=== PATIENT | male | born 1985 | race Caucasian/White ===

== ENCOUNTER 2017-06-03 14:30 | Outpatient (RCR) | payer MEDICARE, BC ==
[2016-04-05 09:57] VITALS: BMI 23.1
--- NOTE | 2017-05-27 15:45 | PT INITIAL EVALUATION ---
MEDICAL DIAGNOSIS: L) LE ulcer TREATMENT DIAGNOSIS: L) LE venous stasis ulcer s/p traumatic injury DATE OF ONSET: 05/20/17 SUBJECTIVE: . Pt reports that he had a "Grand Mal Seizure" about a week ago [place] of [place] cour[place]. At that time he reports that he lost consciousness and injured his L) LE. He developed wounds and edema on the L) LE and was referred for PT wound care by his PCP. REHAB PROBLEM LIST: Open wound L) LE and increased edema of L) LE PREVIOUS MEDICAL HISTORY: See EMR, complex psycho-social history, seizures OBJECTIVE: Wound measurements: L) anterior bang 1 cm L x 0.8 cm W x0.2 cm D Girth Measurements: R) LE: superior to malleoli: 27 cm mid calf: 31 cm L) LE superior to malleoli: 31 cm mid calf: 43 cm ABIs: R) LE: 1.12 L) LE: 1.3 ASSESSMENT: Pt presents with significant edema of the L) distal LE with a small wound present on the distal bang with surrounding excoriation and superficial scratches. PT assessed pt's ROM and resisted muscle testing, with no obvious increase in pain nor evidence of musculoskeletal injury at this time. PT cleansed the distal LE with a washcloth and soap and completed conservative, selective debridement of non-viable tissue and slough with tweezers to the depth of the subcutaneous tissue in order to reveal wound base on the anterior bang. ABIs were completed bilaterally and found to be WNL. PT placed petroleum based moisture barrier cream on the LE and then applied 2 stage compression wraps in a retrograde fashion. Pt educated on importance of LE elevation to assist with edema management and wound healing. He was encouraged to maintain LE wrap in place until f/u appt next Tuesday. All of this information was also relayed to the patient's mother who was present in the waiting room. The patient will benefit from skilled PT wound care to include sharps debridement, advanced wound care product selection and application as well as compression therapy to facilitate wound healing. Short Term Goals 1: Pt to remain dressing dry and intact in between visits 2: Wound to demonstrate 100% granulation tissue 3: Wound to gradually epithelialize from edges inward and demo 100% closure 4: Pt to obtain appropriate compression garment to manage LE edema Patient's Goals: Non expressed PLAN: Patient to be seen for skilled PT wound care to include sharps debridement, advanced wound care product selection and application as well as compression therapy to facilitate wound healing 2x/Week for up to 90 days Thank you for this referral. If you have any questions, comments, or concerns about this report or plan, please contact me at . Jing Sandra, PT, DPT [facility]
[~2017-06-03 14:30] MED LIST: ASPI-1403 PO; ASPI-1471 PO; CBD OIL; CEFU250T11 PO; CEPH500T7 PO; CHL25 PO; CHOL10005 PO; CHOL200038 PO; CLI150 PO; CLIN-75 PO; CYC10 PO; CYCL10TA29 PO; DIA5 PO; DIAZ-311 PO; DIV250 PO; DIV500 PO; DIVA250T84 PO; DIVA500T98 PO; FOL1 PO; FOLI-68 PO; GABA-503 PO; GABA-549 PO; HYDR-4309 PO; IBU800 PO; IBUP600T22 PO; IBUP800T37 PO; LAC100PT GT; LAC100PT PO; LAC200PT JT; LAC200PT PO; LACO150T4 PO; LAM25 PO; LAMO25TA64 PO; LEVO750T25 PO; LIDO20SO21 MM; LOR1 PO; LOR5 PO; LORA-1458 PO; MILK140C3 PO; MULT-7 PO; MULT-859 PO; NO MEDICATIONS; OLAN5TAB25 PO; OMEG-11 PO; PHEN100 PO; PRE20 PO; PRED20TA6 PO; PROM-110 PO; SERT20OR6 PO; SULF-198 PO; THIA100T2 PO; THIA100T3 PO; TRA50 PO; TRIA15OI20 TP; [UNRECOGNIZED DRUG - CODE] PO; [UNRECOGNIZED DRUG - OTHER]; no routine meds; vitamins
--- NOTE | 2017-06-03 16:58 | PT PLAN OF CARE ---
Physician: Dr. Bedoya Patient is being seen: Jorge Luis Mckeon Therapist: Jing Sandra, PT, DPT Medical Diagnosis: L) LE ulcer Treatment Diagnosis: L) LE venous stasis ulcer s/p traumatic injury Date of Onset: 05/20/17 Date of Initial Evaluation: 05/27/17 Date patient was last seen: 06/03/17 Number of treatments: 3 Number of cancellations/No shows: 0 INTERVENTIONS: Pt has been seen for advanced wound care product selection and skilled sharps debridement as well as compression wrap application. GOALS: Met 1: Pt to remain dressing dry and intact in between visits 2: Wound to demonstrate 100% granulation tissue 3: Wound to gradually epithelialize from edges inward and demo 100% closure 4: Pt to obtain appropriate compression garment to manage LE edema (pt and pt's mother report that he does own compression socks) PATIENT'S GOAL: Wound healing Status of Patient's Goals: Met Patient Compliance: Good Assessment: Pt reports decreased pain in the L) LE today. Scant drainage present on compression wrap of L) LE, with complete epithelization of wound on anterior bang. Area of distal LE demonstrates erythema and continued excoriation of skin with no definitive areas of breakdown requiring skilled PT debridement at this time. PT would like the pt to f/u with his PCP regarding the ongoing irritation and edema of the L) LE. With the pt's mother present, PT recommended that the pt continue to use mild soap to cleanse the LE, cover the area with gentle lotion and leave the LE open to air. The pt and his mother report that he does have compression socks, PT recommended that the pt wear these until f/u with PCP. Pt and mother are agreeable to this POC, message left with Dr. Bedoya's nurse. Thank you for this referral. If you have any questions, comments, or concerns about this report or plan, please contact me at . Jing Sandra, PT, [facility]
== END 2017-06-03 18:00 | disposition home or self-care (01) ==
LOC: PT 14:30
PROVIDERS: ATTEND Emergency Medicine
DX: I83.028 Varicose veins of left lower extremity with ulcer other part of lower leg (principal); R60.9 Edema, unspecified; G40.409 Other generalized epilepsy and epileptic syndromes, not intractable, without status epilepticus
CPT/HCPCS: 97161

== ENCOUNTER 2017-07-01 11:15 | Emergency (ER) | payer MEDICARE, BC ==
[2016-04-05 09:57] VITALS: Ht 182.9 cm; Wt 68.0 kg
[~2017-07-01] VITALS: Ht 182.9 cm; Wt 68.0 kg
[~2017-07-01 11:15] MED LIST changes: -COMPRESSION HOSE; -FURO-45 PO; -SERT-173 PO; +SERT20OR6 PO
--- NOTE | 2017-07-01 11:34 | ER Report ---
History and Physical Time Seen By MD: 11:34 Hx. of Stated Complaint: PT HAS A VERY SWOLLEN L LEG FOR 6-12 MONTHS. HE IS SEEN BY DR BEDOYA FOR THIS , BUT ALL ANTIBX INCREASE HIS SEIZURES. SO, HE HAS BEEN SELF MEDICATING WITH ALCOHOL. 1 LITER OF ETOH THIS AM. HAS NOT BEEN EATING MUCH BECAUSE THERE IS NO ONE TO COOK FOR HIM. HIS MOM VISITS EVERYDAY, BUT HIS DAD 19 YRS AGO AND HE IS VERY SAD ABOUT THIS HPI/ROS CHIEF COMPLAINT: Alcohol abuse, leg pain, depression HISTORY OF PRESENT ILLNESS: 31-year-old male patient presents to emergency room with complaint of alcohol abuse, leg pain and depression. Patient states that he drinks a significant amount of vodka on a daily basis. He states that he's had a liter of vodka this morning. He states that he drinks which seems to help his anxiety as well as his seizures. He states he's never had a seizure when he is drinking. He states that he drinks mostly because his father 17 years ago and he is just sad about that. He states that he cries daily about the passing of his father. He states that shortly after his father passed way that his grandmother moved him from [place] to [place]. He states that 5 years after they moved to [place] his grandmother . He states that he also is very sad about that she was an acting father figure. He states that he has a neighbor who cooks for him but he does not go to his house for dinner. He states that his mother comes over daily, but it is gotten the point where he is not letting her in the house. He states that he is not showered or brushed his teeth in several days. He that he is anxious about losing his leg. He states that he has pain and has difficult time walking because of that. REVIEW OF SYSTEMS: Respiratory: No cough, no dyspnea. Cardiovascular: No chest pain, no palpitations. Gastrointestinal: No vomiting, no abdominal pain. Musculoskeletal: No back pain. Allergies: Coded Allergies: Penicillins (Verified Allergy, Severe, ANAPHYLAXIS, 07/01/17) phenobarbital (Verified Allergy, Unknown, 07/01/17) Reported by Patient but states he doesnt know what happens to him. Uncoded Allergies: VERY SENSITIVE TO ALL MEDICATIONS (Allergy, Mild, 06/02/11) Home Meds Reported Medications [place]-3 Fatty Acids/Fish Oil (FISH OIL 1,000 MG CAPSULE) 1 Each Capsule, 1 EACH PO QDAY, CAPSULE 04/21/17 Cholecalciferol (Vitamin D3) (VITAMIN D3) 1,000 Unit Tablet, 1000 UNIT PO QDAY, TAB 04/21/17 Folic Acid (FOLIC ACID) 1 Mg Tablet, 1 MG PO QDAY, TAB 04/21/17 Thiamine Mononitrate (VITAMIN B-1) 100 Mg Tablet, 100 MG PO DAILY 02/13/17 Multivits,Ca,Minerals/Iron/FA (Thera M Plus Tablet) 1 Each Tablet, 1 TAB PO DAILY 02/13/17 Past Medical/Surgical History Patient has a past medical history of aneurysm, epilepsy, Tourette's, DVT, urinary incontinence, fracture of right tib-fib, jaw fracture, clavicle fracture , neck fracture, alcohol use, depression. Patient has a surgical history of right leg surgery. Patient has a family medical history of psychiatric problems. Reviewed Nurses Notes: Yes Hx Smoking: Yes Smoking Status: Former Smoker Exposure to Second Hand Smoke?: Yes Hx Substance Use Disorder: No (Patient reports drug problem 10 years ago) Hx Alcohol Use: Yes Constitutional Vital Sign - Last 24 Hours 07/01/17 07/01/17 07/01/17 07/01/17 11:12 11:15 11:30 11:45 Temp 99.5 Pulse 96 97 Resp 20 B/P (MAP) 122/79 125/87 (100) Pulse Ox 99 96 96 O2 Delivery Room Air 07/01/17 07/01/17 07/01/17 07/01/17 12:00 12:15 12:30 12:35 Pulse 99 ??? B/P (MAP) 118/87 (97) 115/74 (88) Pulse Ox 96 07/01/17 07/01/17 07/01/17 07/01/17 13:00 13:05 13:30 13:35 Pulse 95 120 B/P (MAP) 121/92 (102) 134/65 (88) Pulse Ox 97 100 07/01/17 07/01/17 07/01/17 07/01/17 14:00 14:05 14:10 14:30 Pulse 109 108 B/P (MAP) 120/65 (83) 113/64 (80) Pulse Ox 98 97 2/07/1707/01/17 07/01/17 07/01/17 15:00 15:10 15:30 15:50 Pulse 99 106 112 B/P (MAP) 118/74 (89) 120/80 (93) Pulse Ox 98 96 95 07/01/17 16:00 B/P (MAP) 112/70 (84) Physical Exam General Appearance: The patient is alert, has no immediate need for airway protection and no current signs of toxicity. ENT: Tympanic membranes are pearly-levi, auditory canals are patent, mixed mucous membranes are moist. Respiratory: Chest is non tender, lungs are clear to auscultation. Cardiac: regular rate and rhythm Gastrointestinal: Abdomen is soft and non tender, no masses, bowel sounds normal. Musculoskeletal: Neck: Neck is supple and non tender. Extremities have full range of motion and are non tender. Patient does have swelling, erythema to the left lower extremity. Skin: No rashes or lesions. DIFFERENTIAL DIAGNOSIS: After history and physical exam differential diagnosis was considered for DVT, cellulitis, depression, alcohol abuse. Medical Decision Making Data Points Result Diagram: 07/01/17 1104 07/01/17 1104 Laboratory Hematology Test 07/01/17 11:04 07/01/17 15:09 Red Blood Count 4.40 M/uL (4.00-5.60) Mean Corpuscular Volume 100.7 fL (80.0-96.0) Mean Corpuscular Hemoglobin 34.7 pg (26.0-33.0) Mean Corpuscular Hemoglobin Concent 34.4 g/dL (32.0-36.0) Red Cell Distribution Width 14.3 % (11.5-14.5) Mean Platelet Volume 7.3 fL (7.2-11.1) Neutrophils (%) (Auto) 72.0 % (39.4-72.5) Lymphocytes (%) (Auto) 18.0 % (17.6-49.6) Monocytes (%) (Auto) 8.9 % (4.1-12.4) Eosinophils (%) (Auto) 0.9 % (0.4-6.7) Basophils (%) (Auto) 0.2 % (0.3-1.4) Nucleated RBC Relative Count (auto) 0.1 /100WBC Neutrophils # (Auto) 4.6 K/uL (2.0-7.4) Lymphocytes # (Auto) 1.2 K/uL (1.3-3.6) Monocytes # (Auto) 0.6 K/uL (0.3-1.0) Eosinophils # (Auto) 0.1 K/uL (0.0-0.5) Basophils # (Auto) 0.0 K/uL (0.0-0.1) Nucleated RBC Absolute Count (auto) 0.00 K/uL Sodium Level 140 mmol/L (137-145) Potassium Level 3.8 mmol/L (3.5-5.0) Chloride Level 99 mmol/L (98-107) Carbon Dioxide Level 23 mmol/L (22-30) Blood Urea Nitrogen 11 mg/dl (9-21) Creatinine 0.80 mg/dl (0.66-1.25) Glomerular Filtration Rate Calc > 60.0 Random Glucose 111 mg/dl (75-110) Calcium Level 8.8 mg/dl (8.4-10.2) Magnesium Level 1.7 mg/dl (1.7-2.2) Total Bilirubin 1.2 mg/dl (0.2-1.3) Aspartate Amino Transf (AST/SGOT) 78 U/L (0-35) Alanine Aminotransferase (ALT/SGPT) 73 U/L (0-56) Alkaline Phosphatase 127 U/L (0-126) Total Protein 8.0 gm/dl (6.3-8.2) Albumin 4.3 g/dl (3.5-5.0) Thyroid Stimulating Hormone (TSH) 0.56 uIU/ml (0.46-4.68) Salicylates Level < 10 mg/L Salicylate Last Dose Date unk Acetaminophen Level < 10 ug/ml Serum Alcohol 98 mg/dl Troponin I < 0.012 ng/ml Chemistry Test 07/01/17 11:04 07/01/17 15:09 White Blood Count 6.5 k/uL (4.5-11.0) Red Blood Count 4.40 M/uL (4.00-5.60) Hemoglobin 15.2 g/dL (14.0-18.0) Hematocrit 44.3 % (42.0-52.0) Mean Corpuscular Volume 100.7 fL (80.0-96.0) Mean Corpuscular Hemoglobin 34.7 pg (26.0-33.0) Mean Corpuscular Hemoglobin Concent 34.4 g/dL (32.0-36.0) Red Cell Distribution Width 14.3 % (11.5-14.5) Platelet Count 207 K/uL (150-450) Mean Platelet Volume 7.3 fL (7.2-11.1) Neutrophils (%) (Auto) 72.0 % (39.4-72.5) Lymphocytes (%) (Auto) 18.0 % (17.6-49.6) Monocytes (%) (Auto) 8.9 % (4.1-12.4) Eosinophils (%) (Auto) 0.9 % (0.4-6.7) Basophils (%) (Auto) 0.2 % (0.3-1.4) Nucleated RBC Relative Count (auto) 0.1 /100WBC Neutrophils # (Auto) 4.6 K/uL (2.0-7.4) Lymphocytes # (Auto) 1.2 K/uL (1.3-3.6) Monocytes # (Auto) 0.6 K/uL (0.3-1.0) Eosinophils # (Auto) 0.1 K/uL (0.0-0.5) Basophils # (Auto) 0.0 K/uL (0.0-0.1) Nucleated RBC Absolute Count (auto) 0.00 K/uL Glomerular Filtration Rate Calc > 60.0 Calcium Level 8.8 mg/dl (8.4-10.2) Magnesium Level 1.7 mg/dl (1.7-2.2) Total Bilirubin 1.2 mg/dl (0.2-1.3) Aspartate Amino Transf (AST/SGOT) 78 U/L (0-35) Alanine Aminotransferase (ALT/SGPT) 73 U/L (0-56) Alkaline Phosphatase 127 U/L (0-126) Total Protein 8.0 gm/dl (6.3-8.2) Albumin 4.3 g/dl (3.5-5.0) Thyroid Stimulating Hormone (TSH) 0.56 uIU/ml (0.46-4.68) Salicylates Level < 10 mg/L Salicylate Last Dose Date unk Acetaminophen Level < 10 ug/ml Serum Alcohol 98 mg/dl Troponin I < 0.012 ng/ml Toxicology Test 07/01/17 11:04 Salicylates Level < 10 mg/L Salicylate Last Dose Date unk Acetaminophen Level < 10 ug/ml Serum Alcohol 98 mg/dl EKG/Imaging EKG Interpretation 12 lead EKG: Done at 1229 Rhythm: normal sinus rhythm with a ventricular rate of 92 bpm [place]: normal QRS: normal ST segments: normal 12 lead EKG: Done at 1434 Rhythm: Sinus tachycardia with ventricular rate of 108 bpm [place]: normal QRS: normal ST segments: normal Imaging Exam type: CHEST PA AND LAT History: chest tightness Comparison: March 17, 2017. Findings: The lungs are free of acute effusions, infiltrates or edema. There is no evidence of a pneumothorax or pneumomediastinum. The trachea is midline. The cardiac silhouette is normal in size. IMPRESSION: 1. No acute cardiac pulmonary process is seen Report Dictated By: Saray Castillo MD at 07/01/2017 2:59 PM Report E-Signed By: Saray Castillo MD at 07/01/2017 3:00 PM Exam type: VENOUS DOPP LOW LEFT EXTREMITY History: swelling Comparison: February 12, 2017. Findings: The left lower extremity veins were imaged including the left common femoral vein, greater saphenous vein superficial femoral vein, popliteal vein, peroneal vein, posterior tibial vein and anterior tibial vein revealing no evidence of trauma thrombi the veins were compressible and phasic.. Incidentally noted is a 1 x 3.2 cm fatty replaced left inguinal lymph node IMPRESSION: 1. No sonographic evidence of DVT involving the left lower extremity veins Report Dictated By: Saray Castillo MD at 07/01/2017 2:05 PM Report E-Signed By: Saray Castillo MD at 07/01/2017 2:07 PM ED Course/Re-evaluation ED Course Patient was admitted to exam, history and physical were obtained. Differential diagnoses were considered. On examination patient has swelling to the left lower extremity, is erythematous, he does have several areas where there was scratching and he has scabs. Labs for a behavioral health admission were done. Patient had an alcohol of 98, CBC was unremarkable, CMP showed no acute findings. An ultrasound of the left lower extremity was ordered. When the leather coater tech went in to do the ultrasound patient had a seizure. The seizure lasted approximately one minute. Patient was given 1 mg of Ativan. He then given 0.5 mg of Ativan orally prior to that. He was complaining of anxiety at that time. Was also complaining of chest tightness and a EKG, chest x-ray and troponin were done. The troponin was negative, EKG was a normal sinus rhythm with a ventricular rate of 95 bpm. The patient was postictal for a period of time. A repeat troponin was done as well as a repeat EKG. Patient had a sinus tachycardia with a ventricular rate of 105 bpm. Troponin was again negative. I went and discussed the findings with the patient. We discussed starting him on antibiotics for his cellulitis which he refused. We will go ahead and discharge patient home as we have no other means to help the patient. The patient was concerned about the swelling of his leg, however without a DVT the patient can elevate his leg as well as his compression. Patient has been given Ryan wrap to put on his legs in the past but the patient never used it. Patient is to follow-up with his primary care provider on July 07 at 1:30 PM. Patient verbalized understanding and agreement with plan. Decision to Disposition Date: Jul 01, 2017 Decision to Disposition Time: 15:54 Depart Departure Latest Vital Signs Vital Signs Date Time Temp Pulse Resp B/P (MAP) Pulse Ox O2 Delivery O2 Flow Rate FiO2 07/01/17 16:00 112/70 (84) 07/01/17 15:50 112 95 07/01/17 11:12 99.5 20 Room Air Impression: Primary Impression: Venous ulcer of left leg Additional Impressions: Cellulitis Seizure disorder Alcohol intoxication Condition: Improved Disposition: HOME OR SELF-CARE Referrals: STEPHANIE BEDOYA MD (PCP) Patient Instructions: Cellulitis (ED) Additional Instructions: Follow up with Dr. Bedoya, 07/07/2017 at 1:30pm. Quit drinking alcohol, go to [place] for inpatient treatment as you have been looking. Make sure that you are getting some exercise daily, walking as much as possible. Take Tylenol or Ibuprofen as needed for pain. Elevate the foot when not active. Start taking more ownership of your life, make things that you want to happen happen; walk, shower, quit drinking. Problem Qualifiers Additional Impressions: Cellulitis Site of cellulitis: extremity Site of cellulitis of extremity: lower extremity Laterality: left Qualified Codes: L03.116 - Cellulitis of left lower limb Alcohol intoxication Complication of substance-induced condition: uncomplicated Qualified Codes: F10.920 - Alcohol use, unspecified with intoxication, uncomplicated PURNIMA PICKETT Jul 01, 2017 11:34
[2017-07-01 11:42] LABS: PLATELET COUNT, AUTOMATED 207 K/uL (150-450)
[2017-07-01] MEDS ORDERED: THIAMINE HCL(*) 200 MG/2 ML IN 100 MG, FOLIC ACID(*) 50 MG/10 ML INJ 1 MG, MULTIVITAMIN... IV ONE (11:56)
--- NOTE | 2017-07-01 12:45 | EKG ---
FACILITY: [facility] PATIENT NAME: CONSUELO PERES : [id number] MR: [id number] V: [id number] EXAM DATE: ORDERING PHYSICIAN: PURNIMA PICKETT TECHNOLOGIST: Test Reason : Blood Pressure : / mmHG Vent. Rate : 092 BPM Atrial Rate : 092 BPM P-R Int : 138 ms QRS Dur : 086 ms QT Int : 374 ms P-R-T Axes : 050 068 055 degrees QTc Int : 462 ms Normal sinus rhythm Normal ECG When compared with ECG of 18-APR-2017 10:40, No significant change was found Confirmed by GUTIERREZ MORALES ([id number]) on 07/02/2017 7:44:47 AM Referred By: NIEVES Confirmed By:GUTIERREZ MORALES
[2017-07-01] MEDS ORDERED: LORazepam 0.5 MG TAB PO ONE (12:50)
[2017-07-01] MEDS ORDERED: LORazepam 2 MG/ML VIAL ONE (13:19)
--- NOTE | 2017-07-01 14:12 | RADIOLOGY IMAGING REPORT ---
FACILITY: [facility] PATIENT NAME: Jorge Luis Mckeon : 1985 MR: [id number] V: [id number] EXAM DATE: ORDERING PHYSICIAN: PURNIMA PICKETT TECHNOLOGIST: Location: [facility] [place] Patient: Jorge Luis Mckeon : 1985 Visit/Account:[id number] Date of Sevice: 07/01/2017 Exam type: VENOUS DOPP LOW LEFT EXTREMITY History: swelling Comparison: February 12, 2017. Findings: The left lower extremity veins were imaged including the left common femoral vein, greater saphenous vein superficial femoral vein, popliteal vein, peroneal vein, posterior tibial vein and anterior tibi al vein revealing no evidence of trauma thrombi the veins were compressible and phasic.. Incidentall y noted is a 1 x 3.2 cm fatty replaced left inguinal lymph node IMPRESSION: 1. No sonographic evidence of DVT involving the left lower extremity veins Report Dictated By: Saray Castillo MD at 07/01/2017 2:05 PM Report E-Signed By: Saray Castillo MD at 07/01/2017 2:07 PM WSN:[email or web address]
--- NOTE | 2017-07-01 15:04 | RADIOLOGY IMAGING REPORT ---
FACILITY: [facility] [place] PATIENT NAME: Jorge Luis Mckeon : 1985 MR: [id number] V: [id number] EXAM DATE: ORDERING PHYSICIAN: PURNIMA PICKETT TECHNOLOGIST: Location: [facility] Patient: Jorge Luis Mckeon : 1985 Visit/Account:[id number] Date of Sevice: 07/01/2017 Exam type: CHEST PA AND LAT History: chest tightness Comparison: March 17, 2017. Findings: The lungs are free of acute effusions, infiltrates or edema. There is no evidence of a pneumothorax or pneumomediastinum. The trachea is midline. The cardiac silhouette is normal in size. IMPRESSION: 1. No acute cardiac pulmonary process is seen Report Dictated By: Saray Castillo MD at 07/01/2017 2:59 PM Report E-Signed By: Saray Castillo MD at 07/01/2017 3:00 PM WSN:[email or web address]
--- NOTE | 2017-07-01 15:09 | EKG ---
FACILITY: [facility] [place] PATIENT NAME: CONSUELO PERES : [id number] MR: [id number] V: [id number] EXAM DATE: ORDERING PHYSICIAN: PURNIMA PICKETT TECHNOLOGIST: Test Reason : Blood Pressure : / mmHG Vent. Rate : 108 BPM Atrial Rate : 108 BPM P-R Int : 144 ms QRS Dur : 088 ms QT Int : 348 ms P-R-T Axes : 057 076 056 degrees QTc Int : 466 ms Sinus tachycardia Otherwise normal ECG When compared with ECG of 01-JUL-2017 12:29, No significant change was found Confirmed by GUTIERREZ MORALES ([id number]) on 07/02/2017 7:44:53 AM Referred By: Confirmed By:GUTIERREZ MORALES
[2017-07-01 16:00] VITALS: BP 112/70
== END 2017-07-01 16:36 | disposition home or self-care (01) ==
LOC: ER 11:17
DX: I86.8 Varicose veins of other specified sites (principal); F10.920 Alcohol use, unspecified with intoxication, uncomplicated; L03.116 Cellulitis of left lower limb; G40.909 Epilepsy, unspecified, not intractable, without status epilepticus
CPT/HCPCS: 71046; 83735; 84443; 84484; 85025; 93005; 93971; 99285; A9270; G0480; J2060; J3411; J3475; J7030; 80320; 80329; 82040; 82247; 82310; 82374; 82435; 82565; 82947; 84075; 84132; 84155; 84295; 84450; 84460; 84520; 96361; 96365; 96372; 96374; 96375

== ENCOUNTER → 2017-07-01 | Outpatient (CLI) | payer MEDICARE, BC ==
[2016-04-05 09:57] VITALS: BMI 23.1
[~2017-07-01] MED LIST changes: +COMPRESSION HOSE; +FURO-45 PO; +SERT-173 PO; -SERT20OR6 PO
== END ==
LOC: AMB 10:44
PROVIDERS: ATTEND Nurse Practitioner
DX: M79.605 Pain in left leg (principal); M79.89 Other specified soft tissue disorders; L98.9 Disorder of the skin and subcutaneous tissue, unspecified
CPT/HCPCS: A0425; A0427

== ENCOUNTER 2017-07-08 12:53 | Emergency (ER) | payer MEDICARE, BC ==
[2016-04-05 09:57] VITALS: Ht 185.4 cm; Wt 86.2 kg
[~2017-07-08] VITALS: Ht 185.4 cm; Wt 86.2 kg
[~2017-07-08 12:53] MED LIST changes: +SERT-173 PO; -SERT20OR6 PO
--- NOTE | 2017-07-08 13:26 | ER Report ---
History and Physical Time Seen By MD: 13:02 Hx. of Stated Complaint: LEFT LEG SWOLLEN AND PAINFUL HPI/ROS CHIEF COMPLAINT: Left leg pain and swelling HISTORY OF PRESENT ILLNESS: Patient is a 31-year-old male who presents the ED with complaint of left leg pain and swelling that is had for "a long time". He is unable to give me an exact day. I did ask him if he has any recent injuries. He states that he could have head injury because he has seizures often. He also states that he does have alcoholism and sometimes will fall. He states that he is trying to stop drinking. Patient states that he was seen by his primary care provider last week and did have an ultrasound of his leg that did not reveal any DVT. He states that his leg has been worse since. He states that he was not placed on any antibiotics. He states that the antibiotics causes seizures. He denies any fever. REVIEW OF SYSTEMS: Constitutional: No fever, no chills. Eyes: No discharge. ENT: No sore throat. Cardiovascular: No chest pain, no palpitations. Respiratory: No cough, no shortness of breath. Gastrointestinal: No abdominal pain, no vomiting. Genitourinary: No hematuria. Musculoskeletal: No back pain. Skin: See history of present illness. Neurological: No headache. Allergies: Coded Allergies: Penicillins (Verified Allergy, Severe, ANAPHYLAXIS, 07/08/17) phenobarbital (Verified Allergy, Unknown, 07/08/17) Reported by Patient but states he doesnt know what happens to him. Uncoded Allergies: VERY SENSITIVE TO ALL MEDICATIONS (Allergy, Mild, 06/02/11) Home Meds Reported Medications [place]-3 Fatty Acids/Fish Oil (FISH OIL 1,000 MG CAPSULE) 1 Each Capsule, 1 EACH PO QDAY, CAPSULE 04/21/17 Cholecalciferol (Vitamin D3) (VITAMIN D3) 1,000 Unit Tablet, 1000 UNIT PO QDAY, TAB 04/21/17 Folic Acid (FOLIC ACID) 1 Mg Tablet, 1 MG PO QDAY, TAB 04/21/17 Thiamine Mononitrate (VITAMIN B-1) 100 Mg Tablet, 100 MG PO DAILY 02/13/17 Multivits,Ca,Minerals/Iron/FA (Thera M Plus Tablet) 1 Each Tablet, 1 TAB PO DAILY 02/13/17 Reviewed Nurses Notes: Yes Old Medical Records Reviewed: Yes Hx Smoking: Yes Smoking Status: Former Smoker Exposure to Second Hand Smoke?: Yes Hx Substance Use Disorder: No (Patient reports drug problem 10 years ago) Hx Alcohol Use: Yes (1 LITER DAILY) Constitutional Vital Sign - Last 24 Hours 07/08/17 13:01 Temp 100.2 Pulse 113 Resp 92 B/P (MAP) 133/82 Pulse Ox 92 O2 Delivery Room Air Physical Exam General Appearance: The patient is alert, has no immediate need for airway protection and no signs of toxicity. Patient appears to be in no acute distress. Eyes: Pupils equal and round no pallor or injection. ENT, Mouth: Mucous membranes are moist. Respiratory: There are no retractions, lungs are clear to auscultation. Cardiovascular: Regular rate and rhythm. ] Skin: There is erythema and swelling noted of the left lower leg. It appears that the erythema starts at the mid calf and and goes down through the entire foot. PT and DP pulses are 2+ with normal capillary refill. Normal sensation. Is have 2-3+ pitting edema in this area. Musculoskeletal: Neck is supple non tender. DIFFERENTIAL DIAGNOSIS: After history and physical exam differential diagnosis was considered for left leg swelling including DVT, cellulitis, fracture, sprain. This is an incomplete list. Medical Decision Making Data Points Result Diagram: 07/08/17 1321 07/08/17 1321 Laboratory Hematology Test 07/08/17 13:21 Red Blood Count 4.28 M/uL (4.00-5.60) Mean Corpuscular Volume 101.4 fL (80.0-96.0) Mean Corpuscular Hemoglobin 34.5 pg (26.0-33.0) Mean Corpuscular Hemoglobin Concent 34.0 g/dL (32.0-36.0) Red Cell Distribution Width 13.8 % (11.5-14.5) Mean Platelet Volume 7.0 fL (7.2-11.1) Neutrophils (%) (Auto) 76.7 % (39.4-72.5) Lymphocytes (%) (Auto) 11.9 % (17.6-49.6) Monocytes (%) (Auto) 10.3 % (4.1-12.4) Eosinophils (%) (Auto) 0.3 % (0.4-6.7) Basophils (%) (Auto) 0.8 % (0.3-1.4) Nucleated RBC Relative Count (auto) 0.1 /100WBC Neutrophils # (Auto) 5.1 K/uL (2.0-7.4) Lymphocytes # (Auto) 0.8 K/uL (1.3-3.6) Monocytes # (Auto) 0.7 K/uL (0.3-1.0) Eosinophils # (Auto) 0.0 K/uL (0.0-0.5) Basophils # (Auto) 0.1 K/uL (0.0-0.1) Nucleated RBC Absolute Count (auto) 0.01 K/uL Sodium Level 138 mmol/L (137-145) Potassium Level 3.8 mmol/L (3.5-5.0) Chloride Level 101 mmol/L (98-107) Carbon Dioxide Level 24 mmol/L (22-30) Blood Urea Nitrogen 9 mg/dl (9-21) Creatinine 0.80 mg/dl (0.66-1.25) Glomerular Filtration Rate Calc > 60.0 Random Glucose 123 mg/dl (75-110) Calcium Level 9.1 mg/dl (8.4-10.2) Total Bilirubin 0.8 mg/dl (0.2-1.3) Aspartate Amino Transf (AST/SGOT) 98 U/L (0-35) Alanine Aminotransferase (ALT/SGPT) 94 U/L (0-56) Alkaline Phosphatase 126 U/L (0-126) C-Reactive Protein 1.1 mg/dl (<1.0) Total Protein 7.6 gm/dl (6.3-8.2) Albumin 3.9 g/dl (3.5-5.0) Serum Alcohol < 10 mg/dl Chemistry Test 07/08/17 13:21 White Blood Count 6.7 k/uL (4.5-11.0) Red Blood Count 4.28 M/uL (4.00-5.60) Hemoglobin 14.8 g/dL (14.0-18.0) Hematocrit 43.4 % (42.0-52.0) Mean Corpuscular Volume 101.4 fL (80.0-96.0) Mean Corpuscular Hemoglobin 34.5 pg (26.0-33.0) Mean Corpuscular Hemoglobin Concent 34.0 g/dL (32.0-36.0) Red Cell Distribution Width 13.8 % (11.5-14.5) Platelet Count 206 K/uL (150-450) Mean Platelet Volume 7.0 fL (7.2-11.1) Neutrophils (%) (Auto) 76.7 % (39.4-72.5) Lymphocytes (%) (Auto) 11.9 % (17.6-49.6) Monocytes (%) (Auto) 10.3 % (4.1-12.4) Eosinophils (%) (Auto) 0.3 % (0.4-6.7) Basophils (%) (Auto) 0.8 % (0.3-1.4) Nucleated RBC Relative Count (auto) 0.1 /100WBC Neutrophils # (Auto) 5.1 K/uL (2.0-7.4) Lymphocytes # (Auto) 0.8 K/uL (1.3-3.6) Monocytes # (Auto) 0.7 K/uL (0.3-1.0) Eosinophils # (Auto) 0.0 K/uL (0.0-0.5) Basophils # (Auto) 0.1 K/uL (0.0-0.1) Nucleated RBC Absolute Count (auto) 0.01 K/uL Glomerular Filtration Rate Calc > 60.0 Calcium Level 9.1 mg/dl (8.4-10.2) Total Bilirubin 0.8 mg/dl (0.2-1.3) Aspartate Amino Transf (AST/SGOT) 98 U/L (0-35) Alanine Aminotransferase (ALT/SGPT) 94 U/L (0-56) Alkaline Phosphatase 126 U/L (0-126) C-Reactive Protein 1.1 mg/dl (<1.0) Total Protein 7.6 gm/dl (6.3-8.2) Albumin 3.9 g/dl (3.5-5.0) Serum Alcohol < 10 mg/dl Toxicology Test 07/08/17 13:21 Serum Alcohol < 10 mg/dl ED Course/Re-evaluation ED Course Will obtain labs. 07/08/2017 1:59:58 pm - discussed all labs with patient. Patient has no leukocytosis and no significant elevation of CRP. All labs are essentially normal. Did raise the leg and the erythema didn't dissipate. It appears that this swelling is likely due to venous stasis changes versus lymphedema. Discussed this with him and the importance of wrapping his leg and keeping elevated when resting. Advised to follow up with his primary care provider. [email or web address] technical lead and nurse will wrap leg today. Advised to take Tylenol or ibuprofen for pain relief as needed. Decision to Disposition Date: Jul 08, 2017 Decision to Disposition Time: 14:01 Depart Departure Latest Vital Signs Vital Signs Date Time Temp Pulse Resp B/P (MAP) Pulse Ox O2 Delivery O2 Flow Rate FiO2 07/08/17 13:01 100.2 113 92 133/82 92 Room Air Impression: Primary Impression: Left leg swelling Disposition: HOME OR SELF-CARE Referrals: STEPHANIE FINK MD (PCP) Patient Instructions: Lymphedema (ED), Venous Insufficiency (GEN) Additional Instructions: Keep leg elevated and wrapped when resting. Follow-up with primary care provider in 2-3 days. May take Tylenol or ibuprofen for pain relief. If having any worsening or concerning symptoms may return to the emergency department. BERNADETTE PALUMBO PA-C Jul 08, 2017 13:26
[2017-07-08 13:35] LABS: PLATELET COUNT, AUTOMATED 206 K/uL (150-450)
[2017-07-08 14:26] VITALS: BP 121/87
== END 2017-07-08 14:30 | disposition home or self-care (01) ==
LOC: ER 12:54
DX: M79.89 Other specified soft tissue disorders (principal)
CPT/HCPCS: 85025; 86140; 87070; 87073; 87077; 87186; 99283; G0480; 80320; 82040; 82247; 82310; 82374; 82435; 82565; 82947; 84075; 84132; 84155; 84295; 84450; 84460; 84520

== ENCOUNTER → 2017-07-12 | Emergency (ER) | payer MEDICARE, BC ==
[2016-04-05 09:57] VITALS: Ht 185.4 cm; Wt 86.2 kg
[~2017-07-12] VITALS: Ht 185.4 cm; Wt 86.2 kg
[~2017-07-12] MED LIST changes: +COMPRESSION HOSE; +FURO-45 PO
--- NOTE | 2017-07-12 18:34 | ER Report ---
History and Physical Time Seen By MD: 18:33 HPI/ROS CHIEF COMPLAINT: Medical clearance for admission to mental health facility HISTORY OF PRESENT ILLNESS: 31-year-old male with a known history of alcoholism , seizures, numerous other medical problems. Presents to the ER stating that he was called by [facility] and told to come to the ER for a medical clearance so that he can be admitted to their facility for alcohol withdrawal treatment. Patient states his last alcohol was within hours. Patient voices no complaints. He denies headache, nausea, vomiting, chest pain or shortness of breath. He has chronic edema of the left lower extremity. He has a bruise to his left eyelid that appears to be several days old. Patient states his mom will transport him to [facility] for admission. RECENT DISCHARGE SUMMARY copied from 04/21/2017 noted below: FINAL DIAGNOSES PER DSM-V Alcohol withdrawal, considered complete and minimal to nonexistent in nature. Alcohol use disorder, mild to moderate, important only for its role in continued fictitious disorder. 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 Dependent personality disorder, severe. Ongoing enmeshed codependent unhealthy relationship with his mother with which he lives. Employment and financial stressors. Severe maladaptive stress coping mechanisms. REASON FOR ADMISSION This is a 31-year-old male who is very well known to the emergency room, multiple providers, and this behavioral health unit. The patient was admitted on a voluntary basis for alcohol withdrawal, encouraged strongly by his mother' s report in the ER. The patient was found to not have any notable physiologic withdrawal from alcohol, the patient's mother reporting he is drinking "a half gallon of whiskey a day." Please see H and P for further details on admission. Patient again proved to be a very inaccurate historian, extremely manipulative , both consciously and unconsciously. Patient was noted to purposely walk around on the unit, with obvious feces staining his clothing, in an effort to attract attention, then proclaiming he was unaware of it, when prompted to change clothing. Patient noted to be feigning seizure symptoms on the unit once again with such odd behaviors as during seizure, picking dried mucus from his nares and orally consuming it. This appears to be in an effort to display activities which patient later can deny knowledge or remembering of based on their abnormalcy in an effort to prove seizure activity that is out of his control. Notably, prolactin level remained in normal limits drawn shortly after seizure activity. Patient also displaying at other times other multitude of symptomatology during stay, especially when frustrated, including that he "can't see," "can't breathe," "can't remember." When this did not work, to garnish attention, patient was then assuming threatening posturing positions directed at this provider and threatening this provider with lawsuit. Patient stating to this provider "I have never been angry before." Much time was spent on the unit addressing the loulou and ongoing solidification of fictitious disorder with psychological and physical symptoms, both with this patient and his mother. Patient's mother continues to inadvertently promote the sick role in this patient by allowing cohabitation and focus on rare diseases such as porphyria as the cause of patient's illness, which has already been ruled out. Patient and patient's mother once again encouraged strongly to seek effective outpatient therapy management and to try to separate their lives for the future benefit of this patient. Patient at one point noted to be writing an AMA letter and simultaneously stating "I will in the street as soon as I leave the hospital." Patient stayed enough to ensure that alcohol withdrawal was treated to completion, was found to be insignificant much like it was 1 year ago on the medical floor when patient was treated for alcohol dependence. It is the opinion of this provider that patient is likely portraying a large amount of alcohol consumption to his mother in the home that far exceeds what he is actually drinking in an effort to further use alcoholism as yet another symptom of fictitious disorder. It is notable that patient's mother attends Al- Anon meetings and has for quite some time while the patient himself does little to avoid any alcohol consumption and simultaneously rejects all recommended care of his health and continues to live in her home. Patient was discharged directly into the care of his mother again due to vague threats of harm upon leaving the unit. PHYSICAL EXAMINATION GENERAL: Please see emergency room note. Notable for 31-year-old male who is very well known to the emergency room department. Patient is in no acute distress, having lower extremity cellulitis which patient also does not treat. No acute medical stress. VITAL SIGNS: At time of admission, temperature 98.8, pulse 116, respiratory rate 22, blood pressure 112/81, and pulse oximetry 96 on room air. At time of discharge from [facility], temperature 98.7, pulse 75, respiratory rate 16, blood pressure 108/78, pulse oximetry 94 on room air. LABORATORY DATA Prolactin level drawn shortly after displayed seizure activity found to be within normal limits at 15.1 on the unit. CBC at time of admission showed RBCs low at 3.86, hemoglobin low at 13.2, hematocrit low at 37.8, MCV 97.8 and elevated, and MCH 34.2 and elevated. Platelet count was low at 124. Chemistry panel notable for AST and ALT both elevated at 136 and 105. Troponins undetectable. TSH low at 0.24. Toxicology screen notable for serum alcohol level of 28 upon admission. MENTAL STATUS EXAMINATION AT TIME OF DISCHARGE GENERAL APPEARANCE, BEHAVIOR AND ATTITUDE: This is a slightly disheveled 31- year-old male who continues to avoid most self-care without being prompted. Psychomotor retardation evident. Patient making fair eye contact. Continuing to interact in a sarcastic manner. SPEECH: Intentionally slowed at times, considered baseline for this patient. MOOD: Stated okay. AFFECT: Constricted and baseline for this patient. THOUGHT PROCESSES: Goal directed. Patient's aim was to discharge from the hospital. No loose associations or flight of ideas. THOUGHT CONTENT: Free of any auditory or visual hallucinations, ideas of reference, thought broadcastings, delusions, obsessions, compulsions. Patient now denying suicidal or homicidal thoughts. SENSORIUM: Clear. COGNITION: Alert and oriented to person, place, time, partially to situation, disrupted only by patient's inability to fully comprehend and realize fictitious disorder diagnosis. MEMORY: Immediate, recent, and remote estimated at intact. INTELLIGENCE: Average to slightly below, based on interviews and multiple past admissions. INSIGHT AND JUDGMENT: Remains limited secondary to grossly maladaptive stress coping mechanisms and ongoing fictitious disorder symptomatology and patient's codependent relationship with his mother and patient's lack of interest in deviating from solidification of fictitious disorder. RESULTS OF TESTING AND IMAGING See electronic record. LABORATORY DATA See above. CONSULTATIONS None. TREATMENT The patient received very minimal valium to cover any potential withdrawal, which proved of no concern. Patient was encouraged to participate in individual and group therapy. HOSPITAL COURSE The patient continued to act in a very immature and infantile manner and was an inaccurate historian. Patient noted to be stating pain levels of 10/10 while simultaneously asking if he could exercise or use exercise equipment. Patient rejecting all medications and once again rejecting going back on his medications originally prescribed by neurologist for potential seizure disorder. Patient also indicating that single low dose of Valium caused major side effects. Patient displaying a multitude of infantile behaviors, stating " I can't breathe," stating "I can't see," displaying pseudoseizure activities with purposeful bizarre movements such as picking his nose and eating dried mucus during pseudoseizure activity. Patient threatening to this staff member with threatening posturing and then threatening lawsuit. Much time was spent with both patient and his mother regarding the loulou and ongoing solidification of fictitious disorder in this patient and much guidance was given in an effort to guide patient and his mother away from constant search of medical concerns and instead accepting fictitious disorder and seeking proper treatment for it on an outpatient basis. Outpatient treatment was once again set up to try to alleviate symptoms of this disorder. CONDITION OF PATIENT ON DISCHARGE Stable, considered a minimal risk to himself or others. DISPOSITION Patient discharged to home. Patient would follow up with outpatient therapy and medication management. Patient encouraged to take antibiotic for lower extremity swelling as prescribed by PCP. Patient in need of therapy to foster independence and avoid further solidification of sick role. Medications to include vitamin D3 at 1000 International Units daily, omega 3 at 1000 p.o. q.a.m., folic acid 1 mg daily, vitamin B1 at 100 mg daily, and multivitamin with minerals daily were encouraged. Patient encouraged to take aspirin daily as recommended by primary care provider, which he is not. Patient also encouraged to take Vimpat once again that patient has been prescribed for years and refuses to take to merchant off any actual seizure disorder symptoms. Patient was encouraged to stop all alcohol use. Risks, benefits, and alternatives of above discharge plan were discussed. Informed consent was given to proceed with above discharge plan by both this patient and patient's mother, and patient would call crisis line should symptoms return. It is recommended that if patient return to this ER, for behavioral health symptoms that he and his mother seek treatment at another hospital, as patient has not been making progress with any treatment we have to offer him. Notably both the patient and his Mother continue to ignore pursuit of treatment for factitious disorder, and severe dependent personality disorder, but choose instead to promote a variety of symptomatologies, associated with disorder. <Electronically signed by DANNY MEIER MD> [id number]/ [id number] REVIEW OF SYSTEMS: Respiratory: No cough, no dyspnea. Cardiovascular: No chest pain, no palpitations. Gastrointestinal: No vomiting, no abdominal pain. Musculoskeletal: No back pain. Allergies: Coded Allergies: Penicillins (Verified Allergy, Severe, ANAPHYLAXIS, 07/12/17) phenobarbital (Verified Allergy, Unknown, 07/12/17) Reported by Patient but states he doesnt know what happens to him. Uncoded Allergies: VERY SENSITIVE TO ALL MEDICATIONS (Allergy, Mild, 06/02/11) Home Meds Discontinued Reported Medications [place]-3 Fatty Acids/Fish Oil (FISH OIL 1,000 MG CAPSULE) 1 Each Capsule, 1 EACH PO QDAY, CAPSULE 04/21/17 Cholecalciferol (Vitamin D3) (VITAMIN D3) 1,000 Unit Tablet, 1000 UNIT PO QDAY, TAB 04/21/17 Folic Acid (FOLIC ACID) 1 Mg Tablet, 1 MG PO QDAY, TAB 04/21/17 Thiamine Mononitrate (VITAMIN B-1) 100 Mg Tablet, 100 MG PO DAILY 02/13/17 Multivits,Ca,Minerals/Iron/FA (Thera M Plus Tablet) 1 Each Tablet, 1 TAB PO DAILY 02/13/17 Past Medical/Surgical History Patient has a past medical history of aneurysm, epilepsy, Tourette's, DVT, urinary incontinence, fracture of right tib-fib, jaw fracture, clavicle fracture , neck fracture, alcohol use, depression. Patient has a surgical history of right leg surgery. Patient has a family medical history of psychiatric problems. Reviewed Nurses Notes: Yes Old Medical Records Reviewed: Yes Hx Smoking: Yes Smoking Status: Former Smoker Exposure to Second Hand Smoke?: Yes Hx Substance Use Disorder: No (Patient reports drug problem 10 years ago) Hx Alcohol Use: Yes (1 LITER DAILY) Constitutional Vital Sign - Last 24 Hours 07/12/17 07/12/17 19:42 20:30 Temp 97.9 Pulse 88 86 Resp 14 12 B/P (MAP) 125/80 131/86 (101) Pulse Ox 91 89 O2 Delivery Room Air Physical Exam General Appearance: The patient is alert, has no immediate need for airway protection and no current signs of toxicity. Vital signs stable, afebrile, pulse ox normal HEENT: Pupils equal and round no injection. There is ecchymosis of the left lower lid that appears to be old, facial bones intact, oropharynx without evidence of dental trauma Respiratory: Chest is non tender, lungs are clear to auscultation. No wheezing or rails Cardiac: regular rate and rhythm Gastrointestinal: Abdomen is soft and non tender, no masses, bowel sounds normal. Musculoskeletal: Neck: Neck is supple and non tender. Extremities have full range of motion and are non tender. There is significant edema of the left lower extremity Skin: No rashes or lesions. DIFFERENTIAL DIAGNOSIS: After history and physical exam differential diagnosis was considered for depression including functional and major depression, situational depression, medication side effect, drugs and alcohol abuse. Medical Decision Making Data Points Result Diagram: 07/12/17191607/12/171916 Laboratory Hematology Test 07/12/17 19:17 Red Blood Count 4.21 M/uL (4.00-5.60) Mean Corpuscular Volume 102.0 fL (80.0-96.0) Mean Corpuscular Hemoglobin 34.8 pg (26.0-33.0) Mean Corpuscular Hemoglobin Concent 34.1 g/dL (32.0-36.0) Red Cell Distribution Width 14.2 % (11.5-14.5) Mean Platelet Volume 7.0 fL (7.2-11.1) Neutrophils (%) (Auto) 45.6 % (39.4-72.5) Lymphocytes (%) (Auto) 42.1 % (17.6-49.6) Monocytes (%) (Auto) 8.8 % (4.1-12.4) Eosinophils (%) (Auto) 2.9 % (0.4-6.7) Basophils (%) (Auto) 0.6 % (0.3-1.4) Nucleated RBC Relative Count (auto) 0.0 /100WBC Neutrophils # (Auto) 1.3 K/uL (2.0-7.4) Lymphocytes # (Auto) 1.2 K/uL (1.3-3.6) Monocytes # (Auto) 0.3 K/uL (0.3-1.0) Eosinophils # (Auto) 0.1 K/uL (0.0-0.5) Basophils # (Auto) 0.0 K/uL (0.0-0.1) Nucleated RBC Absolute Count (auto) 0.00 K/uL Sodium Level 140 mmol/L (137-145) Potassium Level 3.9 mmol/L (3.5-5.0) Chloride Level 101 mmol/L (98-107) Carbon Dioxide Level 26 mmol/L (22-30) Blood Urea Nitrogen 10 mg/dl (9-21) Creatinine 0.70 mg/dl (0.66-1.25) Glomerular Filtration Rate Calc > 60.0 Random Glucose 95 mg/dl (75-110) Calcium Level 9.0 mg/dl (8.4-10.2) Magnesium Level 1.9 mg/dl (1.7-2.2) Total Bilirubin 0.5 mg/dl (0.2-1.3) Aspartate Amino Transf (AST/SGOT) 104 U/L (0-35) Alanine Aminotransferase (ALT/SGPT) 107 U/L (0-56) Alkaline Phosphatase 102 U/L (0-126) Total Protein 7.6 gm/dl (6.3-8.2) Albumin 3.9 g/dl (3.5-5.0) Salicylates Level < 10 mg/L Salicylate Last Dose Date unk Acetaminophen Level < 10 ug/ml Serum Alcohol 126 mg/dl Chemistry Test 07/12/17 19:17 White Blood Count 2.9 k/uL (4.5-11.0) Red Blood Count 4.21 M/uL (4.00-5.60) Hemoglobin 14.7 g/dL (14.0-18.0) Hematocrit 42.9 % (42.0-52.0) Mean Corpuscular Volume 102.0 fL (80.0-96.0) Mean Corpuscular Hemoglobin 34.8 pg (26.0-33.0) Mean Corpuscular Hemoglobin Concent 34.1 g/dL (32.0-36.0) Red Cell Distribution Width 14.2 % (11.5-14.5) Platelet Count 180 K/uL (150-450) Mean Platelet Volume 7.0 fL (7.2-11.1) Neutrophils (%) (Auto) 45.6 % (39.4-72.5) Lymphocytes (%) (Auto) 42.1 % (17.6-49.6) Monocytes (%) (Auto) 8.8 % (4.1-12.4) Eosinophils (%) (Auto) 2.9 % (0.4-6.7) Basophils (%) (Auto) 0.6 % (0.3-1.4) Nucleated RBC Relative Count (auto) 0.0 /100WBC Neutrophils # (Auto) 1.3 K/uL (2.0-7.4) Lymphocytes # (Auto) 1.2 K/uL (1.3-3.6) Monocytes # (Auto) 0.3 K/uL (0.3-1.0) Eosinophils # (Auto) 0.1 K/uL (0.0-0.5) Basophils # (Auto) 0.0 K/uL (0.0-0.1) Nucleated RBC Absolute Count (auto) 0.00 K/uL Glomerular Filtration Rate Calc > 60.0 Calcium Level 9.0 mg/dl (8.4-10.2) Magnesium Level 1.9 mg/dl (1.7-2.2) Total Bilirubin 0.5 mg/dl (0.2-1.3) Aspartate Amino Transf (AST/SGOT) 104 U/L (0-35) Alanine Aminotransferase (ALT/SGPT) 107 U/L (0-56) Alkaline Phosphatase 102 U/L (0-126) Total Protein 7.6 gm/dl (6.3-8.2) Albumin 3.9 g/dl (3.5-5.0) Salicylates Level < 10 mg/L Salicylate Last Dose Date unk Acetaminophen Level < 10 ug/ml Serum Alcohol 126 mg/dl Toxicology Test 07/12/17 19:17 Salicylates Level < 10 mg/L Salicylate Last Dose Date unk Acetaminophen Level < 10 ug/ml Serum Alcohol 126 mg/dl ED Course/Re-evaluation ED Course Patient was admitted to an examination room. H&P was done. The differential diagnoses was considered. Patient's previous records were reviewed extensively. Diagnostic laboratory studies for medical clearance were performed. Patient's asymptomatic. His vital signs are stable. He is afebrile , pulse ox is normal He admits to drinking. His blood alcohol returns at 126. He has elevated MCV. His LFTs are mildly elevated. Contact was made with [facility]. They are aware of the patient. They are waiting full medical clearance and diagnostic test results.. 07/12/2017 9:48:25 pm patient was seen leaving the waiting room and entering a car on the surveillance video. He would not cooperate and provide a decent urine specimen to run analysis on. He urinated all over the bathroom floor. I suspect he did this on purpose. Decision to Disposition Date: Jul 12, 2017 Decision to Disposition Time: 19:16 Depart Departure Latest Vital Signs Vital Signs Date Time Temp Pulse Resp B/P (MAP) Pulse Ox O2 Delivery O2 Flow Rate FiO2 07/12/17 20:30 86 12 131/86 (101) 89 Room Air 07/12/17 19:42 97.9 Impression: Primary Impression: Alcohol dependence Additional Impressions: Factitious disorder with combined physical and psychological symptoms Venous stasis dermatitis of both lower extremities Condition: Improved Disposition: AGAINST MED ADV / DISCONT CARE Referrals: STEPHANIE FINK MD (PCP) New Scripts No Active Prescriptions or Reported Meds Problem Qualifiers Primary Impression: Alcohol dependence Substance use status: unspecified alcohol-induced disorder Qualified Codes: F10.29 - Alcohol dependence with unspecified alcohol-induced disorder KELLI LIU DO Jul 12, 2017 18:34
[2017-07-12 19:25] LABS: PLATELET COUNT, AUTOMATED 180 K/uL (150-450)
[2017-07-12 20:30] VITALS: BP 131/86
== END ==
LOC: ER 19:28
DX: F10.20 Alcohol dependence, uncomplicated (principal); F68.13 Factitious disorder imposed on self, with combined psychological and physical signs and symptoms
CPT/HCPCS: 36415; 83735; 84443; 85025; 99282; G0480; 80320; 80329; 82040; 82247; 82310; 82374; 82435; 82565; 82947; 84075; 84132; 84155; 84295; 84450; 84460; 84520

== ENCOUNTER 2017-07-22 15:33 | Outpatient (RCR) | payer MEDICARE, BC ==
[2016-04-05 09:57] VITALS: BMI 23.1
--- NOTE | 2017-07-15 16:50 | PT INITIAL EVALUATION ---
MEDICAL DIAGNOSIS: L) LE ulceration and edema TREATMENT DIAGNOSIS: L) posterior calf venous stasis ulcers DATE OF ONSET: Pt presented to ER on 07/01/17 with L) LE edema and wounds SUBJECTIVE: . Patient presents today with extensive edema of the L) LE with dried and flaking skin as well as ulceration present on the posterior calf. Pt' s pants and socks are thoroughly stained with drainage. A majority of history information was obtained from the pt's EMR and most recent ER visits as the pt provides minimal subjective information. This patient was seen for PT wound care from 05/27/17-06/03/17 with good healing of L) LE wound. PT recommended that pt use compression stockings on bilateral LEs and continued routine skin cleansing and moisturizing. He was seen on the ER on 07/01/17 for L) LE edema. A DVT was ruled out, and the pt refused to use antibiotics at D/C. Pt was seen again in the ER on 07/08/17 for continued L) LE swelling and pain. His labs were normal, and he was diagnosed with venous stasis vs. lymphedema of of the L) LE , it was recommended that he use compression wraps and f/u with PCP. On 07/11/17 the pt followed up with his PCP. He was referred to PT wound care and given a prescription for Bactrim, he reports that he does not plan to fill this prescription d/t potential side effects. REHAB PROBLEM LIST: Open wound and edema of L) LE PREVIOUS MEDICAL HISTORY: Complex psychosocial history (see EMR for details), seizure disorder, previous wounds, cellulitis OBJECTIVE: Special Tests: Stemmer's test: negative L) LE Other Objective Findings: Wound measurements: L) posterior calf wound: 1 cm L x 1.5 cm W x 0.2 cm D L) posterior distal calf wound: 0.5 cm L x 0.5 cm W x 0.2 cm D Girth Measurements R) LE: Superior to malleoli: 27 cm Mid Calf: 40.5 cm L) LE: Superior to malleoli: 33.5 cm Mid Calf: 47.5 cm ASSESSMENT: Pt present with extensive edema of the L) LE with dried and flaking skin across entire distal LE. PT cleansed LE with gentle soap and majority of dried skin was removed to reveal underlying areas of excoriation and drainage. Moderate erythema present across distal LE. Posterior calf reveal 2 areas of necrosis, with dried eschar. PT removed this eschar to reveal underlying wounds with slough present across wound bases. PT completed conservative, selective debridement of non-viable tissue and slough with tweezers to the depth of the subcutaneous tissue. Wounds cleansed with sterile saline and entire LE treated with petroleum based moisture barrier cream. L) LE wrapped in retrograde fashion with coflex 2 layer compression wrap. Pt will benefit from skilled PT wound care to included sharps debridement as well as advanced wound care product application and compression therapy to facilitate wound healing and prevent further complications. Short Term Goals 1: Pt to maintain clean, dry and intact dressing between wound care visits 2: Wound to demonstrate 100% granulation tissue with no s/s of infection 3: Wound to demonstrate 100% epithelialization and complete closure 4: Pt to obtain appropriate compression garments prior to d/c Patient's Goals: No goals expressed PLAN: Patient to be seen for PT wound care to included sharps debridement as well as advanced wound care product application and compression therapy to facilitate wound healing and prevent further complications, 1-2x/week for up to 90 days Thank you for this referral. If you have any questions, comments, or concerns about this report or plan, please contact me at . Jing Sandra, PT, DPT MTDD
--- NOTE | 2017-08-12 15:52 | PT PLAN OF CARE ---
Physician: Dr. Bedoya Patient is being seen: Jorge Luis Mckeon Therapist: Jing Sandra, PT, DPT Medical Diagnosis: L) LE ulceration and edema Treatment Diagnosis: L) posterior calf venous stasis ulcer Date of Onset: Pt presented to ER on 07/01/17 with L) LE edema and wounds Date of Initial Evaluation: 07/15/17 Date patient was last seen: 07/22/17 Number of treatments: 2 Number of cancellations/No shows: 3 no shows INTERVENTIONS: Pt was seen for initial evaluation as well as second treatment session which included sharps debridement as well as advanced wound care product selection and application. Pt was non-compliant with use of antibiotics and therefore continued with untreated cellulitis of the L) LE d/t fear of seizures. This was reported to the pt's PCP, the patient no showed to next wound care appts. GOALS: -- not met 1: Pt to maintain clean, dry and intact dressing between wound care visits 2: Wound to demonstrate 100% granulation tissue with no s/s of infection 3: Wound to demonstrate 100% epithelialization and complete closure 4: Pt to obtain appropriate compression garments prior to d/c PATIENT'S GOAL: No goals expressed Patient Compliance: Poor Prognosis: Poor Reasons for continuing therapy: Pt was seen for last appointment on 07/22/17. At that time the patient presented with worsening cellulitis of the L) LE but refused to fill antibiotic prescription d/t fear of seizures. PT recommended that the patient f/u immediately with his PCP for further medical management. This PT discussed recommendation with Dr. Bedoya's RN, who reported that the patient never followed up in their clinic. The patient was a no show x3 weeks for wound care appts. and therefore is discharged per policy. [facility]
== END 2017-07-22 18:00 | disposition home or self-care (01) ==
LOC: PT 15:33
PROVIDERS: ATTEND Emergency Medicine
DX: L97.221 Non-pressure chronic ulcer of left calf limited to breakdown of skin (principal); L03.116 Cellulitis of left lower limb; I87.2 Venous insufficiency (chronic) (peripheral); R60.0 Localized edema; I83.029 Varicose veins of left lower extremity with ulcer of unspecified site
CPT/HCPCS: 97161

== ENCOUNTER 2017-08-09 01:30 | Emergency (ER) | payer MEDICARE, BC ==
[2016-04-05 09:57] VITALS: Wt 86.2 kg
--- NOTE | 2017-08-09 01:35 | ER Report ---
History and Physical Time Seen By MD: 01:35 HPI/ROS CHIEF COMPLAINT: leg pain and swelling, leg ulcers HISTORY OF PRESENT ILLNESS: This is a 31 year old male. He has swelling and statis ulcers of the left leg. These are lower leg from the ankle to midway up the leg. no wounds on the foot. He has pain, but has normal sensation. He denies having any fevers but states he has no thermometer to measure his temperature. Pain has been worsening. He says his doctor put him on an antibiotic, but he stopped it because all antibiotics cause seizures. He denies shortness of breath. He denies chest pain. Allergies: Coded Allergies: Penicillins (Verified Allergy, Severe, ANAPHYLAXIS, 08/09/17) phenobarbital (Verified Allergy, Unknown, 08/09/17) Reported by Patient but states he doesnt know what happens to him. Uncoded Allergies: VERY SENSITIVE TO ALL MEDICATIONS (Allergy, Mild, 06/02/11) Home Meds Discontinued Scripts Sulfamethoxazole/Trimet 800-160 Mg Tab (BACTRIM DS TABLET) 1 Each Tablet, 1 TAB PO Q12H, #20 TAB Prov:STEPHANIE FINK MD 07/13/17 Furosemide (FUROSEMIDE) 20 Mg Tablet, 1 TAB PO DAILY, #14 TAB Prov:STEPHANIE FINK MD 07/13/17 [Compression hose] No Conflict Check, 1 MISC Thigh high moderate compression hose for both legs Prov:STEPHANIE FINK MD 07/13/17 Reviewed Nurses Notes: Yes Hx Smoking: Yes Smoking Status: Former Smoker Exposure to Second Hand Smoke?: Yes Hx Substance Use Disorder: No (Patient reports drug problem 10 years ago) Hx Alcohol Use: Yes (1 LITER DAILY) Constitutional Vital Sign - Last 24 Hours 08/09/17 08/09/17 08/09/17 08/09/17 01:34 01:35 01:45 02:00 Temp 99.3 Pulse 63 69 59 Resp 16 B/P (MAP) 118/88 (98) 118/88 Pulse Ox 97 98 98 O2 Delivery Room Air 08/09/17 08/09/17 08/09/17 08/09/17 02:15 02:30 02:45 03:00 Pulse 63 61 B/P (MAP) 137/87 (104) 123/102 (109) Pulse Ox 100 99 100 08/09/17 03:00 B/P (MAP) 123/102 (109) Physical Exam General Appearance: The patient is alert, has no immediate need for airway protection and no current signs of toxicity. Eyes: Pupils equal and round no injection. ENT: Normal oral mucosa. Moist mucous membranes. Respiratory: Breathing easily, clear. Cardiac: regular rate and rhythm Musculoskeletal: Pain with palpation of the lower leg. Skin: erythema extending from the malleoli to the mid bang. Warmth associated with this. Weeping ulcers, some with crusting. DIFFERENTIAL DIAGNOSIS: After history and physical exam differential diagnosis was considered for lower leg swelling, ulcers and concern for DVT and cellulitis. Medical Decision Making Data Points Result Diagram: 08/09/17 0120 08/09/17 0120 Laboratory Hematology Test 08/09/17 01:20 Red Blood Count 4.25 M/uL (4.00-5.60) Mean Corpuscular Volume 103.6 fL (80.0-96.0) Mean Corpuscular Hemoglobin 35.8 pg (26.0-33.0) Mean Corpuscular Hemoglobin Concent 34.6 g/dL (32.0-36.0) Red Cell Distribution Width 14.5 % (11.5-14.5) Mean Platelet Volume 7.7 fL (7.2-11.1) Neutrophils (%) (Auto) 56.8 % (39.4-72.5) Lymphocytes (%) (Auto) 28.5 % (17.6-49.6) Monocytes (%) (Auto) 12.6 % (4.1-12.4) Eosinophils (%) (Auto) 1.9 % (0.4-6.7) Basophils (%) (Auto) 0.2 % (0.3-1.4) Nucleated RBC Relative Count (auto) 0.0 /100WBC Neutrophils # (Auto) 3.0 K/uL (2.0-7.4) Lymphocytes # (Auto) 1.5 K/uL (1.3-3.6) Monocytes # (Auto) 0.7 K/uL (0.3-1.0) Eosinophils # (Auto) 0.1 K/uL (0.0-0.5) Basophils # (Auto) 0.0 K/uL (0.0-0.1) Nucleated RBC Absolute Count (auto) 0.00 K/uL Peripheral Blood Smear No Y/N Erythrocyte Sedimentation Rate 21 mm/HOUR (0-15) Sodium Level 138 mmol/L (137-145) Potassium Level 3.9 mmol/L (3.5-5.0) Chloride Level 100 mmol/L (98-107) Carbon Dioxide Level 23 mmol/L (22-30) Blood Urea Nitrogen 9 mg/dl (9-21) Creatinine 0.80 mg/dl (0.66-1.25) Glomerular Filtration Rate Calc > 60.0 Random Glucose 102 mg/dl (75-110) Calcium Level 9.2 mg/dl (8.4-10.2) Total Bilirubin 0.8 mg/dl (0.2-1.3) Aspartate Amino Transf (AST/SGOT) 75 U/L (0-35) Alanine Aminotransferase (ALT/SGPT) 113 U/L (0-56) Alkaline Phosphatase 110 U/L (0-126) C-Reactive Protein 0.5 mg/dl (<1.0) Total Protein 8.0 gm/dl (6.3-8.2) Albumin 4.3 g/dl (3.5-5.0) Serum Alcohol < 10 mg/dl Chemistry Test 08/09/17 01:20 White Blood Count 5.3 k/uL (4.5-11.0) Red Blood Count 4.25 M/uL (4.00-5.60) Hemoglobin 15.2 g/dL (14.0-18.0) Hematocrit 44.0 % (42.0-52.0) Mean Corpuscular Volume 103.6 fL (80.0-96.0) Mean Corpuscular Hemoglobin 35.8 pg (26.0-33.0) Mean Corpuscular Hemoglobin Concent 34.6 g/dL (32.0-36.0) Red Cell Distribution Width 14.5 % (11.5-14.5) Platelet Count 195 K/uL (150-450) Mean Platelet Volume 7.7 fL (7.2-11.1) Neutrophils (%) (Auto) 56.8 % (39.4-72.5) Lymphocytes (%) (Auto) 28.5 % (17.6-49.6) Monocytes (%) (Auto) 12.6 % (4.1-12.4) Eosinophils (%) (Auto) 1.9 % (0.4-6.7) Basophils (%) (Auto) 0.2 % (0.3-1.4) Nucleated RBC Relative Count (auto) 0.0 /100WBC Neutrophils # (Auto) 3.0 K/uL (2.0-7.4) Lymphocytes # (Auto) 1.5 K/uL (1.3-3.6) Monocytes # (Auto) 0.7 K/uL (0.3-1.0) Eosinophils # (Auto) 0.1 K/uL (0.0-0.5) Basophils # (Auto) 0.0 K/uL (0.0-0.1) Nucleated RBC Absolute Count (auto) 0.00 K/uL Peripheral Blood Smear No Y/N Erythrocyte Sedimentation Rate 21 mm/HOUR (0-15) Glomerular Filtration Rate Calc > 60.0 Calcium Level 9.2 mg/dl (8.4-10.2) Total Bilirubin 0.8 mg/dl (0.2-1.3) Aspartate Amino Transf (AST/SGOT) 75 U/L (0-35) Alanine Aminotransferase (ALT/SGPT) 113 U/L (0-56) Alkaline Phosphatase 110 U/L (0-126) C-Reactive Protein 0.5 mg/dl (<1.0) Total Protein 8.0 gm/dl (6.3-8.2) Albumin 4.3 g/dl (3.5-5.0) Serum Alcohol < 10 mg/dl Toxicology Test 08/09/17 01:20 Serum Alcohol < 10 mg/dl ED Course/Re-evaluation ED Course The patient is upset that we did x-rays and jhon blood, saying that he feels that these things are dangerous and doing damage to him. He feels like they were done against his will. He is refusing the ultrasound as well. He keeps talking about his alcohol use, anxiety, and wondering about a medicine that he saw on Youtube that helps with anxiety. He does not want any medicines, especially antibiotics, as he will have seizures. He wants something for pain. He says that we call his house and do not leave a number to call back. I looked back in the records to see when he was seen last and has not seen Dr. Fink or the wound care clinic since mid June, about 1 month ago. I finally asked him what it was that we could do for him tonight. He wanted something to drink, he wanted something to eat, maybe something to decrease his pain, and for someone to change the date on the white board, which is incorrect and driving him crazy, and he would like this done immediately. We provided one dose of Lortab for pain, gave him something to eat and drink, changed the date on the white board and he said he can call the wound care clinic and Dr. Fink's office later today. I encouraged him to make sure to do this as he needs further help with his leg. He can also clean the leg and soak in Epsom salts. Decision to Disposition Date: Aug 09, 2017 Decision to Disposition Time: 03:20 Depart Departure Latest Vital Signs Vital Signs Date Time Temp Pulse Resp B/P (MAP) Pulse Ox O2 Delivery O2 Flow Rate FiO2 08/09/17 03:00 123/102 (109) 08/09/17 02:45 100 08/09/17 02:30 61 08/09/17 01:35 99.3 16 Room Air Impression: Primary Impression: Venous ulcer of left leg Condition: Improved Disposition: HOME OR SELF-CARE Referrals: STEPHANIE FINK MD (PCP) Patient Instructions: Stasis Dermatitis (ED) Additional Instructions: You have ulcers on the left leg from venous stasis and swelling. You need to see Dr. Fink for further treatment. Please call her office later today to schedule an appointment. You need to follow-up with the wound clinic for further treatment of your wounds. We feel like you are starting to get an infection in the leg and would recommend antibiotics. The only antibiotic allergy we have listed is to Penicillin. If you reconsider and want us to prescribe an antibiotic please let us know, otherwise discuss this with the wound care center or Dr. Fink. It is important that you follow-up this week otherwise you risk having further problems, worsening wounds, infection, and eventually losing your leg. CASSIA VERNON MD Aug 09, 2017 01:35
[2017-08-09 01:50] LABS: PLATELET COUNT, AUTOMATED 195 K/uL (150-450)
--- NOTE | 2017-08-09 02:53 | RADIOLOGY IMAGING REPORT ---
FACILITY: [facility] PATIENT NAME: Jorge Luis Mckeon : 1985 MR: [id number] V: [id number] EXAM DATE: ORDERING PHYSICIAN: CASSIA VERNON TECHNOLOGIST: Location: [facility] Patient: Jorge Luis Mckeon : 1985 Visit/Account:[id number] Date of Sevice: 08/09/2017 3 views left ankle Indication: Swelling, redness, and pain Comparison: None Available Findings: No evidence of fracture, dislocation, or acute osseous abnormality of the left ankle. The ankle mortise is symmetric. There is no significant ankle joint effusion. Soft tissue swelling surrounding the ankle. No evidence of radiopaque foreign body. IMPRESSION: 1. No acute osseous abnormality of the left ankle. 2. Nonspecific ankle soft tissue swelling. Report Dictated By: Quoc Santoro MD at 08/09/2017 2:47 AM Report E-Signed By: Quoc Santoro MD at 08/09/2017 2:48 AM WSN:[id number]
[2017-08-09 03:00] VITALS: BP 123/102
[2017-08-09] MEDS ORDERED: APAP/HYDROCODONE 325/5 TAB PO ONE (03:20)
--- NOTE | 2017-08-09 03:20 | RADIOLOGY IMAGING REPORT ---
FACILITY: [facility] - [place] PATIENT NAME: Jorge Luis Mckeon : 1985 MR: [id number] V: [id number] EXAM DATE: ORDERING PHYSICIAN: CASSIA VERNON TECHNOLOGIST: Location: [facility] Patient: Jorge Luis Mckeon : 1985 Visit/Account:[id number] Date of Sevice: 08/09/2017 FOOT 3 VIEW LEFT Indication: Swelling, redness, and pain Comparison: None Available Findings: 3 views of the left foot were obtained. No evidence of fracture, dislocation, or acute osseous abnormality of the left foot. Diffuse soft tissue swelling. No evidence of radiopaque foreign body. IMPRESSION: 1.No acute osseous abnormality of the left foot. 2. Diffuse soft tissue swelling Report Dictated By: Quoc Santoro MD at 08/09/2017 2:54 AM Report E-Signed By: Quoc Santoro MD at 08/09/2017 2:56 AM WSN:[id number]
[2017-08-09] MEDS ORDERED: EMS NS 0.9%(*) 1000 ML BAG 1,000 ML IV ONE (03:55)
== END 2017-08-09 03:40 | disposition home or self-care (01) ==
LOC: ER 01:34
DX: L97.929 Non-pressure chronic ulcer of unspecified part of left lower leg with unspecified severity (principal)
CPT/HCPCS: 36415; 73610; 73630; 85025; 85651; 86140; 87040; 96360; 96361; 99283; A9270; G0480; 80320; 82040; 82247; 82310; 82374; 82435; 82565; 82947; 84075; 84132; 84155; 84295; 84450; 84460; 84520

== ENCOUNTER → 2017-08-09 | Outpatient (CLI) | payer MEDICARE, BC ==
[2016-04-05 09:57] VITALS: BMI 23.1
== END ==
LOC: AMB 01:09
PROVIDERS: ATTEND Nurse Practitioner
DX: M79.662 Pain in left lower leg (principal); N48.89 Other specified disorders of penis; F10.20 Alcohol dependence, uncomplicated
CPT/HCPCS: A0425; A0427

== ENCOUNTER 2017-09-04 16:11 | Emergency (ER) | payer MEDICARE, BC ==
[2016-04-05 09:57] VITALS: Wt 90.7 kg
--- NOTE | 2017-09-04 16:30 | ER Report ---
History and Physical Time Seen By MD: 16:20 Hx. of Stated Complaint: pt had seizure, hx of seizure disorder, no injuries HPI/ROS CHIEF COMPLAINT: seizure HISTORY OF PRESENT ILLNESS: Pt brought in by ems due to having a seizure. PT was postictal on ems arrival and alert on ed arrival. Pt has hx of seizure d/o but states that they are decreasing in 2018 and has not had one in 4 weeks. Pt states that his left leg had an infection and his pcp placed him on abx but he stopped them because all medications cause him to have seizures. PT denies fevers. Pt denies any pain. Pt states he does not want to be in the emergency room or have any testing completed. Pt is asking to go home. REVIEW OF SYSTEMS: Constitutional: No fever, no chills. Eyes: No discharge. ENT: No sore throat. Cardiovascular: No chest pain, no palpitations. Respiratory: No cough, no shortness of breath. Gastrointestinal: No abdominal pain, no vomiting. Genitourinary: No hematuria. Musculoskeletal: No back pain. Skin: + erythema left leg improving per pt Neurological: No headache, + seizures Allergies: Coded Allergies: Penicillins (Verified Allergy, Severe, ANAPHYLAXIS, 09/04/17) phenobarbital (Verified Allergy, Unknown, 09/04/17) Reported by Patient but states he doesnt know what happens to him. Uncoded Allergies: VERY SENSITIVE TO ALL MEDICATIONS (Allergy, Mild, 06/02/11) Home Meds No Active Prescriptions or Reported Meds Past Medical/Surgical History Pmhx: alcoholism, anxiety d/o, behavioral do, left leg cellulitis Hx Smoking: Yes Smoking Status: Former Smoker Exposure to Second Hand Smoke?: Yes Hx Substance Use Disorder: No (Patient reports drug problem 10 years ago) Hx Alcohol Use: Yes (1 LITER DAILY) Constitutional Vital Sign - Last 24 Hours 09/04/17 16:11 Temp 98.8 Pulse 89 Resp 16 B/P (MAP) 115/77 Pulse Ox 90 O2 Delivery Room Air Physical Exam General Appearance: The patient is alert, has no immediate need for airway protection and no signs of toxicity. Eyes: Pupils equal and round no pallor or injection, EOMI ENT: no pharyngeal erythema or exudates, Mucous membranes are moist Respiratory: There are no retractions, lungs are clear to auscultation. Cardiovascular: Regular rate and rhythm. pulses are equal and symmetrical Gastrointestinal: Abdomen is soft and non tender, no masses, bowel sounds normal, no guarding, no rigidity or rebound Neurological: Cranial nerves II-XII grossly intact, no sensory or motor loss Skin: Warm and dry, no rashes. Musculoskeletal: Neck is supple non tender, no vertebral tenderness Extremities are nontender, + mild swelling to left lower extremity DIFFERENTIAL DIAGNOSIS: After history and physical exam differential diagnosis was considered for dvt, cellulitis, seiuzure disorder, psychosis Medical Decision Making ED Course/Re-evaluation ED Course Pts cellulitis is improved from prior visits per his nurse who saw him last month in the emergency department. Pt also states the leg is improving. Leg is still swollen compared to right but pt is refusing dvt studies/ultrasound or any lab work. PT asking to be d/c to home stating it was not his choice to come her today. Will dc to home. PT was told risk of worsning symptoms or but pt feels that testing and treatment will actually cause him to be sicker. Decision to Disposition Date: Sep 04, 2017 Decision to Disposition Time: 16:38 Depart Departure Latest Vital Signs Vital Signs Date Time Temp Pulse Resp B/P (MAP) Pulse Ox O2 Delivery O2 Flow Rate FiO2 09/04/17 16:11 98.8 89 16 115/77 90 Room Air Impression: Primary Impression: Seizure disorder Additional Impressions: Anxiety Left leg swelling Condition: Improved Disposition: HOME OR SELF-CARE Referrals: STEPHANIE FINK MD (PCP) 5 Days New Scripts No Active Prescriptions or Reported Meds Patient Instructions: Recurrent Seizures in Adults (DC) Additional Instructions: Follow up with your family doctor. Return to the emergency department if you decide you need further testing. Problem Qualifiers BINH TINOCO DO Sep 04, 2017 16:30
[2017-09-04 16:32] VITALS: BP 117/80
== END 2017-09-04 16:32 | disposition home or self-care (01) ==
LOC: ER 16:18
DX: G40.909 Epilepsy, unspecified, not intractable, without status epilepticus (principal); F41.9 Anxiety disorder, unspecified; M79.89 Other specified soft tissue disorders
CPT/HCPCS: 99282

== ENCOUNTER → 2017-09-04 | Outpatient (CLI) | payer MEDICARE, BC ==
[2016-04-05 09:57] VITALS: BMI 23.1
== END ==
LOC: AMB 15:43
PROVIDERS: ATTEND Nurse Practitioner
DX: G40.909 Epilepsy, unspecified, not intractable, without status epilepticus (principal); M79.89 Other specified soft tissue disorders; M79.605 Pain in left leg
CPT/HCPCS: A0425; A0429

== ENCOUNTER 2017-09-13 13:17 | Emergency (ER) | payer MEDICARE, BC ==
[2016-04-05 09:57] VITALS: Wt 72.6 kg
--- NOTE | 2017-09-13 13:39 | ER Report ---
History and Physical Time Seen By MD: 13:38 Hx. of Stated Complaint: Binge drinking fall laceration left upper arm HPI/ROS Patient is a 32-year-old male well known to the emergency room history of chronic alcoholism that she is currently been binge drinking and not eating or drinking correctly had a fall this morning 5 am in the bathroom broke the toilet laceration on his left shoulder from this Allergies: Coded Allergies: Penicillins (Verified Allergy, Severe, ANAPHYLAXIS, 09/13/17) Sulfa (Sulfonamide Antibiotics) (Verified Allergy, Unknown, 09/13/17) phenobarbital (Verified Allergy, Unknown, 09/13/17) Reported by Patient but states he doesnt know what happens to him. Uncoded Allergies: VERY SENSITIVE TO ALL MEDICATIONS (Allergy, Mild, 06/02/11) Home Meds No Active Prescriptions or Reported Meds Past Medical/Surgical History Chronic alcohol abuse, uncontrolled seizures, Hx Smoking: Yes Smoking Status: Former Smoker Exposure to Second Hand Smoke?: Yes Hx Substance Use Disorder: No (Patient reports drug problem 10 years ago) Hx Alcohol Use: Yes (1 LITER DAILY) Family History of: HTN Constitutional Vital Sign - Last 24 Hours 09/13/17 09/13/17 09/13/17 09/13/17 13:39 13:40 13:47 14:17 Temp 98.9 Pulse 102 99 99 Resp 20 B/P (MAP) 139/101 (114) 139/101 Pulse Ox 92 92 94 O2 Delivery Room Air 09/13/17 09/13/17 09/13/17 09/13/17 14:22 14:44 15:22 16:13 Pulse ??? 99 B/P (MAP) 134/105 (115) 104/71 (82) Pulse Ox 94 97 09/13/17 16:15 B/P (MAP) 109/72 (84) Intake and Output 09/13/17 09/13/17 09/14/17 15:00 23:00 07:00 Intake Total 1000 ml Balance 1000 ml Physical Exam 32 YEAR OLD MALE ALERT ORIENTED GCS 15, CHARLY TM NON REDDENED THROAT NON REDDENED , SMALL HEMATOMA OCCIPUT OF HEAD, MILD TENDERNESS WITH MOVEMENT OF NECK, HRR LUNGS CTA ABD SOG=FT, BUTLER LACERATION LEFT UPPER ARM 3 INCH NO ACTIVE BLEEDING Medical Decision Making Data Points Result Diagram: 09/13/17 1440 09/13/17 1612 Laboratory Hematology Test 09/13/17 14:40 09/13/17 16:12 Red Blood Count 3.87 M/uL (4.00-5.60) Mean Corpuscular Volume 102.9 fL (80.0-96.0) Mean Corpuscular Hemoglobin 35.8 pg (26.0-33.0) Mean Corpuscular Hemoglobin Concent 34.8 g/dL (32.0-36.0) Red Cell Distribution Width 14.4 % (11.5-14.5) Mean Platelet Volume 7.8 fL (7.2-11.1) Neutrophils (%) (Auto) 77.8 % (39.4-72.5) Lymphocytes (%) (Auto) 12.3 % (17.6-49.6) Monocytes (%) (Auto) 9.5 % (4.1-12.4) Eosinophils (%) (Auto) 0.2 % (0.4-6.7) Basophils (%) (Auto) 0.2 % (0.3-1.4) Nucleated RBC Relative Count (auto) 0.0 /100WBC Neutrophils # (Auto) 4.2 K/uL (2.0-7.4) Lymphocytes # (Auto) 0.7 K/uL (1.3-3.6) Monocytes # (Auto) 0.5 K/uL (0.3-1.0) Eosinophils # (Auto) 0.0 K/uL (0.0-0.5) Basophils # (Auto) 0.0 K/uL (0.0-0.1) Nucleated RBC Absolute Count (auto) 0.00 K/uL Peripheral Blood Smear No Y/N Magnesium Level 1.8 mg/dl (1.7-2.2) Total Bilirubin 1.6 mg/dl (0.2-1.3) Aspartate Amino Transf (AST/SGOT) 73 U/L (0-35) Alanine Aminotransferase (ALT/SGPT) 58 U/L (0-56) Alkaline Phosphatase 116 U/L (0-126) Total Protein 8.4 gm/dl (6.3-8.2) Albumin 4.5 g/dl (3.5-5.0) Sodium Level 138 mmol/L (137-145) Potassium Level 3.3 mmol/L (3.5-5.0) Chloride Level 101 mmol/L (98-107) Carbon Dioxide Level 21 mmol/L (22-30) Blood Urea Nitrogen 21 mg/dl (9-21) Creatinine 1.60 mg/dl (0.66-1.25) Glomerular Filtration Rate Calc 49.7 Random Glucose 125 mg/dl (75-110) Calcium Level 8.2 mg/dl (8.4-10.2) Chemistry Test 09/13/17 14:40 09/13/17 16:12 White Blood Count 5.4 k/uL (4.5-11.0) Red Blood Count 3.87 M/uL (4.00-5.60) Hemoglobin 13.8 g/dL (14.0-18.0) Hematocrit 39.8 % (42.0-52.0) Mean Corpuscular Volume 102.9 fL (80.0-96.0) Mean Corpuscular Hemoglobin 35.8 pg (26.0-33.0) Mean Corpuscular Hemoglobin Concent 34.8 g/dL (32.0-36.0) Red Cell Distribution Width 14.4 % (11.5-14.5) Platelet Count 157 K/uL (150-450) Mean Platelet Volume 7.8 fL (7.2-11.1) Neutrophils (%) (Auto) 77.8 % (39.4-72.5) Lymphocytes (%) (Auto) 12.3 % (17.6-49.6) Monocytes (%) (Auto) 9.5 % (4.1-12.4) Eosinophils (%) (Auto) 0.2 % (0.4-6.7) Basophils (%) (Auto) 0.2 % (0.3-1.4) Nucleated RBC Relative Count (auto) 0.0 /100WBC Neutrophils # (Auto) 4.2 K/uL (2.0-7.4) Lymphocytes # (Auto) 0.7 K/uL (1.3-3.6) Monocytes # (Auto) 0.5 K/uL (0.3-1.0) Eosinophils # (Auto) 0.0 K/uL (0.0-0.5) Basophils # (Auto) 0.0 K/uL (0.0-0.1) Nucleated RBC Absolute Count (auto) 0.00 K/uL Peripheral Blood Smear No Y/N Magnesium Level 1.8 mg/dl (1.7-2.2) Total Bilirubin 1.6 mg/dl (0.2-1.3) Aspartate Amino Transf (AST/SGOT) 73 U/L (0-35) Alanine Aminotransferase (ALT/SGPT) 58 U/L (0-56) Alkaline Phosphatase 116 U/L (0-126) Total Protein 8.4 gm/dl (6.3-8.2) Albumin 4.5 g/dl (3.5-5.0) Glomerular Filtration Rate Calc 49.7 Calcium Level 8.2 mg/dl (8.4-10.2) EKG/Imaging EKG Interpretation EKG at 1410 normal sinus rhythm ventricular rate 98 QTCs 451 ED Course/Re-evaluation ED Course Operative admission patient refusing to stay did give him 2 L of IV fluid in the emergency room recheck creatinine went from 1.9-1.6 talk to him about his drinking let him know that his liver enzymes are elevated because of this binge drinking and also he is very dehydrated today he states that he will consider my advice follow-up with primary care physician in 10 days for sutures out his left arm Re-evaluation Diagnosis uncontrolled seizures, laceration upper arm, contusion left arm, closed head injury, Procedure Procedure: Laceration repair. [Verbal consent was obtained from the patient.] The 3 inch laceration on the left shoulder was anesthetized in the usual fashion with 3 mL of 1% lidocaine without. The wound was with Betadine, draped and explored to its base with a gloved finger. [ ] There were no deep structures involved. No tendon injury was identified. The wound was repaired with 4-0 nylon 14 sutures. The wound repair was simple. The procedure was performed by myself. Decision to Disposition Date: Sep 13, 2017 Decision to Disposition Time: 18:44 Depart Departure Latest Vital Signs Vital Signs Date Time Temp Pulse Resp B/P (MAP) Pulse Ox O2 Delivery O2 Flow Rate FiO2 09/13/17 16:15 109/72 (84) 09/13/17 15:22 99 97 09/13/17 13:40 98.9 20 Room Air Impression: Primary Impression: Alcohol dependence Additional Impressions: Dehydration Alcohol consumption binge drinking Laceration Head injury Condition: Improved Disposition: HOME OR SELF-CARE Referrals: STEPHANIE FINK MD (PCP) 2 Days New Scripts No Active Prescriptions or Reported Meds Patient Instructions: Abuse of Alcohol (ED), Dehydration (ED), Head Injury (ED) , Laceration (ED) Additional Instructions: Sutures should shoulder out in 10 days clean it daily with mild soap and water cover with a Band-Aid, avoid alcohol do not drink alcohol, drink plenty of fluids see your doctor in 2 days to have labs redrawn Problem Qualifiers BENI GREENE Sep 13, 2017 13:39
[2017-09-13] MEDS ORDERED: NS(*) 0.9% 1000 ML BAG 1,000 ML IV ONE ×2 (14:05→15:40)
--- NOTE | 2017-09-13 14:23 | EKG ---
FACILITY[place] [facility] [place] PATIENT NAME: CONSUELO PERES : [id number] MR: [id number] V: [id number] EXAM DATE: ORDERING PHYSICIAN: BENI GREENE TECHNOLOGIST: ELIZABETH Pennington Reason : CHES PAIN Blood Pressure : / mmHG Vent. Rate : 098 BPM Atrial Rate : 098 BPM P-R Int : 114 ms QRS Dur : 082 ms QT Int : 354 ms P-R-T Axes : 019 046 031 degrees QTc Int : 451 ms Sinus rhythm Artifact in essentially every lead - repeat if needed When compared with ECG of 01-JUL-2017 14:34, No significant change was found Confirmed by BRIDGET PAGE ([id number] on 09/13/2017 5:11:20 PM Referred By: RAMONA Confirmed By:BRIDGET PAGE
--- NOTE | 2017-09-13 14:46 | RADIOLOGY IMAGING REPORT ---
FACILITY: [facility] PATIENT NAME: Jorge Luis Mckeon : 1985 MR: [id number] V: [id number] EXAM DATE: [id number] ORDERING PHYSICIAN: BENI GREENE TECHNOLOGIST: Location: [facility] Patient: Jorge Luis Mckeon : 1985 Visit/Account:[id number] Date of Sevice: 09/13/2017 INDICATION: fall. DATE: 09/13/2017 2:41 PM. TECHNIQUE: ELBOW 2 VIEW LEFT COMPARISON: None FINDINGS: Normal alignment. Mildly prominent anterior fat pad. The posterior fat pad is not visible. Soft tissues are swollen over the olecranon. IMPRESSION: Soft tissue swelling over the olecranon may reflect recent impact injury and/or bursitis. No fracture or dislocation. Report Dictated By: Timothy Morrow MD at 09/13/2017 2:41 PM Report E-Signed By: Timothy Morrow MD at 09/13/2017 2:42 PM WSN:[id number]
--- NOTE | 2017-09-13 15:00 | RADIOLOGY IMAGING REPORT ---
FACILITY: [facility] PATIENT NAME: Jorge Luis Mckeon : 1985 MR: [id number] V: [id number] EXAM DATE: [id number] ORDERING PHYSICIAN: BENI GREENE TECHNOLOGIST: Location: [facility] Patient: Jorge Luis Mckeon : 1985 Visit/Account:[id number] Date of Sevice: 09/13/2017 INDICATION: fall. DATE: 09/13/2017 2:52 PM. TECHNIQUE: HAND COMPLETE LEFT COMPARISON: April 18, 2017 FINDINGS: Normal alignment. No evidence of fracture or dislocation. IMPRESSION: Normal alignment without fracture or dislocation. Report Dictated By: Timothy Morrow MD at 09/13/2017 2:52 PM Report E-Signed By: Timothy Morrow MD at 09/13/2017 2:57 PM WSN:[id number]
--- NOTE | 2017-09-13 15:02 | RADIOLOGY IMAGING REPORT ---
FACILITY: [facility] PATIENT NAME: Jorge Luis Mckeon : 1985 MR: [id number] V: [id number] EXAM DATE: [id number] ORDERING PHYSICIAN: BENI GREENE TECHNOLOGIST: Location: [facility] Patient: Jorge Luis Mckeon : 1985 Visit/Account:[id number] Date of Sevice: 09/13/2017 Exam type: SHOULDER MIN 2 VIEWS LEFT History: fall Comparison: None. Findings: There is no acute fracture or dislocation of the left shoulder. AC joint aligns appropriately. Dege nerative changes are noted involving the distal clavicle. There is a healed left posterior 5th rib f racture unchanged from prior chest x-ray. IMPRESSION: 1. No acute fracture or dislocation of the left shoulder. Report Dictated By: Cody Hall MD at 09/13/2017 2:47 PM Report E-Signed By: Cody Hall MD at 09/13/2017 2:58 PM WSN:[email or web address]
[2017-09-13 15:03] LABS: PLATELET COUNT, AUTOMATED 157 K/uL (150-450)
--- NOTE | 2017-09-13 15:32 | RADIOLOGY IMAGING REPORT ---
FACILITY: PATIENT NAME: Jorge Luis Mckeon : 1985 MR: [id number] V: [id number] EXAM DATE: [id number] ORDERING PHYSICIAN: BENI GREENE TECHNOLOGIST: Location: [facility] Patient: Jorge Luis Mckeon : 1985 Visit/Account:[id number] Date of Sevice: 09/13/2017 CT Head without contrast and CT Cervical spine: Indication: Seizure. Fall hitting back of head. Comparison: 01/28/2017. Technique: CT head: Axial CT images were obtained through the brain from the skull base to the verte x without administration of IV contrast. Reformatted coronal and sagittal images were also obtained. Technique: CT cervical spine: Axial CT imaging of the cervical spine was performed. 2-D sagittal and coronal CT reformats were also obtained. One of the following dose optimization techniques was utilized in the performance of this exam: Autom ated exposure control; adjustment of the mA and/or kV according to the patient's size; or use of an i terative reconstruction technique. Specific details can be referenced in the facility's radiology C T exam operational policy. FINDINGS: CT head: No intracranial bleed, midline shift, mass effect, extra-axial fluid collection or hydrocephalus. No abnormal density. Bocanegra/white matter differentiation appears normal. Bony structures show no fractures or lesions. Small subcutaneous hematoma in the posterior scalp. Sinuses and mastoids visualized show no significant disease. Rightward deviation nasal septum. CT cervical spine: The vertebral bodies are aligned. No acute fracture or facet dislocation. No bony lesions. There is p rominent degenerative changes seen at the C7-T1 level with endplate changes, osteophytes and facet ar thropathy. There is mild superior endplate depression of T1 which is unchanged from 02/06/2016. No bony canal stenosis. No significant neural foramina narrowing. The endplates are maintained. No obvious d isc herniation. Prevertebral soft tissues and surrounding soft tissues unremarkable. Lung apices are clear. IMPRESSION: 1. No acute intracranial abnormality. 2. No acute osseous or acute alignment abnormality of the cervical spine. Report Dictated By: Cody Gan at 09/13/2017 3:17 PM Report E-Signed By: Cody Gan at 09/13/2017 3:28 PM WSN:[id number]
--- NOTE | 2017-09-13 15:32 | RADIOLOGY IMAGING REPORT ---
FACILITY: [facility] PATIENT NAME: Jorge Luis Mckeon : 1985 MR: [id number] V: [id number] EXAM DATE: [id number] ORDERING PHYSICIAN: BENI GREENE TECHNOLOGIST: Location: [facility] Patient: Jorge Luis Mckeon : 1985 Visit/Account:[id number] Date of Sevice: 09/13/2017 CT Head without contrast and CT Cervical spine: Indication: Seizure. Fall hitting back of head. Comparison: 01/28/2017. Technique: CT head: Axial CT images were obtained through the brain from the skull base to the verte x without administration of IV contrast. Reformatted coronal and sagittal images were also obtained. Technique: CT cervical spine: Axial CT imaging of the cervical spine was performed. 2-D sagittal and coronal CT reformats were also obtained. One of the following dose optimization techniques was utilized in the performance of this exam: Autom ated exposure control; adjustment of the mA and/or kV according to the patient's size; or use of an i terative reconstruction technique. Specific details can be referenced in the facility's radiology C T exam operational policy. FINDINGS: CT head: No intracranial bleed, midline shift, mass effect, extra-axial fluid collection or hydrocephalus. No abnormal density. Boc[place]egra/white matter differentiation appears normal. Bony structures show no fractures or lesions. Small subcutaneous hematoma in the posterior scalp. Sinuses and mastoids visualized show no significant disease. Rightward deviation nasal septum. CT cervical spine: The vertebral bodies are aligned. No acute fracture or facet dislocation. No bony lesions. There is p rominent degenerative changes seen at the C7-T1 level with endplate changes, osteophytes and facet ar thropathy. There is mild superior endplate depression of T1 which is unchanged from 02/06/2016. No bony canal stenosis. No significant neural foramina narrowing. The endplates are maintained. No obvious d isc herniation. Prevertebral soft tissues and surrounding soft tissues unremarkable. Lung apices are clear. IMPRESSION: 1. No acute intracranial abnormality. 2. No acute osseous or acute alignment abnormality of the cervical spine. Report Dictated By: Cody Gan at 09/13/2017 3:17 PM Report E-Signed By: Cody Gan at 09/13/2017 3:28 PM WSN:[id number]
[2017-09-13] MEDS ORDERED: THIAMINE HCL IV SCH (15:40)
[2017-09-13] MEDS ORDERED: [UNRECOGNIZED DRUG - OTHER] IV SCH (15:40)
[2017-09-13] MEDS ORDERED: FOLIC ACID IV SCH (15:40)
[2017-09-13] MEDS ORDERED: POTASSIUM CHL 20 MEQ TABCR PO ONE (18:40)
[2017-09-13 18:45] VITALS: BP 130/82
== END 2017-09-13 19:05 | disposition home or self-care (01) ==
LOC: ER 13:41
DX: S41.012A Laceration without foreign body of left shoulder, initial encounter (principal); E86.0 Dehydration; F10.20 Alcohol dependence, uncomplicated; S09.90XA Unspecified injury of head, initial encounter; W18.30XA Fall on same level, unspecified, initial encounter
CPT/HCPCS: 12002; 36415; 70450; 72125; 73030; 73070; 73130; 83735; 85025; 93005; 96361; 96365; 99284; A9270; J3411; J3475; J7030; 82040; 82247; 82310; 82374; 82435; 82565; 82947; 84075; 84132; 84155; 84295; 84450; 84460; 84520

== ENCOUNTER 2017-09-14 13:09 | Emergency (ER) | payer MEDICARE, BC ==
[2016-04-05 09:57] VITALS: Wt 72.6 kg
[2017-09-14 13:13] VITALS: BP 134/87
--- NOTE | 2017-09-14 13:14 | ER Report ---
History and Physical Time Seen By MD: 13:13 HPI/ROS Fell and hit head. Unsure whether or not he had a seizure. Can not get a good history from him. Last drank alcohol earlier this morning. No neck pain, no focal neuro deficits. Complians of laceration to forehead and left thumb Allergies: Coded Allergies: Penicillins (Verified Allergy, Severe, ANAPHYLAXIS, 09/14/17) Sulfa (Sulfonamide Antibiotics) (Verified Allergy, Unknown, 09/14/17) phenobarbital (Verified Allergy, Unknown, 09/14/17) Reported by Patient but states he doesnt know what happens to him. Uncoded Allergies: VERY SENSITIVE TO ALL MEDICATIONS (Allergy, Mild, 06/02/11) Home Meds No Active Prescriptions or Reported Meds Unable To Obtain Past Medical: Refused Reviewed Nurses Notes: Yes Old Medical Records Reviewed: Yes Hx Smoking: Yes Smoking Status: Former Smoker Exposure to Second Hand Smoke?: Yes Hx Substance Use Disorder: No (Patient reports drug problem 10 years ago) Hx Alcohol Use: Yes (1 LITER DAILY) Constitutional Vital Sign - Last 24 Hours 09/14/17 13:13 Temp 99.1 Pulse 96 Resp 14 B/P (MAP) 134/87 Pulse Ox 93 O2 Delivery Room Air Physical Exam GE: Alert and oriented in NAD HEENT: PERRL, 1.5cm linear laceration to left forehead CV: RRR no m/r/g Lungs: cta b/l Ex: .5 cm superficial laceration on left thumb, n/v/ in tact, no tendon involvement Medical Decision Making ED Course/Re-evaluation ED Course Seizure vs. mechanical fall. Pt. unsure and poor historian. No midline neck TTP , normal neuro exam. Forehead laceration cleaned and irrigated. Dermabond placed. thumb cleaned and band aide placed. Decision to Disposition Date: Sep 14, 2017 Decision to Disposition Time: 13:24 Depart Departure Latest Vital Signs Vital Signs Date Time Temp Pulse Resp B/P (MAP) Pulse Ox O2 Delivery O2 Flow Rate FiO2 09/14/17 13:13 99.1 96 14 134/87 93 Room Air Impression: Primary Impression: Laceration Condition: Improved Disposition: HOME OR SELF-CARE Referrals: STEPHANIE FINK MD (PCP) New Scripts No Active Prescriptions or Reported Meds Patient Instructions: Laceration (ED) GISSELLE GUILLERMO MD Sep 14, 2017 13:14
== END 2017-09-14 13:41 | disposition home or self-care (01) ==
LOC: ER 13:26
DX: S01.81XA Laceration without foreign body of other part of head, initial encounter (principal); S61.012A Laceration without foreign body of left thumb without damage to nail, initial encounter
CPT/HCPCS: 99282

== ENCOUNTER 2017-09-28 01:21 | Emergency (ER) | payer MEDICARE, BC ==
[2016-04-05 09:57] VITALS: Wt 72.6 kg
--- NOTE | 2017-09-28 01:27 | ER Report ---
History and Physical Time Seen By MD: 01:25 HPI/ROS CHIEF COMPLAINT: Chest pain HISTORY OF PRESENT ILLNESS: 32-year-old male brought in by EMS from home complaining of chest pain for 7 days. Patient states he did having chest pain since he has been sober. Patient has a history of alcohol dependence. He's been through multiple treatment plans and has failed. He does appear to be doing quite well today. He is the best that I seen him from many of his previous visits. Patient's also complaining of pain all over his body. Patient denies fever, chills or shortness of breath. Patient denies nausea or diaphoresis. Patient does have a history of left lower externally DVT with PE. REVIEW OF SYSTEMS: Respiratory: No cough, no dyspnea. Cardiovascular: As above Gastrointestinal: No vomiting, no abdominal pain. Musculoskeletal: No back pain. Allergies: Coded Allergies: Penicillins (Verified Allergy, Severe, ANAPHYLAXIS, 09/28/17) Sulfa (Sulfonamide Antibiotics) (Verified Allergy, Unknown, 09/28/17) phenobarbital (Verified Allergy, Unknown, 09/28/17) Reported by Patient but states he doesnt know what happens to him. Uncoded Allergies: VERY SENSITIVE TO ALL MEDICATIONS (Allergy, Mild, 06/02/11) Home Meds No Active Prescriptions or Reported Meds Past Medical/Surgical History Past Medical History Neurologic: Reports hx of: seizures Cardiovascular: Reports hx of: DVT Musculoskeletal: Reports hx of: other musculoskeletal hx (dislocated shoulder) Psychiatric: Reports hx of: anxiety other psychiatric history (Asperger's syndrome) Reviewed Nurses Notes: Yes Old Medical Records Reviewed: Yes Hx Smoking: Yes Smoking Status: Former Smoker Exposure to Second Hand Smoke?: Yes Hx Substance Use Disorder: No (Patient reports drug problem 10 years ago) Hx Alcohol Use: Yes (1 LITER DAILY) Constitutional Vital Sign - Last 24 Hours 09/28/17 09/28/17 09/28/17 09/28/17 01:26 01:27 01:30 01:36 Temp 98.9 Pulse 60 60 Resp 16 13 B/P (MAP) 109/83 (92) 109/83 113/75 (88) Pulse Ox 96 95 O2 Delivery Room Air 09/28/17 09/28/17 09/28/17 09/28/17 01:51 01:56 02:00 02:11 Pulse 55 60 55 Resp 22 12 18 B/P (MAP) 115/83 (94) Pulse Ox 96 96 95 09/28/17 09/28/17 09/28/17 02:26 02:30 02:41 Pulse 58 Resp 18 18 B/P (MAP) 118/79 (92) Pulse Ox 95 96 Physical Exam General Appearance: The patient is alert, has no immediate need for airway protection and no current signs of toxicity. HEENT: Pupils equal and round no injection. Oropharynx without redness or exudate, mucous. Membranes are moist Respiratory: Chest is non tender, lungs are clear to auscultation. No chest wall tenderness Cardiac: regular rate and rhythm Gastrointestinal: Abdomen is soft and non tender, no masses, bowel sounds normal. Musculoskeletal: Neck: Neck is supple and non tender. Extremities have full range of motion and are non tender. Chronic edema of the left lower extremity, stasis dermatitis noted. The legs appearance is much improved over his previous presentations Skin: No rashes or lesions. DIFFERENTIAL DIAGNOSIS: After history and physical exam differential diagnosis was considered for chest pain including but not limited to myocardial ischemia, pericarditis pulmonary embolus, chest wall pain, pleural inflammation and pulmonary infectious causes. Medical Decision Making Data Points Result Diagram: 09/28/17 0150 09/28/17 0150 Laboratory Hematology Test 09/28/17 01:50 Red Blood Count 3.72 M/uL (4.00-5.60) Mean Corpuscular Volume 102.2 fL (80.0-96.0) Mean Corpuscular Hemoglobin 35.8 pg (26.0-33.0) Mean Corpuscular Hemoglobin Concent 35.0 g/dL (32.0-36.0) Red Cell Distribution Width 14.3 % (11.5-14.5) Mean Platelet Volume 7.4 fL (7.2-11.1) Neutrophils (%) (Auto) 52.2 % (39.4-72.5) Lymphocytes (%) (Auto) 36.2 % (17.6-49.6) Monocytes (%) (Auto) 8.3 % (4.1-12.4) Eosinophils (%) (Auto) 2.3 % (0.4-6.7) Basophils (%) (Auto) 1.0 % (0.3-1.4) Nucleated RBC Relative Count (auto) 0.0 /100WBC Neutrophils # (Auto) 2.3 K/uL (2.0-7.4) Lymphocytes # (Auto) 1.6 K/uL (1.3-3.6) Monocytes # (Auto) 0.4 K/uL (0.3-1.0) Eosinophils # (Auto) 0.1 K/uL (0.0-0.5) Basophils # (Auto) 0.0 K/uL (0.0-0.1) Nucleated RBC Absolute Count (auto) 0.00 K/uL Peripheral Blood Smear No Y/N Sodium Level 137 mmol/L (137-145) Potassium Level 4.1 mmol/L (3.5-5.0) Chloride Level 100 mmol/L (98-107) Carbon Dioxide Level 27 mmol/L (22-30) Blood Urea Nitrogen 9 mg/dl (9-21) Creatinine 1.00 mg/dl (0.66-1.25) Glomerular Filtration Rate Calc > 60.0 Random Glucose 86 mg/dl (75-110) Calcium Level 9.0 mg/dl (8.4-10.2) Total Bilirubin 0.4 mg/dl (0.2-1.3) Aspartate Amino Transf (AST/SGOT) 42 U/L (0-35) Alanine Aminotransferase (ALT/SGPT) 65 U/L (0-56) Alkaline Phosphatase 107 U/L (0-126) Troponin I < 0.012 ng/ml Total Protein 7.1 gm/dl (6.3-8.2) Albumin 3.7 g/dl (3.5-5.0) Chemistry Test 09/28/17 01:50 White Blood Count 4.4 k/uL (4.5-11.0) Red Blood Count 3.72 M/uL (4.00-5.60) Hemoglobin 13.3 g/dL (14.0-18.0) Hematocrit 38.0 % (42.0-52.0) Mean Corpuscular Volume 102.2 fL (80.0-96.0) Mean Corpuscular Hemoglobin 35.8 pg (26.0-33.0) Mean Corpuscular Hemoglobin Concent 35.0 g/dL (32.0-36.0) Red Cell Distribution Width 14.3 % (11.5-14.5) Platelet Count 248 K/uL (150-450) Mean Platelet Volume 7.4 fL (7.2-11.1) Neutrophils (%) (Auto) 52.2 % (39.4-72.5) Lymphocytes (%) (Auto) 36.2 % (17.6-49.6) Monocytes (%) (Auto) 8.3 % (4.1-12.4) Eosinophils (%) (Auto) 2.3 % (0.4-6.7) Basophils (%) (Auto) 1.0 % (0.3-1.4) Nucleated RBC Relative Count (auto) 0.0 /100WBC Neutrophils # (Auto) 2.3 K/uL (2.0-7.4) Lymphocytes # (Auto) 1.6 K/uL (1.3-3.6) Monocytes # (Auto) 0.4 K/uL (0.3-1.0) Eosinophils # (Auto) 0.1 K/uL (0.0-0.5) Basophils # (Auto) 0.0 K/uL (0.0-0.1) Nucleated RBC Absolute Count (auto) 0.00 K/uL Peripheral Blood Smear No Y/N Glomerular Filtration Rate Calc > 60.0 Calcium Level 9.0 mg/dl (8.4-10.2) Total Bilirubin 0.4 mg/dl (0.2-1.3) Aspartate Amino Transf (AST/SGOT) 42 U/L (0-35) Alanine Aminotransferase (ALT/SGPT) 65 U/L (0-56) Alkaline Phosphatase 107 U/L (0-126) Troponin I < 0.012 ng/ml Total Protein 7.1 gm/dl (6.3-8.2) Albumin 3.7 g/dl (3.5-5.0) EKG/Imaging EKG Interpretation 12 lead EK Rhythm: Sinus bradycardia, rate 52 bpm [place]: normal QRS: normal ST segments: normal, no evidence of ischemia or dysrhythmia Imaging X-ray: Two-view chest x-ray was obtained. I viewed the images myself on the PACS system. My interpretation of the images is: No infiltrate, no effusion, normal mediastinum. The radiologist interpretation had no clinically significant variation from this interpretation. ED Course/Re-evaluation ED Course Patient was admitted to an examination room. H&P was done. The differential diagnoses was considered. On clinical examination. Patient has no findings discomfort on examination. He has no clinical findings of acute [place]. Patient does have chronic edema of the left lower extremity. He's had multiple CT pulmonary angiograms. Patient states she's been sober for 7 days. He does appear sober at this time. Diagnostic evaluation is unremarkable. His EKG is unremarkable. His chest x-ray is unremarkable. Patient advised to follow-up with his primary care if his chest pain continues. I suspect his pain is myofascial in nature. Suspect is body pain is related to his discontinuing of his alcohol. Decision to Disposition Date: September 28, 2017 Decision to Disposition Time: 02:24 Depart Departure Latest Vital Signs Vital Signs Date Time Temp Pulse Resp B/P (MAP) Pulse Ox O2 Delivery O2 Flow Rate FiO2 09/28/17 02:41 18 96 09/28/17 02:30 118/79 (92) 09/28/17 02:26 58 09/28/17 01:27 98.9 Room Air Impression: Primary Impression: Chest pain Additional Impressions: Total body pain History of seizures History of alcohol dependence Condition: Improved Disposition: HOME OR SELF-CARE Referrals: STEPHANIE FINK MD (PCP) New Scripts No Active Prescriptions or Reported Meds Patient Instructions: Chest Pain (ED) Additional Instructions: Follow-up with your primary care doctor in 3-5 days if unimproved Problem Qualifiers Primary Impression: Chest pain Chest pain type: unspecified Qualified Codes: R07.9 - Chest pain, unspecified KELLI LIU DO September 28, 2017 01:27
[2017-09-28 02:12] LABS: PLATELET COUNT, AUTOMATED 248 K/uL (150-450)
--- NOTE | 2017-09-28 02:20 | RADIOLOGY IMAGING REPORT ---
FACILITY: [facility] PATIENT NAME: Jorge Luis Mckeon : 1985 MR: [id number] V: [id number] EXAM DATE: ORDERING PHYSICIAN: KELLI LIU TECHNOLOGIST: Location: [facility] Patient: Jorge Luis Mckeon : 1985 Visit/Account:[id number] Date of Sevice: 09/28/2017 PORTABLE CHEST: Indication: Chest pain. Technique: A single frontal film was obtained. Comparison: 07/01/2017 Skeletal and soft tissue structures: Intact and unremarkable. Heart and mediastinum: Within normal limits. Lung de la torre: Well-expanded and clear. No focal or diffuse opacities. Pleural spaces: Unremarkable. Impression: No acute process or significant change. Report Dictated By: Stanford Baxter MD at 09/28/2017 2:13 AM Report E-Signed By: Stanford Baxter MD at 09/28/2017 2:16 AM WSN:[id number]
[2017-09-28 02:30] VITALS: BP 118/79
--- NOTE | 2017-09-28 04:56 | EKG ---
FACILITY: [facility] PATIENT NAME: CONSUELO PERES : [id number] MR: [id number] V: [id number] EXAM DATE: ORDERING PHYSICIAN: KELLI LIU TECHNOLOGIST: NEISHA Test Reason : CP Blood Pressure : / mmHG Vent. Rate : 052 BPM Atrial Rate : 052 BPM P-R Int : 146 ms QRS Dur : 082 ms QT Int : 416 ms P-R-T Axes : 053 066 043 degrees QTc Int : 386 ms Sinus bradycardia Otherwise normal ECG When compared with ECG of 13-SEP-2017 14:10, Relatively unchanged Confirmed by RENATE HUNT ([id number]) on 09/28/2017 6:46:22 AM Referred By: Confirmed By:RENATE HUNT
== END 2017-09-28 02:48 | disposition home or self-care (01) ==
LOC: ER 01:29
DX: R07.89 Other chest pain (principal); F10.21 Alcohol dependence, in remission
CPT/HCPCS: 36415; 71045; 82040; 82247; 82310; 82374; 82435; 82565; 82947; 84075; 84132; 84155; 84295; 84450; 84460; 84484; 84520; 85025; 93005; 99284

== ENCOUNTER → 2017-09-28 | Outpatient (CLI) | payer MEDICARE, BC ==
[2016-04-05 09:57] VITALS: BMI 23.1
== END ==
LOC: AMB 01:10
PROVIDERS: ATTEND Nurse Practitioner
DX: F10.239 Alcohol dependence with withdrawal, unspecified (principal); R06.00 Dyspnea, unspecified; R60.0 Localized edema; G40.909 Epilepsy, unspecified, not intractable, without status epilepticus
CPT/HCPCS: A0425; A0429

== ENCOUNTER 2017-11-28 12:27 | Emergency (ER) | payer MEDICARE, BC ==
[2016-04-05 09:57] VITALS: Wt 99.8 kg
--- NOTE | 2017-11-28 12:35 | ER Report ---
History and Physical Time Seen By MD: 12:35 Hx. of Stated Complaint: seizure HPI/ROS 32 year old with known seizures. alcohol abuse in the past . noncompliant with treatment, had a seizure today. fell down 2 stairs. abrasion left side of face, arrived pre ems with soft c-collar in place Allergies: Coded Allergies: Penicillins (Verified Allergy, Severe, ANAPHYLAXIS, 09/28/17) Sulfa (Sulfonamide Antibiotics) (Verified Allergy, Unknown, 09/28/17) phenobarbital (Verified Allergy, Unknown, 09/28/17) Reported by Patient but states he doesnt know what happens to him. Uncoded Allergies: VERY SENSITIVE TO ALL MEDICATIONS (Allergy, Mild, 06/02/11) Home Meds No Active Prescriptions or Reported Meds Past Medical/Surgical History seizures, Asperger , alcohol abuse Hx Smoking: Yes Smoking Status: Former Smoker Exposure to Second Hand Smoke?: Yes Hx Substance Use Disorder: No (Patient reports drug problem 10 years ago) Hx Alcohol Use: Yes (1 LITER DAILY) Constitutional Vital Sign - Last 24 Hours 11/28/17 11/28/17 11/28/17 11/28/17 12:33 12:34 12:45 13:15 Pulse 78 77 75 Resp 16 19 B/P (MAP) 114/76 (89) 114/76 Pulse Ox 90 91 91 O2 Delivery Room Air 11/28/17 11/28/17 11/28/17 11/28/17 13:30 13:45 14:00 14:16 Pulse 62 64 58 B/P (MAP) 110/75 (87) 107/71 (83) 111/92 (98) Pulse Ox 92 95 92 Intake and Output 11/28/17 11/28/17 11/29/17 15:00 23:00 07:00 Output Total 30 ml Balance -30 ml Physical Exam 32 year old male alert nad, sandy gcs 15, abrasion to left side of face . wears c collar. mild pain right side of neck, hrr lungs cta and soft. [place] . cn intact 2-12 Medical Decision Making Data Points Result Diagram: 11/28/17 1225 11/28/17 1225 Laboratory Hematology Test 11/28/17 00:00 11/28/17 12:25 Urine Color Straw Urine Clarity Clear Urine pH 7.0 pH (4.8-9.5) Urine Specific [place] 1.006 Urine Protein Negative mg/dL (NEGATIVE) Urine Glucose (UA) Negative mg/dL (NEGATIVE) Urine Ketones Negative mg/dL (NEGATIVE) Urine Blood Negative (NEGATIVE) Urine Nitrite Negative (NEGATIVE) Urine Bilirubin Negative (NEGATIVE) Urine Urobilinogen Negative mg/dL (0.2-1.9) Urine Leukocyte Esterase Negative (NEGATIVE) Urine RBC <1 /HPF (0-2/HPF) Urine WBC <1 /HPF (0-5/HPF) Urine Squamous Epithelial Cells None /LPF (NONE-FEW) Urine Bacteria Negative /HPF (NONE-FEW) Urine Mucus None /HPF (NONE-FEW) Urine Opiates Screen Negative Urine Barbiturates Screen Negative Ur Tricyclic Antidepressants Screen Negative Urine Phencyclidine Screen Negative Urine Amphetamines Screen Negative Urine Benzodiazepines Screen Negative Urine Cocaine Screen Negative Urine Cannabinoids Screen Negative Red Blood Count 4.55 M/uL (4.00-5.60) Mean Corpuscular Volume 98.0 fL (80.0-96.0) Mean Corpuscular Hemoglobin 33.6 pg (26.0-33.0) Mean Corpuscular Hemoglobin Concent 34.3 g/dL (32.0-36.0) Red Cell Distribution Width 13.2 % (11.5-14.5) Mean Platelet Volume 7.3 fL (7.2-11.1) Neutrophils (%) (Auto) 51.4 % (39.4-72.5) Lymphocytes (%) (Auto) 38.4 % (17.6-49.6) Monocytes (%) (Auto) 8.0 % (4.1-12.4) Eosinophils (%) (Auto) 1.7 % (0.4-6.7) Basophils (%) (Auto) 0.5 % (0.3-1.4) Nucleated RBC Relative Count (auto) 0.1 /100WBC Neutrophils # (Auto) 2.4 K/uL (2.0-7.4) Lymphocytes # (Auto) 1.8 K/uL (1.3-3.6) Monocytes # (Auto) 0.4 K/uL (0.3-1.0) Eosinophils # (Auto) 0.1 K/uL (0.0-0.5) Basophils # (Auto) 0.0 K/uL (0.0-0.1) Nucleated RBC Absolute Count (auto) 0.00 K/uL Sodium Level 138 mmol/L (137-145) Potassium Level 3.8 mmol/L (3.5-5.0) Chloride Level 105 mmol/L (98-107) Carbon Dioxide Level 24 mmol/L (22-30) Blood Urea Nitrogen 10 mg/dl (9-21) Creatinine 0.80 mg/dl (0.66-1.25) Glomerular Filtration Rate Calc > 60.0 Random Glucose 98 mg/dl (75-110) Calcium Level 8.9 mg/dl (8.4-10.2) Magnesium Level 1.9 mg/dl (1.7-2.2) Total Bilirubin 0.7 mg/dl (0.2-1.3) Aspartate Amino Transf (AST/SGOT) 29 U/L (0-35) Alanine Aminotransferase (ALT/SGPT) 37 U/L (0-56) Alkaline Phosphatase 80 U/L (0-126) Total Protein 7.3 g/dl (6.3-8.2) Albumin 4.0 g/dl (3.5-5.0) Serum Alcohol < 10 mg/dl Chemistry Test 11/28/17 00:00 11/28/17 12:25 Urine Color Straw Urine Clarity Clear Urine pH 7.0 pH (4.8-9.5) Urine Specific [place] 1.006 Urine Protein Negative mg/dL (NEGATIVE) Urine Glucose (UA) Negative mg/dL (NEGATIVE) Urine Ketones Negative mg/dL (NEGATIVE) Urine Blood Negative (NEGATIVE) Urine Nitrite Negative (NEGATIVE) Urine Bilirubin Negative (NEGATIVE) Urine Urobilinogen Negative mg/dL (0.2-1.9) Urine Leukocyte Esterase Negative (NEGATIVE) Urine RBC <1 /HPF (0-2/HPF) Urine WBC <1 /HPF (0-5/HPF) Urine Squamous Epithelial Cells None /LPF (NONE-FEW) Urine Bacteria Negative /HPF (NONE-FEW) Urine Mucus None /HPF (NONE-FEW) Urine Opiates Screen Negative Urine Barbiturates Screen Negative Ur Tricyclic Antidepressants Screen Negative Urine Phencyclidine Screen Negative Urine Amphetamines Screen Negative Urine Benzodiazepines Screen Negative Urine Cocaine Screen Negative Urine Cannabinoids Screen Negative White Blood Count 4.6 k/uL (4.5-11.0) Red Blood Count 4.55 M/uL (4.00-5.60) Hemoglobin 15.3 g/dL (14.0-18.0) Hematocrit 44.6 % (42.0-52.0) Mean Corpuscular Volume 98.0 fL (80.0-96.0) Mean Corpuscular Hemoglobin 33.6 pg (26.0-33.0) Mean Corpuscular Hemoglobin Concent 34.3 g/dL (32.0-36.0) Red Cell Distribution Width 13.2 % (11.5-14.5) Platelet Count 263 K/uL (150-450) Mean Platelet Volume 7.3 fL (7.2-11.1) Neutrophils (%) (Auto) 51.4 % (39.4-72.5) Lymphocytes (%) (Auto) 38.4 % (17.6-49.6) Monocytes (%) (Auto) 8.0 % (4.1-12.4) Eosinophils (%) (Auto) 1.7 % (0.4-6.7) Basophils (%) (Auto) 0.5 % (0.3-1.4) Nucleated RBC Relative Count (auto) 0.1 /100WBC Neutrophils # (Auto) 2.4 K/uL (2.0-7.4) Lymphocytes # (Auto) 1.8 K/uL (1.3-3.6) Monocytes # (Auto) 0.4 K/uL (0.3-1.0) Eosinophils # (Auto) 0.1 K/uL (0.0-0.5) Basophils # (Auto) 0.0 K/uL (0.0-0.1) Nucleated RBC Absolute Count (auto) 0.00 K/uL Glomerular Filtration Rate Calc > 60.0 Calcium Level 8.9 mg/dl (8.4-10.2) Magnesium Level 1.9 mg/dl (1.7-2.2) Total Bilirubin 0.7 mg/dl (0.2-1.3) Aspartate Amino Transf (AST/SGOT) 29 U/L (0-35) Alanine Aminotransferase (ALT/SGPT) 37 U/L (0-56) Alkaline Phosphatase 80 U/L (0-126) Total Protein 7.3 g/dl (6.3-8.2) Albumin 4.0 g/dl (3.5-5.0) Serum Alcohol < 10 mg/dl Toxicology Test 11/28/17 00:00 11/28/17 12:25 Urine Opiates Screen Negative Urine Barbiturates Screen Negative Ur Tricyclic Antidepressants Screen Negative Urine Phencyclidine Screen Negative Urine Amphetamines Screen Negative Urine Benzodiazepines Screen Negative Urine Cocaine Screen Negative Urine Cannabinoids Screen Negative Serum Alcohol < 10 mg/dl Urinalysis Test 11/28/17 00:00 Urine Color Straw Urine Clarity Clear Urine pH 7.0 pH (4.8-9.5) Urine Specific [place] 1.006 Urine Protein Negative mg/dL (NEGATIVE) Urine Glucose (UA) Negative mg/dL (NEGATIVE) Urine Ketones Negative mg/dL (NEGATIVE) Urine Blood Negative (NEGATIVE) Urine Nitrite Negative (NEGATIVE) Urine Bilirubin Negative (NEGATIVE) Urine Urobilinogen Negative mg/dL (0.2-1.9) Urine Leukocyte Esterase Negative (NEGATIVE) Urine RBC <1 /HPF (0-2/HPF) Urine WBC <1 /HPF (0-5/HPF) Urine Squamous Epithelial Cells None /LPF (NONE-FEW) Urine Bacteria Negative /HPF (NONE-FEW) Urine Mucus None /HPF (NONE-FEW) ED Course/Re-evaluation Clinical Indication for ER IV: Hydration ED Course Lab work and CT scans are both negative patient feels better after IV fluids was given a half a milligram Ativan IV in the emergency room no further seizure activity noted will go home follow-up with primary care physician Re-evaluation Seizure abrasion left side of face. tetanus utd, wound cleaned in er Decision to Disposition Date: Nov 28, 2017 Decision to Disposition Time: 14:01 Depart Departure Latest Vital Signs Vital Signs Date Time Temp Pulse Resp B/P (MAP) Pulse Ox O2 Delivery O2 Flow Rate FiO2 11/28/17 14:16 111/92 (98) 11/28/17 14:00 58 92 11/28/17 12:45 19 11/28/17 12:34 Room Air Impression: Primary Impression: Head injury Additional Impressions: Seizure Facial abrasion Condition: Improved Disposition: HOME OR SELF-CARE Referrals: STEPHANIE FINK MD (PCP) 5 Days New Scripts No Active Prescriptions or Reported Meds Patient Instructions: Abuse of Alcohol (ED), Recurrent Seizures in Adults (DC) Additional Instructions: See your doctor for follow-up Problem Qualifiers BENI GREENE Nov 28, 2017 12:35
[2017-11-28] MEDS ORDERED: NS(*) 0.9% 1000 ML BAG 1,000 ML IV ONE (12:37)
[2017-11-28] MEDS ORDERED: LORazepam 2 MG/ML VIAL IVP ONE (12:40)
[2017-11-28 12:47] LABS: PLATELET COUNT, AUTOMATED 263 K/uL (150-450)
--- NOTE | 2017-11-28 13:42 | RADIOLOGY IMAGING REPORT ---
FACILITY: [facility] PATIENT NAME: Jorge Luis Mckeon : 1985 MR: [id number] V: [id number] EXAM DATE: ORDERING PHYSICIAN: BENI GREENE TECHNOLOGIST: Location: [facility] - [place] Patient: Jorge Luis Mckeon : 1985 Visit/Account:[id number] Date of Sevice: 11/28/2017 HEAD W/O CONTRAST, C-SPINE W/O CONTRAST Provided history: SEIZURE Additional pertinent history: none TECHNIQUE: Imaging was obtained from the skull base through the vertex, followed by spiral scan of th e cervical spine without intravenous contrast. Source images were reformatted in the coronal sagitta l planes. The cervical spine spiral source images were reformatted in the coronal and sagittal planes. One of the following dose optimization techniques was utilized in the performance of this exam: Autom ated exposure control; adjustment of the mA and/or kV according to the patient's size; or use of an i terative reconstruction technique. Specific details can be referenced in the facility's radiology CT exam operational policy. COMPARISON STUDIES: 09/13/17 FINDINGS: BRAIN: Brain volume: Normal cerebral volume. Cerebellar volume is mildly decreased but unchanged from prior perhaps related to antiepileptic medication. Acute cortical ischemia: None Chronic cortical and ganglionic ischemia: none significant Hemorrhage: None Masses / edema: None White matter: Normal Vessels: Normal Extra-axial: None significant Calvarium / scalp: Negative Skull base: negative Visualized sinuses / orbits: negative CERVICAL SPINE: Extra-vertebral soft tissues: negative Acute bone and soft tissue findings: none Chronic / degenerative findings: Moderate invagination upper endplate of T1 and large bridging preve rtebral spurs unchanged from prior and is likely a sequela of old injury. There is no significant foraminal or central stenosis any level. A large osteochondral defect noted in the lateralizing to the left mandibular condylar head, unchange d from prior. IMPRESSION: 1. Stable volume loss in the cerebellum. Otherwise normal CT of the brain. No evidence of mass, acut e ischemia or hemorrhage. 2. Stable chronic changes of the cervical spine and left TMJ. No acute bone or joint abnormality. Report Dictated By: Stanford Bass MD at 11/28/2017 1:33 PM Report E-Signed By: Stanford Bass MD at 11/28/2017 1:38 PM WSN:[id number]
--- NOTE | 2017-11-28 13:42 | RADIOLOGY IMAGING REPORT ---
FACILITY: [facility] PATIENT NAME: Jorge Luis Mckeon : 1985 MR: [id number] V: [id number] EXAM DATE: ORDERING PHYSICIAN: BENI GREENE TECHNOLOGIST: [place] [facility] [place] Jorge Luis Mckeon : 1985 Visit/Account:[id number] Date of Sevice: 11/28/2017 HEAD W/O CONTRAST, C-SPINE W/O CONTRAST Provided history: SEIZURE Additional pertinent history: none TECHNIQUE: Imaging was obtained from the skull base through the vertex, followed by spiral scan of th e cervical spine without intravenous contrast. Source images were reformatted in the coronal sagitta l planes. The cervical spine spiral source images were reformatted in the coronal and sagittal planes. One of the following dose optimization techniques was utilized in the performance of this exam: Autom ated exposure control; adjustment of the mA and/or kV according to the patient's size; or use of an i terative reconstruction technique. Specific details can be referenced in the facility's radiology CT exam operational policy. COMPARISON STUDIES: 09/13/17 FINDINGS: BRAIN: Brain volume: Normal cerebral volume. Cerebellar volume is mildly decreased but unchanged from prior perhaps related to antiepileptic medication. Acute cortical ischemia: None Chronic cortical and ganglionic ischemia: none significant Hemorrhage: None Masses / edema: None White matter: Normal Vessels: Normal Extra-axial: None significant Calvarium / scalp: Negative Skull base: negative Visualized sinuses / orbits: negative CERVICAL SPINE: Extra-vertebral soft tissues: negative Acute bone and soft tissue findings: none Chronic / degenerative findings: Moderate invagination upper endplate of T1 and large bridging preve rtebral spurs unchanged from prior and is likely a sequela of old injury. There is no significant foraminal or central stenosis any level. A large osteochondral defect noted in the lateralizing to the left mandibular condylar head, unchange d from prior. IMPRESSION: 1. Stable volume loss in the cerebellum. Otherwise normal CT of the brain. No evidence of mass, acut e ischemia or hemorrhage. 2. Stable chronic changes of the cervical spine and left TMJ. No acute bone or joint abnormality. Report Dictated By: Stanford Bass MD at 11/28/2017 1:33 PM Report E-Signed By: Stanford Bass MD at 11/28/2017 1:38 PM WSN:[id number]
[2017-11-28] MEDS ORDERED: MULTIVITAMINS TAB PO ONE (14:00)
[2017-11-28] MEDS ORDERED: THIAMINE HCL 100 MG TAB PO ONE (14:00)
[2017-11-28 14:16] VITALS: BP 111/92
== END 2017-11-28 14:42 | disposition home or self-care (01) ==
LOC: ER 12:39
DX: S09.90XA Unspecified injury of head, initial encounter (principal); R56.9 Unspecified convulsions; S00.81XA Abrasion of other part of head, initial encounter; F84.5 Asperger's syndrome
CPT/HCPCS: 70450; 72125; 80305; 81001; 83735; 85025; 96374; 99284; A9270; G0480; J2060; 80320; 82040; 82247; 82310; 82374; 82435; 82565; 82947; 84075; 84132; 84155; 84295; 84450; 84460; 84520

== ENCOUNTER → 2017-11-28 | Outpatient (CLI) | payer MEDICARE, BC ==
[2016-04-05 09:57] VITALS: BMI 23.1
== END ==
LOC: AMB 12:11
PROVIDERS: ATTEND Nurse Practitioner
DX: R56.9 Unspecified convulsions (principal); R51 Headache; S00.81XA Abrasion of other part of head, initial encounter
CPT/HCPCS: A0425; A0427

== ENCOUNTER 2017-12-06 10:43 | Emergency (ER) | payer MEDICARE, BC ==
[2016-04-05 09:57] VITALS: Wt 99.8 kg
--- NOTE | 2017-12-06 10:53 | ER Report ---
History and Physical Time Seen By MD: 10:53 Hx. of Stated Complaint: PT POSTICTAL, AX0 X3, HIT HEAD AND SMALL LAC ON FRONTAL HPI/ROS CHIEF COMPLAINT: Seizure HISTORY OF PRESENT ILLNESS: This is a 32-year-old male, well-known to the emergency department, who presents to the emergency department via EMS for a seizure. Patient states he was sitting in a chair at the local coffee shop and felt a seizure coming on was assisted to the ground have a tonic-clonic type of seizure according to bystanders. Patient arrives at baseline, alert and oriented. Patient states he does have a headache however he's had a headache for the last several days with no changes, no nausea or vomiting. No visual changes. The patient did arrive in a c-collar, I did remove the c-collar according to the Nexus criteria it was negative. Patient had no pain with flexion or extension or rotation from right to left. Patient does not want a CT at this time. No chest pain or shortness of breath, no fevers, no rashes. He has 1 small abrasion to the left scalp along the hairline. REVIEW OF SYSTEMS: Constitutional: No fever, no chills. Eyes: No discharge. ENT: No sore throat. Cardiovascular: No chest pain, no palpitations. Respiratory: No cough, no shortness of breath. Gastrointestinal: No abdominal pain, no vomiting. Genitourinary: No hematuria. Musculoskeletal: No back pain. Skin: As above. Neurological: As above. Allergies: Coded Allergies: Penicillins (Verified Allergy, Severe, ANAPHYLAXIS, 09/28/17) Sulfa (Sulfonamide Antibiotics) (Verified Allergy, Unknown, 09/28/17) phenobarbital (Verified Allergy, Unknown, 09/28/17) Reported by Patient but states he doesnt know what happens to him. Uncoded Allergies: VERY SENSITIVE TO ALL MEDICATIONS (Allergy, Mild, 06/02/11) Home Meds No Active Prescriptions or Reported Meds Past Medical/Surgical History The patient has a past medical and surgical history of questionable aneurysm, seizures, Tourette's, GERD, incontinence, right tib-fib fracture, right clavicle , neck fracture, jaw fracture, alcohol abuse, depression, anxiety, as burgers, chronic edema of the lower extremities. Reviewed Nurses Notes: Yes Hx Smoking: Yes Smoking Status: Former Smoker Exposure to Second Hand Smoke?: Yes Hx Substance Use Disorder: No (Patient reports drug problem 10 years ago) Hx Alcohol Use: Yes (1 LITER DAILY) Constitutional Vital Sign - Last 24 Hours 12/06/17 12/06/17 12/06/17 12/06/17 10:43 10:45 10:58 11:00 Temp 99.4 Pulse 101 100 98 Resp 16 B/P (MAP) 125/84 (98) 125/84 127/86 (100) Pulse Ox 92 90 92 O2 Delivery Room Air 12/06/17 12/06/17 12/06/17 12/06/17 11:13 11:28 11:30 11:43 Pulse 90 86 85 B/P (MAP) 125/89 (101) Pulse Ox 92 93 94 12/06/17 12/06/17 12/06/17 12/06/17 11:58 12:00 12:13 12:18 Pulse 87 86 86 B/P (MAP) 128/87 (101) Pulse Ox 95 94 95 12/06/17 12/06/17 12/06/17 12/06/17 12:23 12:28 12:29 12:33 Pulse 88 87 ??? B/P (MAP) 130/91 (104) Pulse Ox 95 93 12/06/17 12/06/17 12/06/17 12/06/17 12:38 12:43 12:48 12:53 Pulse ? Physical Exam General Appearance: The patient is alert, has no immediate need for airway protection and no signs of toxicity. Eyes: Pupils equal and round no pallor or injection. ENT, Mouth: Mucous membranes are moist. Respiratory: There are no retractions, lungs are clear to auscultation. Cardiovascular: Regular rate and rhythm. Gastrointestinal: Abdomen is soft and non tender, no masses, bowel sounds normal. Neurological: Alert and oriented 4. Moving all extremities. Following all commands. No focal neuro deficits. Skin: Abrasion to the left scalp along the hairline. Small abrasions to the left hand. No obvious deformities. Musculoskeletal: Neck is supple non tender. Extremities painful left hand, small abrasions no obvious deformities. DIFFERENTIAL DIAGNOSIS: After history and physical exam differential diagnosis was considered for a seizure including but not limited to electrolyte abnormality, alcohol withdrawal, medication noncompliance, head injury, and breakthrough seizure. Medical Decision Making Data Points Result Diagram: 12/06/17 1040 12/06/17 1040 Laboratory Hematology Test 12/06/17 10:40 Red Blood Count 4.70 M/uL (4.00-5.60) Mean Corpuscular Volume 97.1 fL (80.0-96.0) Mean Corpuscular Hemoglobin 32.8 pg (26.0-33.0) Mean Corpuscular Hemoglobin Concent 33.8 g/dL (32.0-36.0) Red Cell Distribution Width 13.5 % (11.5-14.5) Mean Platelet Volume 7.9 fL (7.2-11.1) Neutrophils (%) (Auto) 76.8 % (39.4-72.5) Lymphocytes (%) (Auto) 13.5 % (17.6-49.6) Monocytes (%) (Auto) 8.4 % (4.1-12.4) Eosinophils (%) (Auto) 0.9 % (0.4-6.7) Basophils (%) (Auto) 0.4 % (0.3-1.4) Nucleated RBC Relative Count (auto) 0.0 /100WBC Neutrophils # (Auto) 5.6 K/uL (2.0-7.4) Lymphocytes # (Auto) 1.0 K/uL (1.3-3.6) Monocytes # (Auto) 0.6 K/uL (0.3-1.0) Eosinophils # (Auto) 0.1 K/uL (0.0-0.5) Basophils # (Auto) 0.0 K/uL (0.0-0.1) Nucleated RBC Absolute Count (auto) 0.00 K/uL Sodium Level 142 mmol/L (137-145) Potassium Level 4.3 mmol/L (3.5-5.0) Chloride Level 105 mmol/L (98-107) Carbon Dioxide Level 24 mmol/L (22-30) Blood Urea Nitrogen 21 mg/dl (9-21) Creatinine 1.00 mg/dl (0.66-1.25) Glomerular Filtration Rate Calc > 60.0 Random Glucose 106 mg/dl (75-110) Calcium Level 9.5 mg/dl (8.4-10.2) Total Bilirubin 0.8 mg/dl (0.2-1.3) Aspartate Amino Transf (AST/SGOT) 32 U/L (0-35) Alanine Aminotransferase (ALT/SGPT) 35 U/L (0-56) Alkaline Phosphatase 97 U/L (0-126) Total Protein 8.2 g/dl (6.3-8.2) Albumin 4.7 g/dl (3.5-5.0) Chemistry Test 12/06/17 10:40 White Blood Count 7.3 k/uL (4.5-11.0) Red Blood Count 4.70 M/uL (4.00-5.60) Hemoglobin 15.4 g/dL (14.0-18.0) Hematocrit 45.6 % (42.0-52.0) Mean Corpuscular Volume 97.1 fL (80.0-96.0) Mean Corpuscular Hemoglobin 32.8 pg (26.0-33.0) Mean Corpuscular Hemoglobin Concent 33.8 g/dL (32.0-36.0) Red Cell Distribution Width 13.5 % (11.5-14.5) Platelet Count 249 K/uL (150-450) Mean Platelet Volume 7.9 fL (7.2-11.1) Neutrophils (%) (Auto) 76.8 % (39.4-72.5) Lymphocytes (%) (Auto) 13.5 % (17.6-49.6) Monocytes (%) (Auto) 8.4 % (4.1-12.4) Eosinophils (%) (Auto) 0.9 % (0.4-6.7) Basophils (%) (Auto) 0.4 % (0.3-1.4) Nucleated RBC Relative Count (auto) 0.0 /100WBC Neutrophils # (Auto) 5.6 K/uL (2.0-7.4) Lymphocytes # (Auto) 1.0 K/uL (1.3-3.6) Monocytes # (Auto) 0.6 K/uL (0.3-1.0) Eosinophils # (Auto) 0.1 K/uL (0.0-0.5) Basophils # (Auto) 0.0 K/uL (0.0-0.1) Nucleated RBC Absolute Count (auto) 0.00 K/uL Glomerular Filtration Rate Calc > 60.0 Calcium Level 9.5 mg/dl (8.4-10.2) Total Bilirubin 0.8 mg/dl (0.2-1.3) Aspartate Amino Transf (AST/SGOT) 32 U/L (0-35) Alanine Aminotransferase (ALT/SGPT) 35 U/L (0-56) Alkaline Phosphatase 97 U/L (0-126) Total Protein 8.2 g/dl (6.3-8.2) Albumin 4.7 g/dl (3.5-5.0) ED Course/Re-evaluation Clinical Indication for ER IV: Hydration, IV Access ED Course The patient was noted to room. A history of physical obtained. Differential diagnoses were considered. IV was started. A CBC, CMP were obtained. 1 L normal saline was given. Lab studies unremarkable. I did review these lab studies with patient. Patient did refuse all imaging studies today,. Patient C-spine was cleared upon arrival negative Nexus criteria. Patient states feeling mildly better after 1 L of saline. Patient was instructed to avoid alcohol, follow up with his primary care provider in 2 days for reevaluation. The patient had no other questions or concerns at this time and was discharged home with his mother. 12/06/2017 12:10:54 pm the patient was complaining of left hand pain, with numbness and tingling. I did offer an x-ray and imaging studies the patient refused all imaging studies including a CT. 12/06/2017 12:24:33 pm patient states he has a hoarse voice, however he still declines any sort of imaging or any other interventions at this time. Decision to Disposition Date: Dec 06, 2017 Decision to Disposition Time: 12:10 Depart Departure Latest Vital Signs Vital Signs Date Time Temp Pulse Resp B/P (MAP) Pulse Ox O2 Delivery O2 Flow Rate FiO2 12/06/17 12:53 ??? 12/06/17 12:29 130/91 (104) 12/06/17 12:28 93 12/06/17 10:45 99.4 16 Room Air Impression: Primary Impression: Seizure Condition: Improved Disposition: HOME OR SELF-CARE Referrals: STEPHANIE FINK MD (PCP) 2 Days New Scripts No Active Prescriptions or Reported Meds Patient Instructions: Recurrent Seizures in Adults (ED) Additional Instructions: Be sure to drink plenty of water. Try to get plenty of rest. Be sure to take her medications as prescribed. Avoiding alcohol would be beneficial as this would help prevent seizure activity. Follow-up with your primary care provider in 2-3 days for reevaluation. Return to the ER for any other concerns or worsening symptoms. GRACIA VENEGAS NEGOTIATOR-BC Dec 06, 2017 10:53
[2017-12-06] MEDS ORDERED: NS(*) 0.9% 1000 ML BAG 1,000 ML IV ONE (11:10)
[2017-12-06 11:17] LABS: PLATELET COUNT, AUTOMATED 249 K/uL (150-450)
[2017-12-06 12:29] VITALS: BP 130/91
== END 2017-12-06 13:00 | disposition home or self-care (01) ==
LOC: ER 10:56
DX: R56.9 Unspecified convulsions (principal)
CPT/HCPCS: 85025; 96360; 99283; J7030; 82040; 82247; 82310; 82374; 82435; 82565; 82947; 84075; 84132; 84155; 84295; 84450; 84460; 84520

== ENCOUNTER → 2017-12-06 | Outpatient (CLI) | payer MEDICARE, BC ==
[2016-04-05 09:57] VITALS: BMI 23.1
== END ==
LOC: AMB 10:21
PROVIDERS: ATTEND Nurse Practitioner
DX: R56.9 Unspecified convulsions (principal); M54.2 Cervicalgia; E16.2 Hypoglycemia, unspecified; S00.212A Abrasion of left eyelid and periocular area, initial encounter; W18.30XA Fall on same level, unspecified, initial encounter; Y92.414 Local residential or business street as the place of occurrence of the external cause
CPT/HCPCS: A0425; A0427

== ENCOUNTER 2018-01-12 11:41 | Emergency (ER) | payer MEDICARE, BC ==
[2016-04-05 09:57] VITALS: Wt 99.8 kg
--- NOTE | 2018-01-12 11:43 | ER Report ---
History and Physical Time Seen By MD: 11:43 HPI/ROS CHIEF COMPLAINT: Facial trauma HISTORY OF PRESENT ILLNESS: Patient is a 32-year-old male here with complaints of left sided facial trauma with periorbital edema, ecchymosis, bleeding. Patient has a history significant for epilepsy and chronic alcoholism noncompliant on medications. Patient currently takes no medications. In the past he is had episodes of seizures with syncopal episodes. Today he was reportedly found on the sidewalk outside of a store laying unable blood, confused, lethargic and disoriented. It is unclear whether or not patient was postictal or concussed at time of evaluation. Patient was not answering questions or following commands initially but was protecting his airway at 96% on room air. Of note, the patient was bradycardic with sinus arrhythmia at time of arrival. Patient denies further injuries however review of systems is limited due to mental status. REVIEW OF SYSTEMS: Unable to obtain due to mental status Allergies: Coded Allergies: Penicillins (Verified Allergy, Severe, ANAPHYLAXIS, 01/12/18) Sulfa (Sulfonamide Antibiotics) (Verified Allergy, Unknown, 01/12/18) phenobarbital (Verified Allergy, Unknown, 01/12/18) Reported by Patient but states he doesnt know what happens to him. Uncoded Allergies: VERY SENSITIVE TO ALL MEDICATIONS (Allergy, Mild, 06/02/11) Home Meds No Active Prescriptions or Reported Meds Hx Smoking: Yes Smoking Status: Former Smoker Exposure to Second Hand Smoke?: Yes Hx Substance Use Disorder: No (Patient reports drug problem 10 years ago) Hx Alcohol Use: Yes (1 LITER DAILY) Constitutional Vital Sign - Last 24 Hours 01/12/18 01/12/18 01/12/18 01/12/18 11:41 11:48 11:54 11:56 Pulse ??? 46 48 Resp 12 B/P (MAP) 123/86 123/86 (98) Pulse Ox 95 95 O2 Delivery Room Air 01/12/18 01/12/18 01/12/18 01/12/18 12:00 12:11 12:26 12:30 Pulse ? B/P (MAP) 123/87 (99) ???/??? (1665) 01/12/18 12:41 Pulse 41 Pulse Ox 96 Physical Exam General Appearance: The patient is alert, has no immediate need for airway protection and no signs of toxicity. Significant facial deformity and ecchymosis and edema of the left periorbital area Eyes: Left periorbital edema and mild proptosis ENT, Mouth: Mucous membranes are moist, no obvious signs of dental trauma Respiratory: There are no retractions, lungs are clear to auscultation. Cardiovascular: Bradycardic Gastrointestinal: Abdomen is soft and non tender, no masses, bowel sounds normal. Neurological: Disoriented, lethargic, moving all extremities Skin: + Left periorbital edema and ecchymosis with mild proptosis of the left eye and mild scant bleeding from the lateral canthus Musculoskeletal: Neck is supple non tender. Extremities are nontender, nonswollen and have full range of motion. DIFFERENTIAL DIAGNOSIS: After history and physical exam differential diagnosis was considered for facial fracture, contusion, abrasion, intracranial bleeding, concussion Medical Decision Making Data Points Result Diagram: 01/12/18 1145 01/12/18 1145 Laboratory Hematology Test 01/12/18 11:45 Red Blood Count 5.00 M/uL (4.00-5.60) Mean Corpuscular Volume 94.1 fL (80.0-96.0) Mean Corpuscular Hemoglobin 32.5 pg (26.0-33.0) Mean Corpuscular Hemoglobin Concent 34.6 g/dL (32.0-36.0) Red Cell Distribution Width 13.3 % (11.5-14.5) Mean Platelet Volume 8.3 fL (7.2-11.1) Neutrophils (%) (Auto) 43.4 % (39.4-72.5) Lymphocytes (%) (Auto) 47.3 % (17.6-49.6) Monocytes (%) (Auto) 7.6 % (4.1-12.4) Eosinophils (%) (Auto) 1.5 % (0.4-6.7) Basophils (%) (Auto) 0.2 % (0.3-1.4) Nucleated RBC Relative Count (auto) 0.2 /100WBC Neutrophils # (Auto) 2.7 K/uL (2.0-7.4) Lymphocytes # (Auto) 3.0 K/uL (1.3-3.6) Monocytes # (Auto) 0.5 K/uL (0.3-1.0) Eosinophils # (Auto) 0.1 K/uL (0.0-0.5) Basophils # (Auto) 0.0 K/uL (0.0-0.1) Nucleated RBC Absolute Count (auto) 0.01 K/uL Prothrombin Time 14.0 seconds (12.0-14.4) Prothromb Time International Ratio 1.07 Activated Partial Thromboplast Time 31 seconds (23-35) Sodium Level 141 mmol/L (137-145) Potassium Level 3.9 mmol/L (3.5-5.0) Chloride Level 104 mmol/L (98-107) Carbon Dioxide Level 22 mmol/L (22-30) Blood Urea Nitrogen 13 mg/dl (9-21) Creatinine 0.90 mg/dl (0.66-1.25) Glomerular Filtration Rate Calc > 60.0 Random Glucose 121 mg/dl (75-110) Lactate 4.5 mmol/L (0.7-2.1) Calcium Level 9.2 mg/dl (8.4-10.2) Total Bilirubin 1.1 mg/dl (0.2-1.3) Aspartate Amino Transf (AST/SGOT) 27 U/L (0-35) Alanine Aminotransferase (ALT/SGPT) 27 U/L (0-56) Alkaline Phosphatase 77 U/L (0-126) Total Protein 7.9 g/dl (6.3-8.2) Albumin 4.7 g/dl (3.5-5.0) Lipase 52 U/L (23-300) Serum Alcohol < 10 mg/dl Chemistry Test 01/12/18 11:45 White Blood Count 6.3 k/uL (4.5-11.0) Red Blood Count 5.00 M/uL (4.00-5.60) Hemoglobin 16.3 g/dL (14.0-18.0) Hematocrit 47.1 % (42.0-52.0) Mean Corpuscular Volume 94.1 fL (80.0-96.0) Mean Corpuscular Hemoglobin 32.5 pg (26.0-33.0) Mean Corpuscular Hemoglobin Concent 34.6 g/dL (32.0-36.0) Red Cell Distribution Width 13.3 % (11.5-14.5) Platelet Count 261 K/uL (150-450) Mean Platelet Volume 8.3 fL (7.2-11.1) Neutrophils (%) (Auto) 43.4 % (39.4-72.5) Lymphocytes (%) (Auto) 47.3 % (17.6-49.6) Monocytes (%) (Auto) 7.6 % (4.1-12.4) Eosinophils (%) (Auto) 1.5 % (0.4-6.7) Basophils (%) (Auto) 0.2 % (0.3-1.4) Nucleated RBC Relative Count (auto) 0.2 /100WBC Neutrophils # (Auto) 2.7 K/uL (2.0-7.4) Lymphocytes # (Auto) 3.0 K/uL (1.3-3.6) Monocytes # (Auto) 0.5 K/uL (0.3-1.0) Eosinophils # (Auto) 0.1 K/uL (0.0-0.5) Basophils # (Auto) 0.0 K/uL (0.0-0.1) Nucleated RBC Absolute Count (auto) 0.01 K/uL Prothrombin Time 14.0 seconds (12.0-14.4) Prothromb Time International Ratio 1.07 Activated Partial Thromboplast Time 31 seconds (23-35) Glomerular Filtration Rate Calc > 60.0 Lactate 4.5 mmol/L (0.7-2.1) Calcium Level 9.2 mg/dl (8.4-10.2) Total Bilirubin 1.1 mg/dl (0.2-1.3) Aspartate Amino Transf (AST/SGOT) 27 U/L (0-35) Alanine Aminotransferase (ALT/SGPT) 27 U/L (0-56) Alkaline Phosphatase 77 U/L (0-126) Total Protein 7.9 g/dl (6.3-8.2) Albumin 4.7 g/dl (3.5-5.0) Lipase 52 U/L (23-300) Serum Alcohol < 10 mg/dl Coagulation Test 01/12/18 11:45 Prothrombin Time 14.0 seconds Prothromb Time International Ratio 1.07 Activated Partial Thromboplast Time 31 seconds Toxicology Test 01/12/18 11:45 Serum Alcohol < 10 mg/dl EKG/Imaging EKG Interpretation PATIENT NAME: JORGE LUIS PERES : [id number] MR: [id number] V: [id number] EXAM DATE: ORDERING PHYSICIAN: ROSEMARY HUGO TECHNOLOGIST: TIFFANY Test Reason : TRAUMA Blood Pressure : / mmHG Vent. Rate : 046 BPM Atrial Rate : 094 BPM P-R Int : 132 ms QRS Dur : 098 ms QT Int : 478 ms P-R-T Axes : 072 072 067 degrees QTc Int : 418 ms Sinus rhythm with marked sinus arrhythmia with occasional premature ventricular complexes Otherwise normal ECG When compared with ECG of 28-SEP-2017 01:42, premature ventricular complexes are now present T wave amplitude has increased in Anterior leads Referred By: BETHEL Confirmed By: Monitor Interpretation: Sinus Bradycardia Imaging EXAMINATION: CT Head without intravenous contrast CT Cervical spine without intravenous contrast HISTORY: Trauma. TECHNIQUE: Head: Axial images were obtained from the skull base to the vertex without intravenous contrast. Sagittal and coronal reformatted images are also submitted. Cervical spine: Axial images were obtained from the skull base through the upper thoracic spine without IV contrast administration. Coronal and sagittal reformatted images were obtained from the axial source data. One of the following dose optimization techniques was utilized in the performance of this exam: Automated exposure control; adjustment of the mA and/ or kV according to the patient's size; or use of an iterative reconstruction technique. Specific details can be referenced in the facility's radiology CT exam operational policy. COMPARISON: Head and cervical spine CT without contrast dated 11/28/2017. FINDINGS: HEAD: Slightly limited exam secondary to motion artifact obscuring the vertex. Brain volume: Normal. Ventricles: Negative. Acute ischemic changes: None. Hemorrhage: None. Masses / edema: None. Bocanegra-white: Negative. White matter: Negative. Vessels: Negative. Extra-axial: Negative. Calvarium / skull base: Negative. Visualized sinuses / orbits: Soft tissue swelling and hemorrhage in the left upper face with comminuted and is depressed left ZMC fracture. Mild left proptosis secondary inward buckling of the lateral orbital wall. CERVICAL SPINE: Alignment: Moderate convex leftward curvature. Cranio-cervical junction: Negative. Vertebral bodies: Stable mild vertebral body height loss at T1. Posterior elements: Negative. Hardware: None. Disc Spaces: Mild multilevel degenerative disc disease. Broad-based disc protrusion at C5-C6 causing at least mild spinal canal stenosis. Soft tissues: No prevertebral soft tissue swelling. Visualized upper chest: Negative. IMPRESSION: 1. Slightly limited evaluation of the head secondary to motion artifact obscuring the vertex. Otherwise no acute intracranial abnormality. 2. Soft tissue swelling and hemorrhage in the left upper face with comminuted and is depressed left ZMC fracture. Mild left proptosis secondary inward buckling of the lateral orbital wall. 3. No acute cervical spine fracture. 4. Mild multilevel degenerative disc disease with broad-based posterior disc protrusion at C5-C6 causing at least mild spinal canal stenosis. [place] [facility] [place]: Jorge Luis Peres : 1985 Visit/Account:[id number] Date of Sevice: 01/12/2018 2 VIEWS CHEST INDICATION: Fall. COMPARISON: 09/28/2017. FINDINGS: Cardiomediastinal silhouette and pulmonary vessels within normal limits. There is no focal infiltrate or lobar consolidation. There is no pneumothorax or pleural effusion. No nodule. Upper abdomen is unremarkable. No acute bony abnormality. The mid thoracic vertebral bodies show couple stable mild compressions of the superior endplate. Old right clavicular fracture. IMPRESSION: 1. No acute cardiopulmonary process. No indication of traumatic injury. EXAMINATION: CT Head without intravenous contrast CT Cervical spine without intravenous contrast HISTORY: Trauma. TECHNIQUE: Head: Axial images were obtained from the skull base to the vertex without intravenous contrast. Sagittal and coronal reformatted images are also submitted. Cervical spine: Axial images were obtained from the skull base through the upper thoracic spine without IV contrast administration. Coronal and sagittal reformatted images were obtained from the axial source data. One of the following dose optimization techniques was utilized in the performance of this exam: Automated exposure control; adjustment of the mA and/ or kV according to the patient's size; or use of an iterative reconstruction technique. Specific details can be referenced in the facility's radiology CT exam operational policy. COMPARISON: Head and cervical spine CT without contrast dated 11/28/2017. FINDINGS: HEAD: Slightly limited exam secondary to motion artifact obscuring the vertex. Brain volume: Normal. Ventricles: Negative. Acute ischemic changes: None. Hemorrhage: None. Masses / edema: None. Bocanegra-white: Negative. White matter: Negative. Vessels: Negative. Extra-axial: Negative. Calvarium / skull base: Negative. Visualized sinuses / orbits: Soft tissue swelling and hemorrhage in the left upper face with comminuted and is depressed left ZMC fracture. Mild left proptosis secondary inward buckling of the lateral orbital wall. CERVICAL SPINE: Alignment: Moderate convex leftward curvature. Cranio-cervical junction: Negative. Vertebral bodies: Stable mild vertebral body height loss at T1. Posterior elements: Negative. Hardware: None. Disc Spaces: Mild multilevel degenerative disc disease. Broad-based disc protrusion at C5-C6 causing at least mild spinal canal stenosis. Soft tissues: No prevertebral soft tissue swelling. Visualized upper chest: Negative. IMPRESSION: 1. Slightly limited evaluation of the head secondary to motion artifact obscuring the vertex. Otherwise no acute intracranial abnormality. 2. Soft tissue swelling and hemorrhage in the left upper face with comminuted and is depressed left ZMC fracture. Mild left proptosis secondary inward buckling of the lateral orbital wall. 3. No acute cervical spine fracture. 4. Mild multilevel degenerative disc disease with broad-based posterior disc protrusion at C5-C6 causing at least mild spinal canal stenosis. ED Course/Re-evaluation ED Course Patient is a 32-year-old male with a history of epilepsy and chronic alcoholism , noncompliant on medications here status post seizure with syncopal episode and facial trauma after being found on the sidewalk in a pool of blood. Patient was disoriented, confused and likely postictal or concussed at time of evaluation so complete review of systems was unable to be obtained. Patient labs were significant for a lactate of 4.5. Patient was given a liter fluid and placed on maintenance of 1 25 mL per hour. Patient was given thiamine and folic acid due to history of chronic alcoholism. CT imaging of the head and C-spine were completed and showed a left ZMC fracture with mild proptosis of the left eye and lateral orbital wall fracture. Clinical exam was significant for significant left periorbital edema, ecchymosis and scant bleeding from the lateral canthus. Chest x-ray showed no acute findings. I discussed the patient with Dr. Henderson and from [facility] who accepted the patient in transfer due to facial trauma and likely need for surgical repair due to the extent of the injury. Patient remained bradycardic throughout course with a sinus arrhythmia however maintained oxygen saturations on room air and was normotensive throughout course Decision to Disposition Date: Jan 12, 2018 Decision to Disposition Time: 14:[address] [facility]- Dr. Anna was accepting physician Depart Departure Latest Vital Signs Vital Signs Date Time Temp Pulse Resp B/P (MAP) Pulse Ox O2 Delivery O2 Flow Rate FiO2 01/12/18 12:41 41 96 01/12/18 12:30 ???/??? (1665) 01/12/18 11:48 12 Room Air Impression: Primary Impression: Facial trauma Additional Impressions: Facial fracture Seizure Concussion Condition: Improved Disposition: XFER TO [facility]UTE [facility]ARE [facility] ([facility]) Referrals: STEPHANIE FINK MD (PCP) New Scripts No Active Prescriptions or Reported Meds Problem Qualifiers ROSEMARY HUGO DO Jan 12, 2018 11:43
[2018-01-12] MEDS ORDERED: NS(*) 0.9% 1000 ML BAG 1,000 ML IV ONE ×2 (12:02→14:05)
[2018-01-12] MEDS ORDERED: DIPHTH/TETANUS/ACEL. PERTUSSIS IM ONE (12:05)
[2018-01-12 12:13] LABS: PLATELET COUNT, AUTOMATED 261 K/uL (150-450)
[2018-01-12 12:22] LABS: INR 1.07
--- NOTE | 2018-01-12 12:45 | EKG ---
FACILITY: [facility] - [place] PATIENT NAME: CONSUELO PERES : [id number] MR: [id number] V: [id number] EXAM DATE: ORDERING PHYSICIAN: ROSEMARY HUGO TECHNOLOGIST: TIFFANY Test Reason : TRAUMA Blood Pressure : / mmHG Vent. Rate : 046 BPM Atrial Rate : 094 BPM P-R Int : 132 ms QRS Dur : 098 ms QT Int : 478 ms P-R-T Axes : 072 072 067 degrees QTc Int : 418 ms Sinus rhythm with frequent premature atrial and junctional complexes complexes Nonspecific ST findings Confirmed by BRIDGET PAGE ([id number]) on 01/12/2018 4:41:20 PM Referred By: BETHEL Confirmed By:BRIDGET PAGE
--- NOTE | 2018-01-12 12:46 | RADIOLOGY IMAGING REPORT ---
FACILITY: [facility] - [place] PATIENT NAME: Jorge Luis Mckeon : 1985 MR: [id number] V: [id number] EXAM DATE: ORDERING PHYSICIAN: ROESMARY HUGO TECHNOLOGIST: Location: [facility] - [place] Patient: Jorge Luis Mckeon : 1985 Visit/Account:[id number] Date of Sevice: 01/12/2018 2 VIEWS CHEST INDICATION: Fall. COMPARISON: 09/28/2017. FINDINGS: Cardiomediastinal silhouette and pulmonary vessels within normal limits. There is no focal infiltrate or lobar consolidation. There is no pneumothorax or pleural effusion. No nodule. Upper abdomen is unremarkable. No acute bony abnormality. The mid thoracic vertebral bodies show coup le stable mild compressions of the superior endplate. Old right clavicular fracture. IMPRESSION: 1. No acute cardiopulmonary process. No indication of traumatic injury. Report Dictated By: Cody Gan at 01/12/2018 12:40 PM Report E-Signed By: Cody Gan at 01/12/2018 12:43 PM WSN:[id number]
--- NOTE | 2018-01-12 13:18 | RADIOLOGY IMAGING REPORT ---
FACILITY: [facility] PATIENT NAME: Jorge Luis Mckeon : 1985 MR: [id number] V: [id number] EXAM DATE: ORDERING PHYSICIAN: ROSEMARY HUGO TECHNOLOGIST: Location: [facility] - [place] Patient: Jorge Luis Mckeon : 1985 Visit/Account:[id number] Date of Sevice: 01/12/2018 EXAMINATION: CT Head without intravenous contrast CT Cervical spine without intravenous contrast HISTORY: Trauma. TECHNIQUE: Head: Axial images were obtained from the skull base to the vertex without intravenous contrast. Sa gittal and coronal reformatted images are also submitted. Cervical spine: Axial images were obtained from the skull base through the upper thoracic spine with out IV contrast administration. Coronal and sagittal reformatted images were obtained from the axial source data. One of the following dose optimization techniques was utilized in the performance of this exam: Autom ated exposure control; adjustment of the mA and/or kV according to the patient's size; or use of an i terative reconstruction technique. Specific details can be referenced in the facility's radiology C T exam operational policy. COMPARISON: Head and cervical spine CT without contrast dated 11/28/2017. FINDINGS: HEAD: Slightly limited exam secondary to motion artifact obscuring the vertex. Brain volume: Normal. Ventricles: Negative. Acute ischemic changes: None. Hemorrhage: None. Masses / edema: None. Bocanegra-white: Negative. White matter: Negative. Vessels: Negative. Extra-axial: Negative. Calvarium / skull base: Negative. Visualized sinuses / orbits: Soft tissue swelling and hemorrhage in the left upper face with comminu nayana and is depressed left ZMC fracture. Mild left proptosis secondary inward buckling of the lateral orbital wall. CERVICAL SPINE: Alignment: Moderate convex leftward curvature. Cranio-cervical junction: Negative. Vertebral bodies: Stable mild vertebral body height loss at T1. Posterior elements: Negative. Hardware: None. Disc Spaces: Mild multilevel degenerative disc disease. Broad-based disc protrusion at C5-C6 causing at least mild spinal canal stenosis. Soft tissues: No prevertebral soft tissue swelling. Visualized upper chest: Negative. IMPRESSION: 1. Slightly limited evaluation of the head secondary to motion artifact obscuring the vertex. Otherwi se no acute intracranial abnormality. 2. Soft tissue swelling and hemorrhage in the left upper face with comminuted and is depressed left Z MC fracture. Mild left proptosis secondary inward buckling of the lateral orbital wall. 3. No acute cervical spine fracture. 4. Mild multilevel degenerative disc disease with broad-based posterior disc protrusion at C5-C6 caus ing at least mild spinal canal stenosis. Results were called to ROSEMARY HUGO at 01/12/2018 1:10 PM. Report Dictated By: Richi Medellin MD at 01/12/2018 12:59 PM Report E-Signed By: Richi Medellin MD at 01/12/2018 1:14 PM WSN:[email or web address]
--- NOTE | 2018-01-12 13:19 | RADIOLOGY IMAGING REPORT ---
FACILITY: [facility] - [place] PATIENT NAME: Jorge Luis Mckeon : 1985 MR: [id number] V: [id number] EXAM DATE: ORDERING PHYSICIAN: ROSEMARY HUGO TECHNOLOGIST: Location: [facility] - [place] Patient: Jorge Luis Mckeon : 1985 Visit/Account:[id number] Date of Sevice: 01/12/2018 EXAMINATION: CT Head without intravenous contrast CT Cervical spine without intravenous contrast HISTORY: Trauma. TECHNIQUE: Head: Axial images were obtained from the skull base to the vertex without intravenous contrast. Sa gittal and coronal reformatted images are also submitted. Cervical spine: Axial images were obtained from the skull base through the upper thoracic spine with out IV contrast administration. Coronal and sagittal reformatted images were obtained from the axial source data. One of the following dose optimization techniques was utilized in the performance of this exam: Autom ated exposure control; adjustment of the mA and/or kV according to the patient's size; or use of an i terative reconstruction technique. Specific details can be referenced in the facility's radiology C T exam operational policy. COMPARISON: Head and cervical spine CT without contrast dated 11/28/2017. FINDINGS: HEAD: Slightly limited exam secondary to motion artifact obscuring the vertex. Brain volume: Normal. Ventricles: Negative. Acute ischemic changes: None. Hemorrhage: None. Masses / edema: None. Bocanegra-white: Negative. White matter: Negative. Vessels: Negative. Extra-axial: Negative. Calvarium / skull base: Negative. Visualized sinuses / orbits: Soft tissue swelling and hemorrhage in the left upper face with comminu nayana and is depressed left ZMC fracture. Mild left proptosis secondary inward buckling of the lateral orbital wall. CERVICAL SPINE: Alignment: Moderate convex leftward curvature. Cranio-cervical junction: Negative. Vertebral bodies: Stable mild vertebral body height loss at T1. Posterior elements: Negative. Hardware: None. Disc Spaces: Mild multilevel degenerative disc disease. Broad-based disc protrusion at C5-C6 causing at least mild spinal canal stenosis. Soft tissues: No prevertebral soft tissue swelling. Visualized upper chest: Negative. IMPRESSION: 1. Slightly limited evaluation of the head secondary to motion artifact obscuring the vertex. Otherwi se no acute intracranial abnormality. 2. Soft tissue swelling and hemorrhage in the left upper face with comminuted and is depressed left Z MC fracture. Mild left proptosis secondary inward buckling of the lateral orbital wall. 3. No acute cervical spine fracture. 4. Mild multilevel degenerative disc disease with broad-based posterior disc protrusion at C5-C6 caus ing at least mild spinal canal stenosis. Results were called to ROSEMARY HUGO at 01/12/2018 1:10 PM. Report Dictated By: Richi Medellin MD at 01/12/2018 12:59 PM Report E-Signed By: Richi Medellin MD at 01/12/2018 1:14 PM WSN:[id number]
[2018-01-12] MEDS ORDERED: THIAMINE HCL 200 MG/2 ML INJ IVP ONE (14:05)
[2018-01-12] MEDS ORDERED: FOLIC ACID 50 MG/10 ML 1ML INJ IV ONE (14:05)
[2018-01-12] MEDS ORDERED: THIAMINE HCL 200 MG/2 ML INJ ONE (14:20)
[2018-01-12 14:30] VITALS: BP 110/76
== END 2018-01-12 14:38 | disposition short-term general hospital (02) ==
LOC: ER 11:46
DX: S02.40FA Zygomatic fracture, left side, initial encounter for closed fracture (principal); R56.9 Unspecified convulsions; S06.0X9A Concussion with loss of consciousness of unspecified duration, initial encounter
CPT/HCPCS: 70450; 71046; 72125; 83605; 83690; 85025; 85610; 85730; 93005; 96361; 96374; 99285; G0480; J3411; J7030; 80320; 82040; 82247; 82310; 82374; 82435; 82565; 82947; 84075; 84132; 84155; 84295; 84450; 84460; 84520

== ENCOUNTER → 2018-01-12 | Outpatient (CLI) | payer MEDICARE, BC ==
[2016-04-05 09:57] VITALS: BMI 23.1
[~2018-01-12] MED LIST changes: +MILK THISTLE140 M1 PO; -MILK140C3 PO
== END ==
LOC: AMB 11:32
PROVIDERS: ATTEND Nurse Practitioner
DX: R55 Syncope and collapse (principal); S01.00XA Unspecified open wound of scalp, initial encounter; W18.30XA Fall on same level, unspecified, initial encounter; Y92.480 Sidewalk as the place of occurrence of the external cause
CPT/HCPCS: A0425; A0427

== ENCOUNTER → 2018-01-12 | Outpatient (CLI) | payer MEDICARE, BC ==
[2016-04-05 09:57] VITALS: BMI 23.1
== END ==
LOC: AMB 14:23
PROVIDERS: ATTEND Nurse Practitioner
DX: S02.40FA Zygomatic fracture, left side, initial encounter for closed fracture (principal); G40.909 Epilepsy, unspecified, not intractable, without status epilepticus; R00.1 Bradycardia, unspecified; M50.322 Other cervical disc degeneration at C5-C6 level; F10.129 Alcohol abuse with intoxication, unspecified; S02.82XA Fracture of other specified skull and facial bones, left side, initial encounter for closed fracture; W01.0XXA Fall on same level from slipping, tripping and stumbling without subsequent striking against object, initial encounter; Y92.480 Sidewalk as the place of occurrence of the external cause
CPT/HCPCS: A0425; A0426

== ENCOUNTER 2018-02-07 17:32 | Emergency (ER) | payer MEDICARE, BC ==
[2016-04-05 09:57] VITALS: Wt 99.8 kg
[2018-02-07] MEDS ORDERED: NS(*) 0.9% 1000 ML BAG 1,000 ML IV ONE (17:42)
--- NOTE | 2018-02-07 17:42 | ER Report ---
History and Physical Time Seen By MD: 17:36 Hx. of Stated Complaint: PT POSTICTAL, NOT VERBALLY RESPONSIVE HPI/ROS CHIEF COMPLAINT: Seizure HISTORY OF PRESENT ILLNESS: 32-year-old male patient presents to emergency room with complaint of seizure. Patient is well-known to the emergency room here due to his seizures. Patient was at [facility] and had a seizure. EMS was contacted. The time he was brought to the emergency room patient was postictal with limited responses. Patient stated that he was having pain, but was unable to identify where the pain was. Patient was also able to identify his location. REVIEW OF SYSTEMS: Unable to play to review of systems due to patient being postictal. Allergies: Coded Allergies: Penicillins (Verified Allergy, Severe, ANAPHYLAXIS, 01/12/18) Sulfa (Sulfonamide Antibiotics) (Verified Allergy, Unknown, 01/12/18) phenobarbital (Verified Allergy, Unknown, 01/12/18) Reported by Patient but states he doesnt know what happens to him. Uncoded Allergies: VERY SENSITIVE TO ALL MEDICATIONS (Allergy, Mild, 06/02/11) Home Meds No Active Prescriptions or Reported Meds Past Medical/Surgical History Patient has a past medical history of seizures, aneurysm, reflux, incontinence, right tib-fib fracture, facial bone fracture, clavicle fracture, seizure disorder, chronic cellulitis, drug problem, alcohol abuse, depression, Asperger's, anxiety. Patient has a surgical history of surgery on the right leg. Patient has a family medical history of psychiatric problems. Reviewed Nurses Notes: Yes Hx Smoking: Yes Smoking Status: Former Smoker Exposure to Second Hand Smoke?: Yes Hx Substance Use Disorder: No (Patient reports drug problem 10 years ago) Hx Alcohol Use: Yes (1 LITER DAILY) Constitutional Vital Sign - Last 24 Hours 02/07/18 02/07/18 02/07/18 02/07/18 17:32 17:36 17:47 17:51 Pulse 91 90 Resp 14 16 B/P (MAP) 108/57 108/57 (74) 103/54 (70) Pulse Ox 88 88 O2 Delivery Room Air 02/07/18 02/07/18 02/07/18 02/07/18 18:00 18:02 18:17 18:30 Pulse 86 84 Resp 14 16 B/P (MAP) 98/57 (71) 105/62 (76) Pulse Ox 88 91 02/07/18 18:32 Pulse 85 Resp 19 Pulse Ox 94 Physical Exam General Appearance: The patient is alert, has no immediate need for airway protection and no current signs of toxicity. Respiratory: Chest is non tender, lungs are clear to auscultation. Cardiac: regular rate and rhythm Gastrointestinal: Abdomen is soft and non tender, no masses, bowel sounds normal. Musculoskeletal: Neck: Neck is supple and non tender. Extremities have full range of motion and are non tender. Skin: No rashes or lesions. Patient has abrasion to the left eyebrow. Neuro: Patient is alert and oriented 2, he is able to follow me when I enter the room however he is unable to respond to questions. He is able, he was in hospital and that he was having pain. He is not able to identify where the pain was. DIFFERENTIAL DIAGNOSIS: After history and physical exam differential diagnosis was considered for seizure, head injury, intracranial hemorrhage, skull fracture. Medical Decision Making Data Points Result Diagram: 02/07/18 1745 02/07/18 1745 Laboratory Hematology Test 02/07/18 17:45 Red Blood Count 4.25 M/uL (4.00-5.60) Mean Corpuscular Volume 94.1 fL (80.0-96.0) Mean Corpuscular Hemoglobin 32.0 pg (26.0-33.0) Mean Corpuscular Hemoglobin Concent 34.0 g/dL (32.0-36.0) Red Cell Distribution Width 13.8 % (11.5-14.5) Mean Platelet Volume 7.7 fL (7.2-11.1) Neutrophils (%) (Auto) 68.8 % (39.4-72.5) Lymphocytes (%) (Auto) 22.2 % (17.6-49.6) Monocytes (%) (Auto) 6.6 % (4.1-12.4) Eosinophils (%) (Auto) 2.1 % (0.4-6.7) Basophils (%) (Auto) 0.3 % (0.3-1.4) Nucleated RBC Relative Count (auto) 0.0 /100WBC Neutrophils # (Auto) 4.3 K/uL (2.0-7.4) Lymphocytes # (Auto) 1.4 K/uL (1.3-3.6) Monocytes # (Auto) 0.4 K/uL (0.3-1.0) Eosinophils # (Auto) 0.1 K/uL (0.0-0.5) Basophils # (Auto) 0.0 K/uL (0.0-0.1) Nucleated RBC Absolute Count (auto) 0.00 K/uL Sodium Level 141 mmol/L (137-145) Potassium Level 4.1 mmol/L (3.5-5.0) Chloride Level 103 mmol/L (98-107) Carbon Dioxide Level 20 mmol/L (22-30) Blood Urea Nitrogen 11 mg/dl (9-21) Creatinine 0.80 mg/dl (0.66-1.25) Glomerular Filtration Rate Calc > 60.0 Random Glucose 74 mg/dl (75-110) Calcium Level 9.0 mg/dl (8.4-10.2) Magnesium Level 2.4 mg/dl (1.7-2.2) Total Bilirubin 0.4 mg/dl (0.2-1.3) Aspartate Amino Transf (AST/SGOT) 25 U/L (0-35) Alanine Aminotransferase (ALT/SGPT) 29 U/L (0-56) Alkaline Phosphatase 56 U/L (0-126) Total Protein 6.9 g/dl (6.3-8.2) Albumin 4.0 g/dl (3.5-5.0) Chemistry Test 02/07/18 17:45 White Blood Count 6.2 k/uL (4.5-11.0) Red Blood Count 4.25 M/uL (4.00-5.60) Hemoglobin 13.6 g/dL (14.0-18.0) Hematocrit 40.0 % (42.0-52.0) Mean Corpuscular Volume 94.1 fL (80.0-96.0) Mean Corpuscular Hemoglobin 32.0 pg (26.0-33.0) Mean Corpuscular Hemoglobin Concent 34.0 g/dL (32.0-36.0) Red Cell Distribution Width 13.8 % (11.5-14.5) Platelet Count 195 K/uL (150-450) Mean Platelet Volume 7.7 fL (7.2-11.1) Neutrophils (%) (Auto) 68.8 % (39.4-72.5) Lymphocytes (%) (Auto) 22.2 % (17.6-49.6) Monocytes (%) (Auto) 6.6 % (4.1-12.4) Eosinophils (%) (Auto) 2.1 % (0.4-6.7) Basophils (%) (Auto) 0.3 % (0.3-1.4) Nucleated RBC Relative Count (auto) 0.0 /100WBC Neutrophils # (Auto) 4.3 K/uL (2.0-7.4) Lymphocytes # (Auto) 1.4 K/uL (1.3-3.6) Monocytes # (Auto) 0.4 K/uL (0.3-1.0) Eosinophils # (Auto) 0.1 K/uL (0.0-0.5) Basophils # (Auto) 0.0 K/uL (0.0-0.1) Nucleated RBC Absolute Count (auto) 0.00 K/uL Glomerular Filtration Rate Calc > 60.0 Calcium Level 9.0 mg/dl (8.4-10.2) Magnesium Level 2.4 mg/dl (1.7-2.2) Total Bilirubin 0.4 mg/dl (0.2-1.3) Aspartate Amino Transf (AST/SGOT) 25 U/L (0-35) Alanine Aminotransferase (ALT/SGPT) 29 U/L (0-56) Alkaline Phosphatase 56 U/L (0-126) Total Protein 6.9 g/dl (6.3-8.2) Albumin 4.0 g/dl (3.5-5.0) ED Course/Re-evaluation ED Course Patient was admitted to an exam room, history and physical were obtained. Differential diagnoses were considered. On examination lungs are clear, heart is regular, abdomen soft nontender. Patient does have an abrasion to the left eyebrow. Initially patient was labeled answer questions as to where he was "hospital" and that he was having pain. He is unable to identify where the pain was. A CBC, CMP were drawn. Labs were unremarkable. On reevaluation patient was able to talk coherently. He was able tell me that he was on a bus and believes that is where he had a seizure. He is oriented and states that he would like to go home. We will go ahead and discharge patient home at this time. He is follow- up with his primary care provider. He is return to emergency room if condition worsens. Patient verbalized understanding and agreement with plan. Decision to Disposition Date: Feb 07, 2018 Decision to Disposition Time: 18:29 Depart Departure Latest Vital Signs Vital Signs Date Time Temp Pulse Resp B/P (MAP) Pulse Ox O2 Delivery O2 Flow Rate FiO2 02/07/18 18:32 85 19 94 02/07/18 18:30 105/62 (76) 02/07/18 17:32 Room Air Impression: Primary Impression: Seizure Condition: Improved Disposition: HOME OR SELF-CARE Referrals: STEPHANIE FINK MD (PCP) New Scripts No Active Prescriptions or Reported Meds Patient Instructions: Recurrent Seizures in Adults (ED) Additional Instructions: Increase fluid intake. Limit alcohol consumption. Follow up with your primary care provider in the next week. Return to the ER if condition worsens. Take Tylenol or Ibuprofen as needed for pain. You may ice the sore locations. PURNIMA PICKETT Feb 07, 2018 17:42
[2018-02-07 17:52] LABS: PLATELET COUNT, AUTOMATED 195 K/uL (150-450)
[2018-02-07 18:30] VITALS: BP 105/62
== END 2018-02-07 19:20 | disposition home or self-care (01) ==
LOC: ER 17:43
DX: R56.9 Unspecified convulsions (principal); F32.9 Major depressive disorder, single episode, unspecified; F41.9 Anxiety disorder, unspecified; F84.5 Asperger's syndrome
CPT/HCPCS: 36416; 82948; 83735; 85025; 96360; 99283; J7030; 82040; 82247; 82310; 82374; 82435; 82565; 82947; 84075; 84132; 84155; 84295; 84450; 84460; 84520

== ENCOUNTER → 2018-02-07 | Outpatient (CLI) | payer MEDICARE, BC ==
[2016-04-05 09:57] VITALS: BMI 23.1
== END ==
LOC: AMB 17:15
PROVIDERS: ATTEND Nurse Practitioner
DX: R56.9 Unspecified convulsions (principal); R41.82 Altered mental status, unspecified; E16.2 Hypoglycemia, unspecified
CPT/HCPCS: A0425; A0427

== ENCOUNTER 2018-02-14 14:19 | Emergency (ER) | payer MEDICARE, BC ==
[2016-04-05 09:57] VITALS: Wt 99.8 kg
[2018-02-14 14:22] VITALS: BP 121/83
--- NOTE | 2018-02-14 14:31 | ER Report ---
History and Physical Time Seen By MD: 14:30 Hx. of Stated Complaint: seizure 30 min ago HPI/ROS 32-year-old male who is frequently seen in the emergency department for seizure-like activity. He was brought into the emergency department today by paramedics for similar seizure activity. The patient did not receive any medications in route. He is awake and alert in the emergency department. He has a GCS of 15. He is refusing to answer most of my questions but answers the nurse's questions appropriately. His other questions or complaints. Remainder of the 14 system rev: Yes Allergies: Coded Allergies: Penicillins (Verified Allergy, Severe, ANAPHYLAXIS, 01/12/18) Sulfa (Sulfonamide Antibiotics) (Verified Allergy, Unknown, 01/12/18) phenobarbital (Verified Allergy, Unknown, 01/12/18) Reported by Patient but states he doesnt know what happens to him. Uncoded Allergies: VERY SENSITIVE TO ALL MEDICATIONS (Allergy, Mild, 06/02/11) Home Meds No Active Prescriptions or Reported Meds Reviewed Nurses Notes: Yes Old Medical Records Reviewed: Yes Hx Smoking: Yes Smoking Status: Former Smoker Exposure to Second Hand Smoke?: Yes Hx Substance Use Disorder: No (Patient reports drug problem 10 years ago) Hx Alcohol Use: Yes (1 LITER DAILY) Constitutional Vital Sign - Last 24 Hours 02/14/18 14:22 Temp 98.2 Pulse 89 Resp 18 B/P (MAP) 121/83 Pulse Ox 96 O2 Delivery Room Air Physical Exam General Appearance: The patient is alert, has no immediate need for airway protection and no current signs of toxicity. HEENT: hematoma to left eyebrow Respiratory: Chest is non tender, lungs are clear to auscultation. Cardiac: regular rate and rhythm Skin: No rashes or lesions. DIFFERENTIAL DIAGNOSIS: After history and physical exam differential diagnosis was considered for alcohol intoxication, seizure, withdrawal, Medical Decision Making ED Course/Re-evaluation ED Course Uncomplicated seizure-like activity. No seizure meds. Awake and alert, and Nursing person/place/time. D/C with mom Decision to Disposition Date: Feb 14, 2018 Decision to Disposition Time: 14:42 Depart Departure Latest Vital Signs Vital Signs Date Time Temp Pulse Resp B/P (MAP) Pulse Ox O2 Delivery O2 Flow Rate FiO2 02/14/18 14:22 98.2 89 18 121/83 96 Room Air Impression: Primary Impression: Seizure Condition: Improved Disposition: HOME OR SELF-CARE Referrals: STEPHANIE FINK MD (PCP) New Scripts No Active Prescriptions or Reported Meds Patient Instructions: Recurrent Seizures in Adults (DC) GISSELLE GUILLERMO MD Feb 14, 2018 14:31
== END 2018-02-14 14:42 | disposition home or self-care (01) ==
LOC: ER 14:33
DX: R56.9 Unspecified convulsions (principal)
CPT/HCPCS: 99281

== ENCOUNTER → 2018-02-14 | Outpatient (CLI) | payer MEDICARE, BC ==
[2016-04-05 09:57] VITALS: BMI 23.1
== END ==
LOC: AMB 13:35
PROVIDERS: ATTEND Nurse Practitioner
DX: R56.9 Unspecified convulsions (principal); F10.20 Alcohol dependence, uncomplicated
CPT/HCPCS: A0425; A0429

== ENCOUNTER → 2018-04-06 | Outpatient (CLI) | payer MEDICARE, BC ==
[2016-04-05 09:57] VITALS: BMI 23.1
[~2018-04-06] MED LIST changes: +CBD oil; +CYAN20004; -HYDR-4309 PO; +HYDR-653 PO
== END ==
LOC: LAB 08:08
PROVIDERS: ATTEND Emergency Medicine
DX: S02.92XA Unspecified fracture of facial bones, initial encounter for closed fracture (principal); R56.9 Unspecified convulsions
CPT/HCPCS: 36415; 82306; 83970; 84402; 84403

== ENCOUNTER → 2018-04-13 | Outpatient (CLI) | payer MEDICARE, BC ==
[2016-04-05 09:57] VITALS: BMI 23.1
--- NOTE | 2018-04-13 12:56 | RADIOLOGY IMAGING REPORT ---
FACILITY: [facility] [place] PATIENT NAME: Jorge Luis Mckeon : 1985 MR: [id number] V: [id number] EXAM DATE: ORDERING PHYSICIAN: MIGUEL AMES TECHNOLOGIST: Location: [facility] Patient: Jorge Luis Mckeon : 1985 Visit/Account:[id number] Date of Sevice: 04/13/2018 BRAIN W/O CONTRAST Comparisons: Head CT scan dated January 21, 2012 Additional pertinent history: History of seizure and alcoholism TECHNIQUE: Multiplanar, multisequence brain MRI was performed without gadolinium contrast. FINDINGS: Sagittal midline structures and craniocervical junction: Negative. Midline shift: None. Ventricles: Negative. Brain parenchyma: Diffusion weighted imaging: Negative. Gradient sequence: Negative. T2 weighted FLAIR images: Negative. Extra-axial spaces: Negative. Dural venous sinuses and major arterial flow voids: Negative. Mastoid air cells and paranasal sinuses: Mild mucosal thickening involving both maxillary sinuses. Surrounding soft tissues and orbits: Negative. Impression: 1. No evidence of acute intracranial pathology. 2. Mild underlying paranasal sinus disease. Report Dictated By: Naresh Casey MD at 04/13/2018 12:48 PM Report E-Signed By: Naresh Casey MD at 04/13/2018 12:51 PM WSN:[id number]
== END ==
LOC: MRI 01:58
PROVIDERS: ATTEND Neurological Surgery
DX: J32.9 Chronic sinusitis, unspecified (principal); R56.9 Unspecified convulsions; F10.20 Alcohol dependence, uncomplicated
CPT/HCPCS: 70551

== ENCOUNTER → 2018-04-17 | Outpatient (CLI) | payer MEDICARE, BC ==
[2016-04-05 09:57] VITALS: BMI 23.1
== END ==
LOC: RESP 02:01
PROVIDERS: ATTEND Physician Assistant
DX: R94.01 Abnormal electroencephalogram [EEG] (principal)
CPT/HCPCS: 95819

== ENCOUNTER → 2018-04-24 | Outpatient (CLI) | payer MEDICARE, BC ==
[2016-04-05 09:57] VITALS: BMI 23.1
== END ==
LOC: LAB 17:34
PROVIDERS: ATTEND Emergency Medicine
DX: E29.1 Testicular hypofunction (principal)

== ENCOUNTER → 2018-04-26 | Outpatient (CLI) | payer MEDICARE, BC ==
[2016-04-05 09:57] VITALS: BMI 23.1
== END ==
LOC: LAB 09:02
PROVIDERS: ATTEND Emergency Medicine
DX: E29.1 Testicular hypofunction (principal)
CPT/HCPCS: 36415; 84403

== ENCOUNTER → 2018-09-13 | Outpatient (CLI) | payer MEDICARE, BC ==
[2016-04-05 09:57] VITALS: BMI 23.1
[~2018-09-13] MED LIST changes: +CHOL100059 PO; +FLU60VIA41 IM; -GABA-503 PO; +GABA-533 PO
== END ==
LOC: LAB 15:09
PROVIDERS: ATTEND Emergency Medicine
DX: E55.9 Vitamin D deficiency, unspecified (principal); D53.8 Other specified nutritional anemias
CPT/HCPCS: 36415; 82306; 82607

== ENCOUNTER 2018-10-21 20:07 | Emergency (ER) | payer MEDICARE, BC ==
[2016-04-05 09:57] VITALS: Wt 82.7 kg
--- NOTE | 2018-10-21 20:22 | ER Report ---
History and Physical Time Seen By MD: 20:22 Hx. of Stated Complaint: patient states having pain all over his body, shortness of breath, patient having halluicnations, hearing voices, wet dreams. HPI/ROS CHIEF COMPLAINT: Generalized pain, chest pain HISTORY OF PRESENT ILLNESS: 33-year-old male patient presents to emergency room with complaint of generalized pain, chest pain. Patient states that he has been having worsening pain for the past month. Patient states that over the last few days is gotten significantly worse. Patient states that he had multiple falls today in his home. He denies having any fevers or chills. He states that he's been having lots of urination, approximately every 10 seconds. He denies any nausea, vomiting or diarrhea. He states he's not had much of an appetite over the last few days. Patient states that today he woke up and had a jacket on his bed. He states he doesn't recall ejaculating and denies masturbation. Patient states that at this point in time he does have some penile pain. REVIEW OF SYSTEMS: Respiratory: No cough, no dyspnea. Cardiovascular: No chest pain, no palpitations. Gastrointestinal: No vomiting, no abdominal pain. Musculoskeletal: Generalized pain. Allergies: Coded Allergies: Penicillins (Verified Allergy, Severe, ANAPHYLAXIS, 01/12/18) Sulfa (Sulfonamide Antibiotics) (Verified Allergy, Unknown, 01/12/18) phenobarbital (Verified Allergy, Unknown, 01/12/18) Reported by Patient but states he doesnt know what happens to him. Uncoded Allergies: VERY SENSITIVE TO ALL MEDICATIONS (Allergy, Mild, 06/02/11) Home Meds Active Scripts Cholecalciferol (Vitamin D3) (VITAMIN D3) 1,000 Unit Capsule, 2000 UNIT PO DAILY, #100 CAPSULE 3 Refills Prov:STEPHANIE FINK MD 09/25/18 Reported Medications Cyanocobalamin (Vitamin B-12) (Vitamin B-12) Unknown Strength Tablet 04/04/18 [CBD oil] No Conflict Check 03/16/18 Past Medical/Surgical History Patient has a past medical history of seizures, aneurysm, reflux, incontinence, right tib-fib fracture, facial bone fracture, clavicle fracture, seizure disorde r, chronic cellulitis, drug problem, alcohol abuse, depression, Asperger's, anxiety. Patient has a surgical history of surgery on the right leg. Patient has a family medical history of psychiatric problems. Reviewed Nurses Notes: Yes Hx Smoking: Yes Smoking Status: Former Smoker Exposure to Second Hand Smoke?: Yes Hx Substance Use Disorder: No (Patient reports drug problem 10 years ago) Hx Alcohol Use: Yes (1 LITER DAILY) Constitutional Vital Sign - Last 24 Hours 10/21/18 20:13 Temp 99.9 Pulse 80 Resp 12 B/P (MAP) 108/74 Pulse Ox 99 O2 Delivery Room Air Physical Exam General Appearance: The patient is alert, has no immediate need for airway protection and no current signs of toxicity. Respiratory: Chest is non tender, lungs are clear to auscultation. Cardiac: regular rate and rhythm Gastrointestinal: Abdomen is soft and non tender, no masses, bowel sounds normal. Musculoskeletal: Neck: Neck is supple and non tender. Extremities have full range of motion and are non tender. Skin: No rashes or lesions. : Patient had no erythema, redness, tenderness on his penis. No obvious discharge. DIFFERENTIAL DIAGNOSIS: After history and physical exam differential diagnosis was considered for chest pain including but not limited to myocardial ischemia, pericarditis pulmonary embolus, chest wall pain, pleural inflammation and pulmonary infectious causes. Medical Decision Making Data Points Result Diagram: 10/21/18 2100 10/21/18 2100 Laboratory Hematology Test 10/21/18 21:00 Red Blood Count 4.43 M/uL (4.00-5.60) Mean Corpuscular Volume 92.4 fL (80.0-96.0) Mean Corpuscular Hemoglobin 31.0 pg (26.0-33.0) Mean Corpuscular Hemoglobin Concent 33.5 g/dL (32.0-36.0) Red Cell Distribution Width 13.4 % (11.5-14.5) Mean Platelet Volume 7.3 fL (7.2-11.1) Neutrophils (%) (Auto) 64.3 % (39.4-72.5) Lymphocytes (%) (Auto) 27.1 % (17.6-49.6) Monocytes (%) (Auto) 7.1 % (4.1-12.4) Eosinophils (%) (Auto) 1.0 % (0.4-6.7) Basophils (%) (Auto) 0.5 % (0.3-1.4) Nucleated RBC Relative Count (auto) 0.0 /100WBC Neutrophils # (Auto) 3.1 K/uL (2.0-7.4) Lymphocytes # (Auto) 1.3 K/uL (1.3-3.6) Monocytes # (Auto) 0.3 K/uL (0.3-1.0) Eosinophils # (Auto) 0.0 K/uL (0.0-0.5) Basophils # (Auto) 0.0 K/uL (0.0-0.1) Nucleated RBC Absolute Count (auto) 0.00 K/uL Erythrocyte Sedimentation Rate 3 mm/HOUR (0-15) Prothrombin Time 14.1 seconds (12.0-14.4) Prothromb Time International Ratio 1.09 Activated Partial Thromboplast Time 31 seconds (23-35) Sodium Level 141 mmol/L (137-145) Potassium Level 4.0 mmol/L (3.5-5.0) Chloride Level 105 mmol/L (98-107) Carbon Dioxide Level 28 mmol/L (22-30) Blood Urea Nitrogen 15 mg/dl (9-21) Creatinine 0.90 mg/dl (0.66-1.25) Glomerular Filtration Rate Calc > 60.0 Random Glucose 96 mg/dl (75-110) Calcium Level 8.8 mg/dl (8.4-10.2) Total Bilirubin 0.3 mg/dl (0.2-1.3) Aspartate Amino Transf (AST/SGOT) 22 U/L (0-35) Alanine Aminotransferase (ALT/SGPT) 18 U/L (0-56) Alkaline Phosphatase 73 U/L (0-126) Troponin I < 0.012 ng/ml C-Reactive Protein < 0.5 mg/dl (<1.0) Total Protein 6.7 g/dl (6.3-8.2) Albumin 4.0 g/dl (3.5-5.0) Chemistry Test 10/21/18 21:00 White Blood Count 4.9 k/uL (4.5-11.0) Red Blood Count 4.43 M/uL (4.00-5.60) Hemoglobin 13.7 g/dL (14.0-18.0) Hematocrit 40.9 % (42.0-52.0) Mean Corpuscular Volume 92.4 fL (80.0-96.0) Mean Corpuscular Hemoglobin 31.0 pg (26.0-33.0) Mean Corpuscular Hemoglobin Concent 33.5 g/dL (32.0-36.0) Red Cell Distribution Width 13.4 % (11.5-14.5) Platelet Count 214 K/uL (150-450) Mean Platelet Volume 7.3 fL (7.2-11.1) Neutrophils (%) (Auto) 64.3 % (39.4-72.5) Lymphocytes (%) (Auto) 27.1 % (17.6-49.6) Monocytes (%) (Auto) 7.1 % (4.1-12.4) Eosinophils (%) (Auto) 1.0 % (0.4-6.7) Basophils (%) (Auto) 0.5 % (0.3-1.4) Nucleated RBC Relative Count (auto) 0.0 /100WBC Neutrophils # (Auto) 3.1 K/uL (2.0-7.4) Lymphocytes # (Auto) 1.3 K/uL (1.3-3.6) Monocytes # (Auto) 0.3 K/uL (0.3-1.0) Eosinophils # (Auto) 0.0 K/uL (0.0-0.5) Basophils # (Auto) 0.0 K/uL (0.0-0.1) Nucleated RBC Absolute Count (auto) 0.00 K/uL Erythrocyte Sedimentation Rate 3 mm/HOUR (0-15) Prothrombin Time 14.1 seconds (12.0-14.4) Prothromb Time International Ratio 1.09 Activated Partial Thromboplast Time 31 seconds (23-35) Glomerular Filtration Rate Calc > 60.0 Calcium Level 8.8 mg/dl (8.4-10.2) Total Bilirubin 0.3 mg/dl (0.2-1.3) Aspartate Amino Transf (AST/SGOT) 22 U/L (0-35) Alanine Aminotransferase (ALT/SGPT) 18 U/L (0-56) Alkaline Phosphatase 73 U/L (0-126) Troponin I < 0.012 ng/ml C-Reactive Protein < 0.5 mg/dl (<1.0) Total Protein 6.7 g/dl (6.3-8.2) Albumin 4.0 g/dl (3.5-5.0) Coagulation Test 10/21/18 21:00 Prothrombin Time 14.1 seconds Prothromb Time International Ratio 1.09 Activated Partial Thromboplast Time 31 seconds EKG/Imaging EKG Interpretation 12 lead EKG: Rhythm: normal sinus rhythm with a ventricular rate of 70 bpm [place]: normal QRS: normal ST segments: normal Imaging CT Head without contrast and CT Cervical spine: Indication: falls Comparison: Brain MRI 04/13/2018, head CT 01/12/2018 Technique: CT head: Axial CT images were obtained through the brain from the skull base to the vertex without administration of IV contrast. Reformatted coronal and sagittal images were also obtained. Technique: CT cervical spine: Axial CT imaging of the cervical spine was performed. 2-D sagittal and coronal CT reformats were also obtained. One of the following dose optimization techniques was utilized in the performance of this exam: Automated exposure control; adjustment of the mA and/or kV according to the patient's size; or use of an iterative reconstruction technique. Specific details can be referenced in the facility's radiology CT exam operational policy. FINDINGS: CT head: No evidence of mass, mass effect, or midline shift. No acute intracranial hemorrhage or acute territorial infarction. Skull is nonacute. Globes and orbits are nonacute. The visualized paranasal sinuses and mastoid air spaces are clear. Hardware in the left face related to prior [facility] fracture repair. CT cervical spine: No acute abnormality of cervical vertebral body height and alignment. No cervical spine fracture. There is no prevertebral soft tissue thickening. Mild multilevel spondylosis. Remaining visualized cervical soft tissues are nonacute. The airway is patent. The lung apices are clear. IMPRESSION: 1. No acute intracranial abnormality. 2. No acute osseous abnormality of the cervical spine. Report Dictated By: Norman Amato MD at 10/21/2018 11:03 PM Report E-Signed By: Norman Amato MD at 10/21/2018 11:09 PM. TWO VIEW CHEST 10/21/2018 8:31 PM. INDICATION: Chest Pain COMPARISON: 01/12/2018. FINDINGS: Lungs are well-expanded. The lungs are clear. No pneumothorax or pleural effusion. Heart size is normal. Probable remote injury to the lateral aspect of the right clavicle. IMPRESSION: No acute abnormality. Report Dictated By: Norman Amato MD at 10/21/2018 11:01 PM Report E-Signed By: Norman Amato MD at 10/21/2018 11:03 PM ED Course/Re-evaluation ED Course Patient is admitted to exam room, history and physical were obtained. Differential diagnoses were considered. On examination lungs are clear, heart is regular, abdomen soft nontender. A CBC, CMP, ESR, CRP, PT, PTT were done. The lab results were completely unremarkable. A CT scan of the head, cervical spine and chest x-ray were done. Labs were also unremarkable. We did attempt to get a urine sample, however the patient refused to give us a urine sample. We did discuss cathetering him, which is also refused. With labs and imaging results being negative we will go ahead and discharge patient home at this time. He is to follow-up with his primary care provider on Tuesday. He is to call to make an appointment. He is continue with his normal medications. He states increase fluid intake, get plenty of rest. I discussed this with the patient who verbalized understanding and agreement with plan. Decision to Disposition Date: October 21, 2018 Decision to Disposition Time: 23:18 Depart Departure Latest Vital Signs Vital Signs Date Time Temp Pulse Resp B/P (MAP) Pulse Ox O2 Delivery O2 Flow Rate FiO2 10/21/18 20:13 99.9 80 12 108/74 99 Room Air Impression: Primary Impression: Chest pain Additional Impression: Total body pain Condition: Improved Disposition: HOME OR SELF-CARE Referrals: STEPHANIE FINK MD (PCP) Patient Instructions: Chest Pain (ED) Additional Instructions: Limit activity by pain. Increase fluid intake. Get plenty of rest. Follow up with your primary care provider on Tuesday, call to make an ap pointment. Return to the ER if condition worsens. Continue with current medications or supplements. Problem Qualifiers Primary Impression: Chest pain Chest pain type: other chest pain Qualified Codes: R07.89 - Other chest pain NIEVESPURNIMAMICAH SETHI October 21, 2018 20:22
[2018-10-21] MEDS ORDERED: NS(*) 0.9% 1000 ML BAG 1,000 ML IV ONE (20:31)
[2018-10-21] MEDS ORDERED: ASPIRIN 81 MG CHEW PO ONE (20:35)
--- NOTE | 2018-10-21 21:01 | EKG ---
FACILITY: [facility] - [place] PATIENT NAME: CONSUELO PERES : [id number] MR: [id number] V: [id number] EXAM DATE: ORDERING PHYSICIAN: PURNIMA PICKETT TECHNOLOGIST: Test Reason : chest pain Blood Pressure : / mmHG Vent. Rate : 070 BPM Atrial Rate : 070 BPM P-R Int : 150 ms QRS Dur : 086 ms QT Int : 382 ms P-R-T Axes : 066 065 068 degrees QTc Int : 412 ms Normal sinus rhythm Normal ECG When compared with ECG of 12-JAN-2018 12:09, Vent. rate has increased BY 24 BPM Confirmed by RENATE HUNT ([id number]) on 10/22/2018 12:30:29 AM Referred By: Confirmed By:RENATE HUNT
[2018-10-21 21:12] LABS: PLATELET COUNT, AUTOMATED 214 K/uL (150-450)
[2018-10-21 21:41] LABS: INR 1.09
--- NOTE | 2018-10-21 23:07 | RADIOLOGY IMAGING REPORT ---
FACILITY: [facility] - [place], [place] PATIENT NAME: Jorge Luis Mckeon : 1985 MR: [id number] V: [id number] EXAM DATE: ORDERING PHYSICIAN: PURNIMA PICKETT TECHNOLOGIST: Location: [facility] [place] Patient: Jorge Luis Mckeon : 1985 Visit/Account:[id number] Date of Sevice: 10/21/2018 TWO VIEW CHEST 10/21/2018 8:31 PM. INDICATION: Chest Pain COMPARISON: 01/12/2018. FINDINGS: Lungs are well-expanded. The lungs are clear. No pneumothorax or pleural effusion. Heart size is normal. Probable remote injury to the lateral aspect of the right clavicle. IMPRESSION: No acute abnormality. Report Dictated By: Norman Amato MD at 10/21/2018 11:01 PM Report E-Signed By: Norman Amato MD at 10/21/2018 11:03 PM WSN:[id number]
[2018-10-21 23:11] VITALS: BP 106/67
--- NOTE | 2018-10-21 23:14 | RADIOLOGY IMAGING REPORT ---
FACILITY: [facility] PATIENT NAME: Jorge Luis Mckeon : 1985 MR: [id number] V: [id number] EXAM DATE: ORDERING PHYSICIAN: PURNIMA PICKETT TECHNOLOGIST: Location: [facility] Patient: Jorge Luis Mckeon : 1985 Visit/Account:[id number] Date of Sevice: 10/21/2018 CT Head without contrast and CT Cervical spine: Indication: falls Comparison: Brain MRI 04/13/2018, head CT 01/12/2018 Technique: CT head: Axial CT images were obtained through the brain from the skull base to the verte x without administration of IV contrast. Reformatted coronal and sagittal images were also obtained. Technique: CT cervical spine: Axial CT imaging of the cervical spine was performed. 2-D sagittal and coronal CT reformats were also obtained. One of the following dose optimization techniques was utilized in the performance of this exam: Autom ated exposure control; adjustment of the mA and/or kV according to the patient's size; or use of an i terative reconstruction technique. Specific details can be referenced in the facility's radiology C T exam operational policy. FINDINGS: CT head: No evidence of mass, mass effect, or midline shift. No acute intracranial hemorrhage or acute territorial infarction. Skull is nonacute. Globes and orbits are nonacute. The visualized paranasal sinuses and mastoid air spaces are clear. Hardware in the left face related to prior [facility] fracture repair. CT cervical spine: No acute abnormality of cervical vertebral body height and alignment. No cervical spine fracture. T here is no prevertebral soft tissue thickening. Mild multilevel spondylosis. Remaining visualized cervical soft tissues are nonacute. The airway is patent. The lung apices are clear. IMPRESSION: 1. No acute intracranial abnormality. 2. No acute osseous abnormality of the cervical spine. Report Dictated By: Norman Amato MD at 10/21/2018 11:03 PM Report E-Signed By: Norman Amato MD at 10/21/2018 11:09 PM WSN:[id number]
--- NOTE | 2018-10-21 23:15 | RADIOLOGY IMAGING REPORT ---
FACILITY: [facility] PATIENT NAME: Jorge Luis Mckeon : 1985 MR: [id number] V: [id number] EXAM DATE: ORDERING PHYSICIAN: PURNIMA PICKETT TECHNOLOGIST: Location: [facility] [place] Patient: Jorge Luis Mckeon : 1985 Visit/Account:[id number] Date of Sevice: 10/21/2018 CT Head without contrast and CT Cervical spine: Indication: falls Comparison: Brain MRI 04/13/2018, head CT 01/12/2018 Technique: CT head: Axial CT images were obtained through the brain from the skull base to the verte x without administration of IV contrast. Reformatted coronal and sagittal images were also obtained. Technique: CT cervical spine: Axial CT imaging of the cervical spine was performed. 2-D sagittal and coronal CT reformats were also obtained. One of the following dose optimization techniques was utilized in the performance of this exam: Autom ated exposure control; adjustment of the mA and/or kV according to the patient's size; or use of an i terative reconstruction technique. Specific details can be referenced in the facility's radiology C T exam operational policy. FINDINGS: CT head: No evidence of mass, mass effect, or midline shift. No acute intracranial hemorrhage or acute territorial infarction. Skull is nonacute. Globes and orbits are nonacute. The visualized paranasal sinuses and mastoid air spaces are clear. Hardware in the left face related to prior [facility] fracture repair. CT cervical spine: No acute abnormality of cervical vertebral body height and alignment. No cervical spine fracture. T here is no prevertebral soft tissue thickening. Mild multilevel spondylosis. Remaining visualized cervical soft tissues are nonacute. The airway is patent. The lung apices are clear. IMPRESSION: 1. No acute intracranial abnormality. 2. No acute osseous abnormality of the cervical spine. Report Dictated By: Norman Amato MD at 10/21/2018 11:03 PM Report E-Signed By: Norman Amato MD at 10/21/2018 11:09 PM WSN:[id number]
== END 2018-10-21 23:37 | disposition home or self-care (01) ==
LOC: ER 20:19
DX: R07.89 Other chest pain (principal); Z91.81 History of falling
CPT/HCPCS: 70450; 71046; 72125; 84484; 85025; 85610; 85651; 85730; 86140; 93005; 96360; 99284; A9270; J7030; 82040; 82247; 82310; 82374; 82435; 82565; 82947; 84075; 84132; 84155; 84295; 84450; 84460; 84520

== ENCOUNTER → 2018-10-21 | Outpatient (CLI) | payer MEDICARE, BC ==
[2016-04-05 09:57] VITALS: BMI 23.1
== END ==
LOC: AMB 19:51
PROVIDERS: ATTEND Nurse Practitioner
DX: R41.82 Altered mental status, unspecified (principal); R52 Pain, unspecified
CPT/HCPCS: A0425; A0427

== ENCOUNTER 2018-11-09 20:17 | Emergency (ER) | payer MEDICARE, BC ==
[2016-04-05 09:57] VITALS: Wt 82.7 kg
--- NOTE | 2018-11-09 20:26 | ER Report ---
History and Physical Time Seen By MD: 20:21 Hx. of Stated Complaint: PT HAD WITNESSED SEIZURE HPI/ROS CHIEF COMPLAINT: Witnessed seizure HISTORY OF PRESENT ILLNESS: 33 year-old male with a known history of seizures was brought in by EMS after having a witnessed seizure he was found down in public. There is a small amount of blood in the left parietal scalp. Patient's alert and oriented 3. He's singeing his usual state of mentation. He does not appear grossly postictal. Patient denies alcohol ingestion. Patient denies recent alcohol ingestion. Patient states that he has seizures every day. Patient had a seizure back in December of last year and sustained facial fractures which required surgical repair. REVIEW OF SYSTEMS: Respiratory: No cough, no dyspnea. Cardiovascular: No chest pain, no palpitations. Gastrointestinal: No vomiting, no abdominal pain. Musculoskeletal: No back pain. Allergies: Coded Allergies: Penicillins (Verified Allergy, Severe, ANAPHYLAXIS, 01/12/18) Sulfa (Sulfonamide Antibiotics) (Verified Allergy, Unknown, 01/12/18) phenobarbital (Verified Allergy, Unknown, 01/12/18) Reported by Patient but states he doesnt know what happens to him. Uncoded Allergies: VERY SENSITIVE TO ALL MEDICATIONS (Allergy, Mild, 06/02/11) Home Meds Active Scripts Cholecalciferol (Vitamin D3) (VITAMIN D3) 1,000 Unit Capsule, 2000 UNIT PO RYAN Y, #100 CAPSULE 3 Refills Prov:STEPHANIE FINK MD 09/25/18 Reported Medications Cyanocobalamin (Vitamin B-12) (Vitamin B-12) Unknown Strength Tablet 04/04/18 [CBD oil] No Conflict Check 03/16/18 Past Medical/Surgical History Patient has a past medical history of seizures, aneurysm, reflux, incontinence, right tib-fib fracture, facial bone fracture, clavicle fracture, seizure disorder, chronic cellulitis, drug problem, alcohol abuse, depression, Asperger's, anxiety. Patient has a surgical history of surgery on the right leg. Patient has a family medical history of psychiatric problems. Hx Smoking: Yes Smoking Status: Former Smoker Exposure to Second Hand Smoke?: Yes Hx Substance Use Disorder: No (Patient reports drug problem 10 years ago) Hx Alcohol Use: Yes (1 LITER DAILY) Constitutional Vital Sign - Last 24 Hours 11/09/18 11/09/18 11/09/18 20:23 20:23 20:30 Temp 98.5 Pulse 64 Resp 14 B/P (MAP) 102/64 (77) 102/64 100/68 (79) Pulse Ox 94 O2 Delivery Room Air Physical Exam Vital signs stable, afebrile, pulse ox normal, slow affect, small amount of blood noted on the left parietal scalp, no deep laceration or abrasion noted General Appearance: The patient is alert, has no immediate need for airway protection and no current signs of toxicity. HEENT: Pupils equal and round no injection. TMs normal, oropharynx without tongue bite davila or trauma Respiratory: Chest is non tender, lungs are clear to auscultation. No chest wall tenderness Cardiac: regular rate and rhythm Gastrointestinal: Abdomen is soft and non tender, no masses, bowel sounds normal. Patient in a depends Musculoskeletal: Neck: Neck is supple and non tender. Extremities have full range of motion and are non tender. No evidence of trauma Skin: No rashes or lesions. DIFFERENTIAL DIAGNOSIS: After history and physical exam differential diagnosis was considered for a seizure including but not limited to electrolyte abnormality, alcohol withdrawal, medication noncompliance, head injury, and breakthrough seizure. Medical Decision Making ED Course/Re-evaluation ED Course Patient was admitted to an examination room. H&P was done. The differential diagnosis was considered. On clinical examination. Patient's alert and oriented 3. He is responding appropriately. Her some mild trauma to his left scalp. Records are reviewed. He has an old tetanus shot from 2016 became cur rent on his vaccinations. Patient's on no seizure medication. He is observed for 30 minutes without a seizure. Patient will like to go. Patient advised to follow-up with his primary care provider. Decision to Disposition Date: Nov 09, 2018 Decision to Disposition Time: 20:44 Depart Departure Latest Vital Signs Vital Signs Date Time Temp Pulse Resp B/P (MAP) Pulse Ox O2 Delivery O2 Flow Rate FiO2 11/09/18 20:30 100/68 (79) 11/09/18 20:23 98.5 64 14 94 Room Air Impression: Primary Impression: Breakthrough seizure Additional Impression: History of seizure disorder Condition: Improved Disposition: HOME OR SELF-CARE Referrals: STEPHANIE FINK MD (PCP) Patient Instructions: Recurrent Seizures in Adults (ED) Additional Instructions: Continue CBD oil as planned, follow up with primary care Dr Fink within one week Problem Qualifiers KELLI LIU DO Nov 09, 2018 20:27
[2018-11-09 20:30] VITALS: BP 100/68
== END 2018-11-09 21:04 | disposition home or self-care (01) ==
LOC: ER 20:33
DX: R56.9 Unspecified convulsions (principal)
CPT/HCPCS: 99282

== ENCOUNTER → 2018-11-09 | Outpatient (CLI) | payer MEDICARE, BC ==
[2016-04-05 09:57] VITALS: BMI 23.1
== END ==
LOC: AMB 20:00
PROVIDERS: ATTEND Nurse Practitioner
DX: R41.82 Altered mental status, unspecified (principal)
CPT/HCPCS: A0425; A0427

== ENCOUNTER 2018-11-12 16:59 | Emergency (ER) | payer MEDICARE, BC ==
[2016-04-05 09:57] VITALS: Wt 81.6 kg
[2018-11-12] MEDS ORDERED: levETIRAcetam 500 MG TAB PO ONE (17:10)
--- NOTE | 2018-11-12 17:11 | ER Report ---
History and Physical Time Seen By MD: 17:09 HPI/ROS CHIEF COMPLAINT: Seizure HISTORY OF PRESENT ILLNESS: Patient is a 33-year-old male long history of seizure multiple seizure disorder and medical noncompliance and alcohol abuse was at a coffee shop and had a witnessed seizure episode was brought here patient states he has not been on his medication is elected to not take medications does not even remember if and when he took his last medication. Patient has no physical complaints at this time. Patient is resting cough without presentation no chest pain shortness of breath nausea vomiting diarrhea fever chills REVIEW OF SYSTEMS: Respiratory: No cough, no dyspnea. Cardiovascular: No chest pain, no palpitations. Gastrointestinal: No vomiting, no abdominal pain. Musculoskeletal: No back pain. Remainder of the 14 system rev: Yes Allergies: Coded Allergies: Penicillins (Verified Allergy, Severe, ANAPHYLAXIS, 11/24/18) Sulfa (Sulfonamide Antibiotics) (Verified Allergy, Unknown, 11/24/18) phenobarbital (Verified Allergy, Unknown, 11/24/18) Reported by Patient but states he doesnt know what happens to him. Uncoded Allergies: VERY SENSITIVE TO ALL MEDICATIONS (Allergy, Mild, 06/02/11) Home Meds Active Scripts Cholecalciferol (Vitamin D3) (VITAMIN D3) 1,000 Unit Capsule, 2000 UNIT PO DAILY, #100 CAPSULE 3 Refills Prov:STEPHANIE FINK MD 09/25/18 Reported Medications Cyanocobalamin (Vitamin B-12) (Vitamin B-12) Unknown Strength Tablet 04/04/18 [CBD oil] No Conflict Check 03/16/18 Reviewed Nurses Notes: Yes Old Medical Records Reviewed: Yes Hx Smoking: Yes Smoking Status: Former Smoker Exposure to Second Hand Smoke?: Yes Hx Substance Use Disorder: No (Patient reports drug problem 10 years ago) Hx Alcohol Use: Yes (1 LITER DAILY) Physical Exam General Appearance: The patient is alert, has no immediate need for airway protection and no current signs of toxicity. [ ] Eyes: Pupils equal and round no injection. Respiratory: Chest is non tender, lungs are clear to auscultation. Cardiac: regular rate and rhythm [ ] Gastrointestinal: Abdomen is soft and non tender, no masses, bowel sounds normal. Musculoskeletal: Neck: Neck is supple and non tender. Extremities have full range of motion and are non tender. Skin: No rashes or lesions. [ ] DIFFERENTIAL DIAGNOSIS: After history and physical exam differential diagnosis was considered for seizure seizure disorder medication noncompliance Medical Decision Making Data Points Laboratory Hematology Test 11/12/18 17:18 Serum Alcohol < 10 mg/dl Chemistry Test 11/12/18 17:18 Serum Alcohol < 10 mg/dl Toxicology Test 11/12/18 17:18 Serum Alcohol < 10 mg/dl ED Course/Re-evaluation ED Course Patient care transferred Decision to Disposition Date: Nov 28, 2018 Decision to Disposition Time: 07:24 Depart Departure Impression: Primary Impression: Alcohol dependence Condition: Stable Disposition: HOME OR SELF-CARE Referrals: STEPHANIE FINK MD (PCP) KAROLINE GREGG MD Nov 12, 2018 17:11
[2018-11-12 18:00] VITALS: BP 99/68
== END 2018-11-12 17:55 | disposition home or self-care (01) ==
LOC: ER 17:06
DX: F10.20 Alcohol dependence, uncomplicated (principal)
CPT/HCPCS: 99283; A9270; G0480; 80320

== ENCOUNTER → 2018-11-12 | Outpatient (CLI) | payer MEDICARE, BC ==
[2016-04-05 09:57] VITALS: BMI 23.1
== END ==
LOC: AMB 16:34
PROVIDERS: ATTEND Nurse Practitioner
DX: R56.9 Unspecified convulsions (principal)
CPT/HCPCS: A0425; A0429

== ENCOUNTER 2018-11-24 23:04 | Emergency (ER) | payer MEDICARE, BC ==
[2016-04-05 09:57] VITALS: Wt 81.8 kg
--- NOTE | 2018-11-25 00:36 | ER Report ---
History and Physical Time Seen By MD: 00:05 Hx. of Stated Complaint: PATIENT HAD SEIZURE, FELL AND HIT HIS HEAD ON THE FLOOR. HPI/ROS CHIEF COMPLAINT: Seizure and laceration HISTORY OF PRESENT ILLNESS: Patient is accompanied by his mother to the emergency department. They were at his apartment. Mother states he walked into the kitchen and she heard him fall. He subsequently had a less than 5 minute seizure. She states that he had a large laceration to his right forehead and lots of bleeding. Patient does not recall events. Patient states that he was feeling well today. He now complains of a headache. Patient has a known seizure disorder is known not to take his medications. Per mother there was nothing else abnormal about today's seizure. REVIEW OF SYSTEMS: Constitutional: no fever Eyes: no blurred vision ENT: No sore throat. Cardiovascular: No chest pain, no palpitations. Respiratory: No cough, no shortness of breath. Gastrointestinal: No abdominal pain, no vomiting. Genitourinary: no dysuria; pt is incontinent at baseline Musculoskeletal: No back pain. Skin: No rashes. Neurological: above Remainder of the 14 system rev: Yes Allergies: Coded Allergies: Penicillins (Verified Allergy, Severe, ANAPHYLAXIS, 11/24/18) Sulfa (Sulfonamide Antibiotics) (Verified Allergy, Unknown, 11/24/18) phenobarbital (Verified Allergy, Unknown, 11/24/18) Reported by Patient but states he doesnt know what happens to him. Uncoded Allergies: VERY SENSITIVE TO ALL MEDICATIONS (Allergy, Mild, 06/02/11) Home Meds Active Scripts Cholecalciferol (Vitamin D3) (VITAMIN D3) 1,000 Unit Capsule, 2000 UNIT PO DAILY, #100 CAPSULE 3 Refills Prov:STEPHANIE FINK MD 09/25/18 Reported Medications Cyanocobalamin (Vitamin B-12) (Vitamin B-12) Unknown Strength Tablet 04/04/18 [CBD oil] No Conflict Check 03/16/18 Reviewed Nurses Notes: Yes Old Medical Records Reviewed: Yes Hx Smoking: Yes Smoking Status: Former Smoker Exposure to Second Hand Smoke?: Yes Hx Substance Use Disorder: No (Patient reports drug problem 10 years ago) Hx Alcohol Use: Yes (1 LITER DAILY) Constitutional Vital Sign - Last 24 Hours 11/24/18 11/24/18 11/24/18 11/24/18 23:09 23:19 23:30 23:34 Temp 99.2 Pulse 75 79 80 Resp 16 B/P (MAP) 129/80 122/83 (96) Pulse Ox 92 93 93 O2 Delivery Room Air 11/24/18 11/25/18 11/25/18 23:49 00:18 00:19 Pulse 81 ??? B/P (MAP) 118/80 (93) Pulse Ox 91 93 Physical Exam General Appearance: The patient is alert, has no immediate need for airway protection and no signs of toxicity. [ ] Eyes: Pupils equal and round no pallor or injection. ENT, Mouth: Mucous membranes are moist. Midface stable Large, gaping, jagged laceration to right forehead from above eyebrow to scalp line. Respiratory: There are no retractions, lungs are clear to auscultation. Cardiovascular: Regular rate and rhythm. Gastrointestinal: Abdomen is soft and non tender, no masses, bowel sounds normal. Neurological: awake, alert, oriented, moves all ext Skin: Warm and dry, no rashes; laceration as above Musculoskeletal: Neck is supple non tender. Extremities are nontender, nonswollen and have full range of motion. DIFFERENTIAL DIAGNOSIS: After history and physical exam differential diagnosis was considered for seizure, hypoglycemia, intracranial hemorrhage, skull fracture, or other complication of seizure Medical Decision Making Data Points Laboratory Hematology Test 11/25/18 00:39 Whole Blood Glucose 90 mg/DL (75-110) Chemistry Test 11/25/18 00:39 Whole Blood Glucose 90 mg/DL (75-110) ED Course/Re-evaluation ED Course 33 m multiple seizure history, noncompliant with meds; per mother she states total sz activity was 1-2 min and postictal period of 30 min; she specifically states they would not have come in if not for laceration. Therefore, do not think blood draw will be of clear benefit, however given injury ct obtained to r/o ich as result of hemorrhage, and glucose drawn; wnl at 90. Rpt neuro exam is normal. Pt ambulates without difficulty. CT shows no skull fx, subdural, or other complication of fall. Pt ambulates without difficulty on d/c as well. Procedure Procedure: Laceration repair. Verbal consent was obtained from the patient. The 6.5cm laceration on the right forehead was anesthitized with supraorbital block using 2mL of 1% lidocaine The wound was irrigated with 1 L normal saline, draped and explored to its base with a gloved finger. [ ] There were no deep structures involved. no fracture/stpoff was identified The wound was repaired with 11 3-0 ethilon sutures, including mutliple dog ear wound approximations. The wound repair was complex. The pr ocedure was performed by [myself]. Decision to Disposition Date: Nov 25, 2018 Decision to Disposition Time: 00:47 Depart Departure Latest Vital Signs Vital Signs Date Time Temp Pulse Resp B/P (MAP) Pulse Ox O2 Delivery O2 Flow Rate FiO2 11/25/18 00:19 ??? 93 11/25/18 00:18 118/80 (93) 11/24/18 23:09 99.2 16 Room Air Impression: Primary Impression: Seizure Additional Impression: Laceration Condition: Improved Disposition: HOME OR SELF-CARE Referrals: STEPHANIE FINK MD (PCP) 2 Days Patient Instructions: Facial Laceration (ED), Recurrent Seizures in Adults (ED) Additional Instructions: As we discussed, follow up with your primary doctor in 3 days for wound check, then in 8-9 days for suture removal. Return for signs of infection, draining pus, increased redness, or any concerns. You will likely have significant swell ing for a few days. Use ice 20min a time for swelling. Change dressing daily after the first 2 days, apply bacitracin to wound 3 times daily. You may shower but dab dry; do not wipe. Problem Qualifiers MATHEW GUILLERMO MD Nov 25, 2018 00:36
[2018-11-25 01:00] VITALS: BP 121/83
--- NOTE | 2018-11-25 01:03 | RADIOLOGY IMAGING REPORT ---
FACILITY: [facility] PATIENT NAME: Jorge Luis Mckeon : 1985 MR: [id number] V: [id number] EXAM DATE: ORDERING PHYSICIAN: MATHEW GUILLERMO TECHNOLOGIST: Location: [facility] Patient: Jorge Luis Mckeon : 1985 Visit/Account:[id number] Date of Sevice: 11/25/2018 CT BRAIN NO CONTRAST HISTORY: Seizure, fall, laceration COMPARISON STUDIES: 10/21/2018 TECHNIQUE: Contiguous axial images were obtained from the skull base to the vertex. One of the following dose optimization techniques was utilized in the performance of this exam: Autom ated exposure control; adjustment of the mA and/or kV according to the patient's size; or use of an i terative reconstruction technique. Specific details can be referenced in the facility's radiology C T exam operational policy. FINDINGS: Hemorrhage: Negative Ventricles / sulci / fissures: Negative Masses / midline shift: Negative White matter: Negative Bocanegra-white differentiation: Negative Extra-axial spaces: Negative Bones and skull base: Postoperative changes are noted from repair of a left orbital fracture. There a ppear to be healed fractures of the right maxillary sinus and lateral right orbit. No acute fractures are seen. Healed nasal fracture is also noted. Nasal septum is deviated towards the right. Visualized mastoid air cells / paranasal sinuses: Negative Right supraorbital soft tissue swelling and laceration is noted. Some tiny radiopaque foreign bodies are noted in the skin near the swelling. IMPRESSION: 1. No evidence for acute intracranial hemorrhage, mass or acute ischemia. 2. Right supraorbital soft tissue swelling and laceration. Tiny radiopaque foreign bodies noted in th e skin around the right supraorbital swelling, CT image 65. 3. Postoperative changes are noted from repair of a left orbital fracture. Several old facial fractur es are identified. Report Dictated By: Cody Hall MD at 11/25/2018 12:49 AM Report E-Signed By: Cody Hall MD at 11/25/2018 12:57 AM WSN:[id number]
== END 2018-11-25 01:11 | disposition home or self-care (01) ==
LOC: ER 23:26
DX: S01.81XA Laceration without foreign body of other part of head, initial encounter (principal); R56.9 Unspecified convulsions
CPT/HCPCS: 36416; 70450; 82948; 99284

== ENCOUNTER → 2018-11-27 | Outpatient (CLI) | payer MEDICARE, BC ==
[2016-04-05 09:57] VITALS: BMI 23.1
== END ==
LOC: LAB 11:30
PROVIDERS: ATTEND Emergency Medicine
DX: E55.9 Vitamin D deficiency, unspecified (principal)
CPT/HCPCS: 36415; 82306

== ENCOUNTER 2019-01-03 20:47 | Emergency (ER) | payer MEDICARE, BC ==
[2016-04-05 09:57] VITALS: Wt 83.9 kg
--- NOTE | 2019-01-03 20:39 | ER Report ---
History and Physical Time Seen By MD: 20:37 HPI/ROS CHIEF COMPLAINT: Seizure, postictal HISTORY OF PRESENT ILLNESS: 33 year-old male with a known history of seizures formerly on Keppra now uses CBD oil. Tonight he had a seizure and was heard s triking the ground by his neighbors. Called EMS who brought the patient in in cervical collar. He has a large hematoma on the back of his head. He was seen here approximately one week ago with similar presentation with a head laceration. He subsequently followed up in internal medicine clinic with Dr. Fink patient is quite postictal. Patient was monitored while CT of the head and cervical spine were performed. Patient's last tetanus shot was 11/14. Patient has abrasions on his left arm. REVIEW OF SYSTEMS: Respiratory: No cough, no dyspnea. Cardiovascular: No chest pain, no palpitations. Gastrointestinal: No vomiting, no abdominal pain. Musculoskeletal: No back pain. Allergies: Coded Allergies: Penicillins (Verified Allergy, Severe, ANAPHYLAXIS, 01/03/19) Sulfa (Sulfonamide Antibiotics) (Verified Allergy, Unknown, 01/03/19) phenobarbital (Verified Allergy, Unknown, 01/03/19) Reported by Patient but states he doesnt know what happens to him. Uncoded Allergies: VERY SENSITIVE TO ALL MEDICATIONS (Allergy, Mild, 06/02/11) Home Meds Reported Medications [CBD oil] No Conflict Check 03/16/18 Discontinued Reported Medications Cyanocobalamin (Vitamin B-12) (Vitamin B-12) Unknown Strength Tablet 04/04/18 Discontinued Scripts Cholecalciferol (Vitamin D3) (VITAMIN D3) 1,000 Unit Capsule, 2000 UNIT PO DAILY, #100 CAPSULE 3 Refills Prov:STEPHANIE FINK MD 09/25/18 Past Medical/Surgical History Past Medical History Neurologic: Reports hx of: seizures Cardiovascular: Reports hx of: DVT Musculoskeletal: Reports hx of: other musculoskeletal hx (dislocated shoulder) Psychiatric: Reports hx of: anxiety other psychiatric history (Asperger's syndrome) Reviewed Nurses Notes: Yes Old Medical Records Reviewed: Yes Hx Smoking: Yes Smoking Status: Former Smoker Exposure to Second Hand Smoke?: Yes Hx Substance Use Disorder: No (Patient reports drug problem 10 years ago) Hx Alcohol Use: Yes (1 LITER DAILY) Constitutional Vital Sign - Last 24 Hours 01/03/19 01/03/19 01/03/19 20:46 21:05 21:30 Temp 99.4 Pulse 92 82 Resp 16 19 B/P (MAP) 114/70 109/76 (87) 110/74 (86) Pulse Ox 90 93 O2 Delivery Room Air Physical Exam Vital signs stable, afebrile, pulse ox normal General Appearance: The patient is alert, has no immediate need for airway protection and no current signs of toxicity. Patient is postictal on slow to respond., Palpation of the head reveals tenderness to the occipital region. There are no open wounds or bleeding. HEENT: Pupils equal and round no injection. TMs normal, oropharynx without redness or exudate, mucous. Membranes are moist, no dental trauma, facial bones intact on palpation Respiratory: Chest is non tender, lungs are clear to auscultation. No chest wall tenderness Cardiac: regular rate and rhythm Gastrointestinal: Abdomen is soft and non tender, no masses, bowel sounds normal. Musculoskeletal: Neck: Neck is supple and non tender. Extremities have full range of motion and are non tender. Skin: No rashes or lesions. Neuro: Postictal, movement of extremities 4, slow to answer questions DIFFERENTIAL DIAGNOSIS: After history and physical exam differential diagnosis was considered for a seizure including but not limited to electrolyte abnormality, alcohol withdrawal, medication noncompliance, head injury, and breakthrough seizure., Additionallyhead injury including but not limited to concussion, skull fracture, intraparenchymal contusion, subarachnoid, subdural and epidural hematoma. Medical Decision Making Data Points Result Diagram: 01/03/19202901/03/192029 Laboratory Hematology Test 01/03/19 20:30 White Blood Count 6.0 k/uL (4.5-11.0) Red Blood Count 4.73 M/uL (4.00-5.60) Hemoglobin 14.4 g/dL (14.0-18.0) Hematocrit 43.3 % (42.0-52.0) Mean Corpuscular Volume 91.4 fL (80.0-96.0) Mean Corpuscular Hemoglobin 30.5 pg (26.0-33.0) Mean Corpuscular Hemoglobin Concent 33.3 g/dL (32.0-36.0) Red Cell Distribution Width 14.0 % (11.5-14.5) Platelet Count 245 K/uL (150-450) Mean Platelet Volume 7.5 fL (7.2-11.1) Neutrophils (%) (Auto) 47.1 % (39.4-72.5) Lymphocytes (%) (Auto) 43.9 % (17.6-49.6) Monocytes (%) (Auto) 7.2 % (4.1-12.4) Eosinophils (%) (Auto) 1.3 % (0.4-6.7) Basophils (%) (Auto) 0.5 % (0.3-1.4) Nucleated RBC Relative Count (auto) 0.0 /100WBC Neutrophils # (Auto) 2.8 K/uL (2.0-7.4) Lymphocytes # (Auto) 2.6 K/uL (1.3-3.6) Monocytes # (Auto) 0.4 K/uL (0.3-1.0) Eosinophils # (Auto) 0.1 K/uL (0.0-0.5) Basophils # (Auto) 0.0 K/uL (0.0-0.1) Nucleated RBC Absolute Count (auto) 0.00 K/uL Chemistry Test 01/03/19 20:30 Sodium Level 138 mmol/L (137-145) Potassium Level 4.3 mmol/L (3.5-5.0) Chloride Level 101 mmol/L (98-107) Carbon Dioxide Level 13 mmol/L (22-30) Blood Urea Nitrogen 14 mg/dl (9-21) Creatinine 0.90 mg/dl (0.66-1.25) Glomerular Filtration Rate Calc > 60.0 Random Glucose 89 mg/dl (75-110) Calcium Level 9.2 mg/dl (8.4-10.2) Total Bilirubin 0.6 mg/dl (0.2-1.3) Aspartate Amino Transf (AST/SGOT) 29 U/L (0-35) Alanine Aminotransferase (ALT/SGPT) 27 U/L (0-56) Alkaline Phosphatase 82 U/L (0-126) Total Protein 7.7 g/dl (6.3-8.2) Albumin 4.6 g/dl (3.5-5.0) Toxicology Test 01/03/19 20:30 Serum Alcohol < 10 mg/dl EKG/Imaging Imaging Results: CT scan of the head and cervical spine without contrast was obtained. The res ults of the study are no acute traumatic findings. The study was read by the radiologist. I viewed the images myself on the PACS system. ED Course/Re-evaluation ED Course Patient was admitted to an examination room. H&P was done. The differential diagnoses was considered. Patient status post seizure. He has a known history of seizures, noncompliant in taking seizure medication as noted in his most recent internal medicine note. He takes CBD oil. He thinks it prevents him from having seizures. The head and neck CT were performed. Patient's tetanus status is verified is up-to-date. Patient mental status improves. He has steady ambulation. He is discharged home. He is advised to follow-up with primary care this week. Decision to Disposition Date: Jan 03, 2019 Decision to Disposition Time: 21:44 Depart Departure Latest Vital Signs Vital Signs Date Time Temp Pulse Resp B/P (MAP) Pulse Ox O2 Delivery O2 Flow Rate FiO2 01/03/19 21:30 82 19 110/74 (86) 93 01/03/19 20:46 99.4 Room Air Impression: Primary Impression: Seizure Additional Impression: Scalp contusion Condition: Improved Disposition: HOME OR SELF-CARE Referrals: STEPHANIE FINK MD (PCP) Patient Instructions: Head Injury (ED), Recurrent Seizures in Adults (ED) Additional Instructions: Follow-up with your primary care doctor Aureliano this week Problem Qualifiers Additional Impression: Scalp contusion Encounter type: initial encounter Qualified Codes: S00.03XA - Contusion of scalp, initial encounter KELLI LIU DO Jan 03, 2019 20:39
[2019-01-03 21:01] LABS: PLATELET COUNT, AUTOMATED 245 K/uL (150-450)
[2019-01-03 21:30] VITALS: BP 110/74
--- NOTE | 2019-01-03 21:34 | RADIOLOGY IMAGING REPORT ---
FACILITY: [facility] - [place] PATIENT NAME: Jorge Luis Mckeon : 1985 MR: [id number] V: [id number] EXAM DATE: ORDERING PHYSICIAN: KELLI LIU TECHNOLOG[place]: [place] [facility] [place] Jorge Luis Mckeon : 1985 Visit/Account:[id number] Date of Sevice: 01/03/2019 EXAMINATION: CT head without IV contrast HISTORY: Fall and seizure COMPARISON: 11/25/2018 TECHNIQUE: Contiguous axial images were obtained from the skull base to the vertex without intraven ous contrast. Sagittal and coronal reformatted images are also submitted. One of the following dose optimization techniques was utilized in the performance of this exam: Autom ated exposure control; adjustment of the mA and/or kV according to the patient's size; or use of an i terative reconstruction technique. Specific details can be referenced in the facility's radiology C T exam operational policy. FINDINGS: Brain volume: Cerebellar atrophy, unchanged. Ventricles: Normal. Acute ischemic changes: None. Hemorrhage: None. Masses/edema: None. [place]anegra-white: Negative. White matter: Normal. Vessels: Negative. Extra-axial: Negative. Calvarium/scalp: Decreased/resolving right frontal hematoma. Skull base/visualized face: Negative. Visualized sinuses/orbits: Postsurgical changes involving the left orbital floor. IMPRESSION: 1. No acute intracranial findings. 2. Cerebellar atrophy, may be related to use of antiepileptic medication. 3. Resolving right frontal and posterior hematoma/contusions. Report Dictated By: MASSIMO GAVIN at 01/03/2019 9:19 PM Report E-Signed By: MASSIMO GAVIN at 01/03/2019 9:26 PM WSN:[email or web address]
--- NOTE | 2019-01-03 21:39 | RADIOLOGY IMAGING REPORT ---
FACILITY: [facility] - [place] PATIENT NAME: Jorge Luis Mckeon : 1985 MR: [id number] V: [id number] EXAM DATE: ORDERING PHYSICIAN: KELLI LIU TECHNOLOGIST: Location: [facility] - [place] Patient: Jorge Luis Mckeon : 1985 Visit/Account:[id number] Date of Sevice: 01/03/2019 EXAMINATION: CT cervical spine without IV contrast HISTORY: Seizure, fall COMPARISON: None. TECHNIQUE: Axial images were obtained from the skull base through the upper thoracic spine without I V contrast administration. Coronal and sagittal reformatted images were obtained from the axial [facility] e data. One of the following dose optimization techniques was utilized in the performance of this exam: Autom ated exposure control; adjustment of the mA and/or kV according to the patient's size; or use of an i terative reconstruction technique. Specific details can be referenced in the facility's radiology C T exam operational policy. FINDINGS: Alignment: Normal. Cranio-cervical junction: Negative. Vertebral bodies: Negative. Posterior elements: Negative. Hardware: None. Disc Spaces: Degenerative changes greatest at the C5-6 level with broad disc bulge resulting in mild spinal canal and bilateral foraminal stenosis. Soft tissues: Negative. Visualized upper chest: Negative. IMPRESSION: 1. No acute fracture or malalignment of the cervical spine. 2. Degenerative changes greatest at the C5-6 level with spinal canal and foraminal stenosis. Report Dictated By: MASSIMO GAVIN at 01/03/2019 9:26 PM Report E-Signed By: MASSIMO GAVIN at 01/03/2019 9:32 PM WSN:[email or web address]
== END 2019-01-03 21:59 | disposition home or self-care (01) ==
LOC: ER 20:50
DX: G40.909 Epilepsy, unspecified, not intractable, without status epilepticus (principal); S00.03XA Contusion of scalp, initial encounter
CPT/HCPCS: 70450; 72125; 85025; 99284; G0480; 80320; 82040; 82247; 82310; 82374; 82435; 82565; 82947; 84075; 84132; 84155; 84295; 84450; 84460; 84520

== ENCOUNTER → 2019-01-03 | Outpatient (CLI) | payer MEDICARE, BC ==
[2016-04-05 09:57] VITALS: BMI 23.1
== END ==
LOC: AMB 20:12
PROVIDERS: ATTEND Nurse Practitioner
DX: R41.82 Altered mental status, unspecified (principal); S50.312A Abrasion of left elbow, initial encounter
CPT/HCPCS: A0425; A0427